=== PATIENT | male | born 1965 | race Hispanic/Latino ===

== ENCOUNTER 2016-06-02 21:23 | Emergency (ER) | payer OTHER ==
[~2016-06-02] VITALS: Ht 167.6 cm; Wt 72.7 kg
[~2016-06-02 21:23] MED LIST: ASPI325T32 PO; ATOR20TA PO; CITA40TA13 PO; CLOP75TA28 PO; LISI-571 PO; LORA-303 PO; METO25TA6 PO; ONDA-54 PO; ONDA4TAB9 PO; TRAZ-115 PO
[2016-06-02 21:27] VITALS: BP 130/78; PULSE 92; RESP 16; O2SAT 97
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
[2016-06-02 21:59] LABS: Mean Corpuscular Hemoglobin 29.9 pg (27.0-35.0); Mean Corpuscular Volume 87.4 fL (81-100)
[2016-06-02 22:00] LABS: BASOPHILS % (AUTO) 0.2 % (0-3); EOSINOPHILS % (AUTO) 0.6 % (0-5); MONOCYTES % (AUTO) 7.5 % (4-12); Platelet Count 318 bil/L (150-400)
[2016-06-03 04:05] VITALS: BP 127/78; PULSE 88; RESP 16; O2SAT 96
[2016-06-03 07:52] VITALS: BP 155/91; PULSE 101; RESP 15; O2SAT 97
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
[2016-06-03 10:25] VITALS: BP 147/84; PULSE 99; RESP 19; O2SAT 96
[2016-06-03] MEDS ORDERED: CEPH-512 PO (10:37)
== END 2016-06-03 10:49 | disposition home or self-care (01) ==
LOC: SED 21:23
DX: S02.40DA Maxillary fracture, left side, initial encounter for closed fracture (principal); W18.39XA Other fall on same level, initial encounter; Y93.89 Activity, other specified; Y92.89 Other specified places as the place of occurrence of the external cause; Y99.8 Other external cause status; R45.851 Suicidal ideations; F10.120 Alcohol abuse with intoxication, uncomplicated; I11.9 Hypertensive heart disease without heart failure; E11.59 Type 2 diabetes mellitus with other circulatory complications; I25.10 Atherosclerotic heart disease of native coronary artery without angina pectoris; I25.2 Old myocardial infarction; E78.5 Hyperlipidemia, unspecified; Z95.5 Presence of coronary angioplasty implant and graft; Z79.82 Long term (current) use of aspirin; Z59.0 Homelessness
CPT/HCPCS: 70450; 70486; 80053; 81002; 82075; 84443; 85025; 90791; 99284; G0480

== ENCOUNTER 2016-06-11 23:12 | Inpatient (IN) | payer OTHER ==
[~2016-06-11] VITALS: Ht 167.6 cm; Wt 77.5 kg
[~2016-06-11 23:12] MED LIST changes: +CEPH-512 PO
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
[2016-06-11 23:20] VITALS: BP 143/95; PULSE 101; RESP 16; O2SAT 98
[2016-06-11] MEDS ORDERED: Haloperidol 5 mg/mL Inj IM PRN (23:35)
[2016-06-12] VITALS (11 sets, daily range): BP systolic 123–151; BP diastolic 78–102; PULSE 83–106; RESP 16–24; O2SAT 96–100
--- NOTE | 2016-06-12 10:13 | DRSVH ---
PROCEDURE: CT BRAIN WITHOUT CONTRAST ([id number]) INDICATIONS: off balance TECHNIQUE: Noncontrast 4.5 mm thick angled axial sections acquired from the foramen magnum to the vertex, with c oronal reformats. COMPARISON: [facility], CT, CT BRAIN WO CON, 06/02/2016, 22:06. FINDINGS: Image quality: Excellent. CSF spaces: Basal cisterns are patent. No extra-axial fluid collections. Ventricles are normal in size and shape. Brain: No intracranial hemorrhage, mass, or mass effect. There are small areas of encephalomalacia redemonstrated in the inferior right frontal lobe and right temporal lobe consistent with sequela of prior trauma or infarct. There are bilateral subcortical and periventricular areas of white matter h ypoattenuation consistent with moderate chronic small vessel ischemic changes. Skull and face: Calvarium and visualized facial bones demonstrate no acute fractures. There are fra ctures of the medial and lateral easley of the left maxillary sinus and lateral wall of the left orbit redemonstrated. Sinuses: Visualized sinuses redemonstrate complete opacification of the left maxillary sinus and mod erate mucosal thickening within the ethmoid and right maxillary sinuses. There is mild thickening wi thin the sphenoid sinuses. The mastoid air cells are clear. IMPRESSION: 1. No acute intracranial abnormality. 2. Small areas of encephalomalacia in the inferior right frontal and right temporal lobes consistent with sequela of prior trauma or infarcts redemonstrated. 3. Moderate chronic white matter small vessel ischemic changes. 4. Subacute fractures of the left orbit and maxillary sinus easley redemonstrated. 5. Sinus mucosal disease as well as complete opacification of the left maxillary sinus again noted. Dictated by: Italo Islas M.D. on 06/12/2016 at 10:03 Approved by: Italo Islas M.D. on 06/12/2016 at 10:12
--- NOTE | 2016-06-12 10:18 | DRSVH ---
PROCEDURE: CT CERVICAL SPINE WITHOUT CONTRAST ([id number]) INDICATIONS: fall TECHNIQUE: Noncontrast 3 mm thick sections acquired from the skull base to the T4 level. Sagittal and coronal r eformats were then constructed. For radiation dose reduction, the following was used: automated exp osure control, adjustment of mA and/or kV according to patient size. COMPARISON: [facility], CT, C-SPINE W/O CONTRAST, 02/21/2014, 7:25. FINDINGS: Image quality: Excellent. Bones: No fractures or dislocations. Visualized superior ribs are intact. Mild multilevel degenerat leigh disc changes and facet arthropathy are noted. Soft tissues: Prevertebral soft tissues are normal in thickness. No paravertebral hematomas. No ap ical pneumothoraces. Atherosclerotic calcifications noted in the carotid arteries. IMPRESSION: No fracture. No acute osseous lesion. If symptoms and/or clinical suspicion for patholog y persists, evaluation with MRI may be helpful for further assessment. Dictated by: Pau Sheffield MD, PhD on 06/12/2016 at 10:06 Approved by: Pau Sheffield MD, PhD on 06/12/2016 at 10:16
[2016-06-12] MEDS ORDERED: 0.9% Sodium Chloride 1,000 ML IV ONE (12:43)
[2016-06-12] MEDS ORDERED: Ondansetron 2 mg/mL 2 mL Inj IVPUSH PRN ×3 (12:45→14:50)
[2016-06-12 12:46] LABS: BASOPHILS % (AUTO) 0.4 % (0-3); EOSINOPHILS % (AUTO) 0.6 % (0-5); MONOCYTES % (AUTO) 7.2 % (4-12); Mean Corpuscular Hemoglobin 29.4 pg (27.0-35.0); Mean Corpuscular Volume 88.7 fL (81-100); NEUTROPHILS % (AUTO) 59.8 % (40-74); Platelet Count 225 bil/L (150-400)
[2016-06-12] MEDS ORDERED: LISI-571 PO (13:54)
[2016-06-12] MEDS ORDERED: PRAV40TA PO (13:54)
[2016-06-12] MEDS ORDERED: ASPI-973 PO (13:54)
[2016-06-12] MEDS ORDERED: CITA20TA11 PO (13:57)
[2016-06-12] MEDS ORDERED: CARV3.122 PO (13:59)
[2016-06-12] MEDS ORDERED: MIRT15TA6 PO (14:03)
[2016-06-12] MEDS ORDERED: Alum-Mag Hydrox-Simeth 30 mL Suspension PO PRN (14:05)
[2016-06-12] MEDS ORDERED: Thiamine Inj 100 MG, Folic Acid Inj 1 MG, Magnesium Sulfate 50% Inj 2 GM, Multivitamins... IV ONE ×10 (14:20→14:50)
[2016-06-12] MEDS ORDERED: Senna-Docusate 8.6-50 mg Tablet PO PRN (14:50)
[2016-06-12] MEDS ORDERED: Thiamine Inj 100 MG in 0.9% Sodium Chloride 100 ML IV SCH (14:50)
[2016-06-12 15:27] LABS: APPEARANCE,URINE HAZY (CLEAR,HAZY); COLOR,URINE STRAW (YELLOW); OCCULT BLOOD,URINE NEGATIVE (NEGATIVE); UROBILINOGEN,URINE NORMAL (NORMAL)
[2016-06-12] MEDS: 0.9% Sodium Chloride 1,000 ML IV SCH (15:44)
[2016-06-12] MEDS: Multivit-Miner-Folic Acid-Iron Tablet PO SCH (17:05)
--- NOTE | 2016-06-12 17:40 | PCM.HPMED ---
Subjective Date of Service Jun 12, 2016 Primary Provider: Admitting Physician: Oracio Donovan MD Primary Care Physician: [facility] Attending Physician: Oracio Donovan MD Admit Status: From the Emergency Department, Full Admit, [facility] Telemetry Chief Complaint: Acute alcohol withdrawal with seizure. History of Present Illness: "A 51 year old homeless male with a medical history including alcohol dependence , CAD, Non-STEMI, diabetes, hypertension, anxiety, suicidal ideation, and frequent ED visits with a previous diagnosis of malingering presents to the ED via EMS after being found on the ground at [employer] just prior to arrival, intoxicated on alcohol. EMS found the patient belligerent with a heart rate of 110 and a blood pressure of 140 systolic. The patient reports that he drank alcohol today because he lost all of his medications 2.5 weeks ago and that he "collapsed" this evening because he "didn't know where he was." The patient denies pain, suicidal ideation, homicidal ideation, or other symptoms currently. He regularly visits [facility]. The patient was recently in the ED on 06/02/16 for alcohol intoxication, suicidal ideation, a ground level fall, and a maxillary sinus fracture." Emergency physician history. The patient is rolled slightly non-participatory during our interview. He states that he drinks about 3 tall beers a day and his last was yesterday. He notes left shoulder pain. He did have a fall in the emergency department. He apparently had presented better intoxicated and was given sedatives and observed overnight. He then went into probable withdrawal this morning. Imaging was performed in the emergency department. No acute injury was noted. The patient notes he has been homeless for about the last year. He denies any illicit drug use. He does note a history of recurrent alcohol fall seizures. He denies chewing on this time. No urinary incontinence. He denies a headache or visual changes. No numbness or weakness of arms or legs. He also denies any chest pain or abdominal pain. He is hungry. He really cannot recall any other history over the last couple of days. Review of Systems: He notes normal bowel movements no blood per rectum normal urination. I will also reviewed and otherwise negative except as noted in history of present illness. Allergies Coded Allergies: No Known Allergies (Verified Allergy, Unknown, 02/24/15) Home Medications He has not been taking any medications for the last 2-1/2 weeks. PMH 1. Active alcoholism 2. History of alcohol all 3. History of alcohol fall seizures 4. History of CAD 5. History of NSTEMI. Family History He notes one uncle with alcoholism. Social History Hx Alcohol Use: Yes (DAILY "TAKES THE PAIN OF LIFE AWAY.") Hx Substance Use: No Hx Tobacco Use: No Smoking Status: Never Smoker Living Arrangement: Homeless Exam Vital Signs Vital Sign - Last Date Time Temp Pulse Resp B/P Pulse Ox O2 Delivery O2 Flow Rate FiO2 06/12/16 15:17 99 06/12/16 14:54 37.4 20 147/86 99 Nasal Cannula 1.00 Exam Oriented 3. No distress. Fluent speech. Flat affect. Slightly slow speech. Normal skull. Normal nose and ears. Anicteric sclera, symmetric pupils Oropharynx is unremarkable, no facial droop. Neck is supple, normal thyroid. No adenopathy. Lungs are clear, normal effort rate. Heart is regular without murmur gallop or rub. Abdomen soft, nondistended or tender. Extremities are free of pedal edema. Good radial and pedal pulses. Skin is free of rash, lesions. No petechiae or ecchymosis. Joints are grossly normal. Cranial nerves are grossly normal. Motor strength is normal in all extremities. Normal muscular tone. Lab and Diagnostics Result Diagram: 06/12/16 1225 06/12/16 1225 X-Rays, CTs and MRIs CT brain: 1. No acute intracranial abnormality. 2. Small areas of encephalomalacia in the inferior right frontal and right temporal lobes consistent with sequela of prior trauma or infarcts redemonstrated. 3. Moderate chronic white matter small vessel ischemic changes. 4. Subacute fractures of the left orbit and maxillary sinus easley redemonstrated. 5. Sinus mucosal disease as well as complete opacification of the left maxillary sinus again noted. CT cervical spine negative for acute fracture or dislocation. 12-lead ECG Normal sinus rhythm, without abnormalities. Assessment & Plan 1. Acute alcohol withdrawal, POA to rizo. The patient was placed on the alcohol fall protocol. He will also be fluid repleted and given thiamine and folate per protocol. 2. Alcohol fall seizure, POA. The patient will be placed on seizure precautions. 3. CAD, POA. This appears to be compensated. We will resume aspirin and beta- blockade as well as statin. 4. Alcohol induced hepatitis, POA. We will avoid Tylenol and follow clinically. Patients for resuscitation. Inpatient status, tonight's anticipated. Pain Evaluation: Adequate Pain Control Resuscitation Status: CPR: Attempt Resuscitation Time spent 40 minutes Oracio Donovan MD Jun 12, 2016 17:40
--- NOTE | 2016-06-12 18:12 | NUR ---
CIWA/Admit No reports of chest pain/pressure/discomfort. Tele SR/TACH 80s-l00s. BP within normal limits, distal pulses strong. No reports of SOB/dizziness. SPO2 100% on RA. Per report in ED, patient can desat to low 90s while sleeping. Continuous SPO2 on per CIWA protocol, CIWA 12-14. No reports of n/v/d/c or abdominal pain. Voiding without complication. 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 Patient drowsy, speech slurred/mumbled. Oriented to self only, knew he was in hospital but not city/year. JONY, reports bilateral numbness plantar surface of feet.
[2016-06-12] MEDS: Famotidine Inj 50 ML IV SCH (19:56)
[2016-06-12] MEDS: Heparin 5,000 Unit/mL Inj SUBQ SCH (19:56)
[2016-06-13] VITALS (7 sets, daily range): BP systolic 139–154; BP diastolic 96–106; PULSE 70–110; RESP 16–19; O2SAT 93–98
[2016-06-13] MEDS: 0.9% Sodium Chloride 1,000 ML IV SCH ×2 (04:13→08:35)
[2016-06-13 04:30] LABS: BASOPHILS % (AUTO) 0.7 % (0-3); EOSINOPHILS % (AUTO) 1.3 % (0-5); MONOCYTES % (AUTO) 11.1 % (4-12); Mean Corpuscular Hemoglobin 29.5 pg (27.0-35.0); Mean Corpuscular Volume 88.4 fL (81-100); NEUTROPHILS % (AUTO) 59.6 % (40-74); Platelet Count 196 bil/L (150-400)
--- NOTE | 2016-06-13 06:20 | NUR ---
CIWA pts CIWA score between 6-16 gave 30mg of IV Valium total this shift, pts main complaint has been his head and shoulder pain, gave tylenol and roxycodone x2 this shift, pt up with 1pa to BSC to void, tolerating po well. IVF running, no seizure noted
[2016-06-13] MEDS ORDERED: Potassium Chloride Oral 20 mEq SR Tab(K 3 - 3.7 & Creat < 2) PO ONE (06:45)
[2016-06-13] MEDS: Multivit-Miner-Folic Acid-Iron Tablet PO SCH (08:34)
[2016-06-13] MEDS: Heparin 5,000 Unit/mL Inj SUBQ SCH ×2 (08:34→20:16)
[2016-06-13] MEDS: Famotidine Inj 50 ML IV SCH ×2 (08:34→20:15)
--- NOTE | 2016-06-13 10:46 | PCM.PNMED ---
Subjective Date of Service Jun 13, 2016 Subjective Patient is somnolent. Somewhat anxious. No hallucinations. No seizures. No headache. No nausea vomiting or abdominal pain. No overnight events. Exam Vital Signs Vital Sign - Last Date Time Temp Pulse Resp B/P Pulse Ox O2 Delivery O2 Flow Rate FiO2 06/13/16 08:24 36.6 99 18 154/98 97 Room Air 06/12/16 14:54 1.00 Intake and Output 06/12/16 06/12/16 06/13/16 Cumulative From/Thru 15:00 23:00 07:00 06/12/16 15:25 - 06/13/16 06:32 Intake Total 1703 ml 2102 ml 3805 ml Output Total 550 ml 2750 ml 3300 ml Balance 1153 ml -648 ml 505 ml Intake Oral 800 ml 640 ml 1440 ml IV Total 903 ml 1462 ml 2365 ml Output Urine Total 550 ml 2750 ml 3300 ml # Bowel Movements 2 2 Exam Alert and oriented 3, no distress. Fluent speech. Slurred speech. Somnolent. Not tremulous. Anicteric sclera. Lungs are clear with normal rate and effort Heart is regular without murmur gallop or rub Abdomen soft nontender, flat Extremities are free of edema. Skin is free of rash or lesions. IVs and Medications Medications Reviewed: Medications were reviewed in detail Lab and Diagnostics Result Diagram: 06/13/1641306/13/16413 X-Rays, CTs and MRIs CT brain: 1. No acute intracranial abnormality. 2. Small areas of encephalomalacia in the inferior right frontal and right temporal lobes consistent with sequela of prior trauma or infarcts redemonstrated. 3. Moderate chronic white matter small vessel ischemic changes. 4. Subacute fractures of the left orbit and maxillary sinus easley redemonstrated. 5. Sinus mucosal disease as well as complete opacification of the left maxillary sinus again noted. CT cervical spine negative for acute fracture or dislocation. 12-lead ECG Normal sinus rhythm, without abnormalities. Assessment & Plan 1. Acute alcohol withdrawal, POA to rizo. The patient was placed on the alcohol fall protocol. He will also be fluid repleted and given thiamine and folate per protocol. This is improved. He is currently scoring about 14 on the alcohol protocol. No change in current plan. 2. Alcohol fall seizure, POA. The patient will be placed on seizure precautions. No recurrent seizure activity. 3. CAD, POA. This appears to be compensated. We will resume aspirin and beta- blockade as well as statin. This is stable. 4. Alcohol induced hepatitis, POA. We will avoid Tylenol and follow clinically. Patients for resuscitation. Inpatient status, tonight's anticipated. Resuscitation Status: CPR: Attempt Resuscitation Oracio Donovan MD Jun 13, 2016 10:46
--- NOTE | 2016-06-13 13:14 | NUR ---
Social Work: Screen D: Per EMR review, pt is a 51 year old male admitted for Severe ETOH Withdrawal. Pt is RAFAEL GOLDEN. PCP is through [facility]. [facility] is not listed. Advanced directives not completed- information provided by MANAGER DATA. Readmit score is moderate, 4/8. Pt's CIWA score is currently 7. MANAGER DATA discussed case with bedside RN. RN states that pt is conversational and is requesting MANAGER DATA. MANAGER DATA met with pt at bedside to discuss discharge planning. Pt reports that he is homeless and currently living on the streets. Pt is interested in housing resources and states that he does not wish to go the [facility] as he has previously been there and does not like a particular person who lives there. MANAGER DATA provided community resources along with contact info for the homeless shelters in [facility]. Pt states he does not wish to go to these facilities because they are out of the [facility]. MANAGER DATA discussed pt's history of substance use. Pt confirms a long history of drinking but does not elaborate on how much. Pt expresses interest in assistance with housing and treatment and signed LEYLA for [facility]. Pt then elaborated that he was previously open with [facility] for chemical dependency and that his counselor is Ty. Pt would still like to talk to Es with [facility]. t/c to [facility] at . They state that they cannot release any information to the MANAGER DATA because they do not have an LEYLA signed by the pt. A signed LEYLA by the pt can be faxed to , if the pt wishes. A: Pt who is homeless at baseline. P: Referral provided to CDP with [facility] who can assist with coordinating with pt's [facility] counselor, if he is established. KIM Umanzor
--- NOTE | 2016-06-13 17:49 | NUR ---
CIWA/HR/Pain No reports of chest pain/pressure/discomfort. Tele sinus tachy 99-low 100s, No reports of SOB, reports dizziness with standing. SPO2 on RA 97%, continuous SPO2 on per CIWA protocol. Mild abdominal pain with light palpation, reports mild intermittent nausea -- no heaving/emesis. Bowel tones normal, BM formed brown yesterday, no diarrhea or constipation. Patient speech slurred/mumbled. Oriented to self only, knows he is currently in a hospital but not the city/year. JONY, reports bilateral numbness plantar surface of feet. Patient becoming increasingly restless, CIWA 14-16. Reports shoulder/neck pain -- per patient "from when I fell", administered 5mg roxicodone x2, reports mild relief.
--- NOTE | 2016-06-13 21:38 | NUR ---
AMA: Pt noted to be increasing restless, PRN Valium given per CIWA protocol in addition to Roxicodone for pain. Pt up pacing around room states he "just need to leave for an hour and then he will come back" . electric meter installer helper to room, Pt a/ox3. putting on cloths and wanting to leave. Dr. Jean paged and made aware by electric meter installer helper. IV d/c intact. Explained to pt if he leaves he can not just return back to his room and he will have to come back through ER. Reviewed with pt potentials for leaving against medical advice including Withdrawal seizures, fall, injury, and . Pt verbalized understanding and signed AMA form.
--- NOTE | 2016-06-14 15:03 | PCM.DC.MED ---
Discharge Summary Date of Service Jun 13, 2016 Dates of Hospitalization Date of Hospital Admission Jun 12, 2016 at 14:06 Date of Discharge: Jun 13, 2016 Providers: Admitting Physician: Oracio Donovan MD [facility]: Oracio Donovan MD Diagnosis at Time of Discharge Diagnosis at Time of Discharge 1. Against medical is discharged 2. Alcohol withdrawal syndrome 3. Alcohol withdrawal seizure 4. Alcoholism 5. Alcohol induced hepatitis Procedures XRay, CTs & MRIs CT brain: 1. No acute intracranial abnormality. 2. Small areas of encephalomalacia in the inferior right frontal and right temporal lobes consistent with sequela of prior trauma or infarcts redemonstrated. 3. Moderate chronic white matter small vessel ischemic changes. 4. Subacute fractures of the left orbit and maxillary sinus easley redemonstrated. 5. Sinus mucosal disease as well as complete opacification of the left maxillary sinus again noted. CT cervical spine negative for acute fracture or dislocation. ECG 12 Lead Normal sinus rhythm, without abnormalities. Brief History "A 51 year old homeless male with a medical history including alcohol dependence , CAD, Non-STEMI, diabetes, hypertension, anxiety, suicidal ideation, and frequent ED visits with a previous diagnosis of malingering presents to the ED via EMS after being found on the ground at [employer] just prior to arrival, intoxicated on alcohol. EMS found the patient belligerent with a heart rate of 110 and a blood pressure of 140 systolic. The patient reports that he drank alcohol today because he lost all of his medications 2.5 weeks ago and that he "collapsed" this evening because he "didn't know where he was." The patient denies pain, suicidal ideation, homicidal ideation, or other symptoms currently. He regularly visits [facility]. The patient was recently in the ED on 06/02/16 for alcohol intoxication, suicidal ideation, a ground level fall, and a maxillary sinus fracture." Emergency physician history. The patient is rolled slightly non-participatory during our interview. He states that he drinks about 3 tall beers a day and his last was yesterday. He notes left shoulder pain. He did have a fall in the emergency department. He apparently had presented better intoxicated and was given sedatives and observed overnight. He then went into probable withdrawal this morning. Imaging was performed in the emergency department. No acute injury was noted. The patient notes he has been homeless for about the last year. He denies any illicit drug use. He does note a history of recurrent alcohol fall seizures. He denies chewing on this time. No urinary incontinence. He denies a headache or visual changes. No numbness or weakness of arms or legs. He also denies any chest pain or abdominal pain. He is hungry. He really cannot recall any other history over the last couple of days. Hospital Course 1. Acute alcohol withdrawal, POA to rizo. The patient was placed on the alcohol fall protocol. He will also be fluid repleted and given thiamine and folate per protocol. This is improved. He is currently scoring about 14 on the alcohol protocol. No change in current plan. 2. Alcohol fall seizure, POA. The patient will be placed on seizure precautions. No recurrent seizure activity. 3. CAD, POA. This appears to be compensated. We will resume aspirin and beta- blockade as well as statin. This is stable. 4. Alcohol induced hepatitis, POA. We will avoid Tylenol and follow clinically. Patients for resuscitation. Inpatient status, tonight's anticipated. This patient was admitted for alcohol withdrawal syndrome. This followed and I will call call seizure. He is placed on all of her progressive improvement. He then left against medical on Friday evening of the . Exam Vital Signs (Last) Date Time Temp Pulse Resp B/P Pulse Ox O2 Delivery O2 Flow Rate FiO2 06/13/16 20:13 36.6 90 19 150/106 98 Room Air 06/12/16 14:54 1.00 Exam Patient was seen and examined on the day of discharge, see progress note. Test 06/12/16 00:00 06/12/16 12:25 06/12/16 15:44 06/13/16 04:14 Urine Color Straw (YELLOW) Urine Appearance Hazy (CLEAR,HAZY) Urine pH 6.0 (5.0-8.0) Urine Specific [place] 1.005 (1.003-1.035) Urine Protein Negativemg/dL (NEG,TRACE) Urine Glucose (UA) Negativemg/dL (NEGATIVE) Urine Ketones Negativemg/dL (NEGATIVE) Urine Occult Blood Negative (NEGATIVE) Urine Nitrite Negative (NEGATIVE) Urine Bilirubin Negative (NEGATIVE) Urine Urobilinogen Normalmg/dL (NORMAL) Urine Leukocyte Esterase Negative (NEGATIVE) Urine RBC 0-2/hpf (0-2) Urine WBC 0-5/hpf (0-5) Urine Epithelial Cells Occasional/hpf (NONE-MOD) Urine Crystals None seen (NONE SEEN) Urine Bacteria None/hpf (NONE-FEW) Urine Hyaline Casts None/lpf (NONE) Urine Granular Casts None seen (NONE SEEN) Urine Waxy Casts None seen (NONE SEEN) Urine Red Blood Cell Casts None seen (NONE SEEN) Urine White Blood Cell Casts None seen (NONE SEEN) Urine Mucus None seen (None Seen) Urine Trichomonas None seen (NONE SEEN) Urine Yeast None (NONE SEEN) Urinalysis Comment None Urine Culture Reflexed Not indicated Hold Urine Received (Received) Hold [place] Top Tube Received (Received) Urine Opiates Screen Negative Urine Methadone Screen Negative Urine Barbiturates Screen Negative Urine Amphetamines Screen Negative Urine Benzodiazepines Screen Negative Urine Cocaine Metabolite Screen Negative Urine Cannabinoids Screen Negative White Blood Count 4.5th/mm3 (3.8-10.1) Red Blood Count 4.40mil/mm3 (4.40-5.80) Hemoglobin 13.0g/dL (13.8-17.2) Hematocrit 38.9% (41.0-50.0) Mean Corpuscular Volume 88.4fL (81-100) Mean Corpuscular Hemoglobin 29.5pg (27.0-35.0) Mean Corpuscular Hemoglobin Concent 33.4% (32.0-37.0) Red Cell Distribution Width 14.2% (12.3-15.4) Platelet Count 196bil/L (150-400) Neutrophils (%) (Auto) 59.6% (40-74) Lymphocytes (%) (Auto) 27.3% (14-46) Monocytes (%) (Auto) 11.1% (4-12) Eosinophils (%) (Auto) 1.3% (0-5) Basophils (%) (Auto) 0.7% (0-3) Sodium Level 136mEq/L (134-144) Chloride Level 99mEq/L (97-108) Carbon Dioxide Level 23mmol/L (18-29) Blood Urea Nitrogen 9mg/dL (6-24) Creatinine 0.65mg/dL (0.76-1.27) Estimat Glomerular Filtration Rate 137mL/min (>59) Glucose Level 82mg/dL (60-99) Calcium Level 8.3mg/dL (8.5-10.1) Magnesium Level 2.0mg/dL (1.6-2.6) Total Bilirubin 1.9mg/dL (0.0-1.2) Aspartate Amino Transf (AST/SGOT) 72U/L (0-50) Alanine Aminotransferase (ALT/SGPT) 40U/L (0-44) Alkaline Phosphatase 65U/L (25-150) Total Protein 6.3g/dL (6.4-8.4) Albumin 3.7g/dL (3.4-5.0) Test 06/13/16 12:07 Potassium Level 4.0mEq/L (3.5-5.2) Discharge Medications Discharge Medications Aspirin (Aspirin) 81 Mg Tablet 81 MG PO DAILY (Reported) Carvedilol (Carvedilol) 3.125 Mg Tablet 3.125 MG PO BID (Reported) Citalopram (Citalopram) 20 Mg Tablet 20 MG PO DAILY (Reported) Clopidogrel (Clopidogrel) 75 Mg Tablet 75 MG PO DAILY Prescribed by: JOSE CEDEÑO MD Lisinopril (Lisinopril) 5 Mg Tablet 5 MG PO BID (Reported) Pravastatin (Pravastatin) 40 Mg Tablet 40 MG PO DAILY (Reported) As needed Mirtazapine (Mirtazapine) 15 Mg Tablet 15 MG PO HS PRN PRN Insomnia (Reported) Followup Plan Disposition: Unknown Time spent 35 minutes Oracio Donovan MD Jun 14, 2016 15:03
== END 2016-06-13 21:00 | disposition left against medical advice (07) | DRG 770 ==
LOC: SED 23:12 → PCC 06-12 14:06
PROVIDERS: ADMIT Hospitalist; ATTEND Hospitalist
DX: F10.239 Alcohol dependence with withdrawal, unspecified (principal); K70.10 Alcoholic hepatitis without ascites; G40.89 Other seizures; I25.10 Atherosclerotic heart disease of native coronary artery without angina pectoris; I10 Essential (primary) hypertension; E11.9 Type 2 diabetes mellitus without complications; W01.0XXA Fall on same level from slipping, tripping and stumbling without subsequent striking against object, initial encounter; Y92.238 Other place in hospital as the place of occurrence of the external cause

== ENCOUNTER 2016-06-13 22:01 | Emergency (ER) | payer OTHER ==
[~2016-06-13] VITALS: Ht 167.6 cm; Wt 80.9 kg
[~2016-06-13 22:01] MED LIST changes: +ASPI-973 PO; -ASPI325T32 PO; -ATOR20TA PO; +CARV3.122 PO; -CEPH-512 PO; +CITA20TA11 PO; -CITA40TA13 PO; -LORA-303 PO; -METO25TA6 PO; +MIRT15TA6 PO; -ONDA-54 PO; -ONDA4TAB9 PO; +PRAV40TA PO; -TRAZ-115 PO
[2016-06-13 22:15] VITALS: BP 175/111; PULSE 121; RESP 20; O2SAT 99
== END 2016-06-13 22:45 | disposition home or self-care (01) ==
LOC: SED 22:01
DX: R42 Dizziness and giddiness (principal); Z53.21 Procedure and treatment not carried out due to patient leaving prior to being seen by health care provider

== ENCOUNTER 2016-07-16 17:41 | Emergency (ER) | payer OTHER ==
[2016-07-16 17:58] VITALS: BP 101/56; PULSE 84; RESP 20; O2SAT 98
[2016-07-16 18:00] VITALS: BP 119/89; PULSE 85; RESP 18; O2SAT 97
--- NOTE | 2016-07-16 18:10 | ED.REPORT ---
HPI-Chest Pain 40 and Over Date of Service July 16, 2016 ED Provider: Gerhard Umaña PA-C Arturo is a 51-year-old male with a history of alcohol dependence, NSTEMI, hypertension, hyperlipidemiabrought to emergency department by EMS with concern for chest pain. Patient presented to alcohol rehabilitation facility apparently intoxicated and was refused admission. He then collapsed, complaining of chest pain. In the emergency department he provides no useful history, his speech is unintelligible. Nursing Notes Stated Complaint: CHEST PAIN Chief Complaint: Substance Abuse Nursing Notes Reviewed: Yes Allergies: Coded Allergies: No Known Allergies (Verified Allergy, Unknown, 02/24/15) Scheduled Aspirin (Aspirin) 81 Mg Tablet 81 MG PO DAILY Carvedilol (Carvedilol) 3.125 Mg Tablet 3.125 MG PO BID Citalopram (Citalopram) 20 Mg Tablet 20 MG PO DAILY Clopidogrel (Clopidogrel) 75 Mg Tablet 75 MG PO DAILY Lisinopril (Lisinopril) 5 Mg Tablet 5 MG PO BID Pravastatin (Pravastatin) 40 Mg Tablet 40 MG PO DAILY Scheduled PRN Mirtazapine (Mirtazapine) 15 Mg Tablet 15 MG PO HS PRN PRN Insomnia General Time Seen by MD: 18:04 Chief Complaint Chest pain Sudden in Onset?: Yes Past Medical History Past Medical History Notes: [employer]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 Patient has been diagnosed with malingering. Past Medical History NSTEMI - july 2013 Depression Alcohol dependence Hypertension Anxiety Hyperlipidemia Mitral regurgitation Cervical and lower back pain secondary to trauma Subdural hematoma Reports: Coronary artery disease, Diabetes mellitus Past Surgical History Coronary stenting to mid left anterior artery and mid Left circumflex artery. Family History Patient denies any family history of heart disease or cancers. Smoking History Never Smoker Social History Patient is not and does not have any children. He denies any history of tobacco use, but admits to smoking marijuana. He also has a history of alcohol abuse. He usually drinks beer. He denies any history of drug abuse. Alcohol Use: >5 per day Drug Use: Denies drug use Other Social History: Local resident, Homeless Ambulatory Status Independent Review of Systems Unable to Obtain ROS Patient condition Physical Exam General: Intoxicated Appearing, well developed, well nourished, no acute distress. Smells of alcohol. Head: Atraumatic, normocephalic. Eyes: No scleral icterus or injection. No discharge. Vision grossly intact. ENT: Voice clear, hearing grossly intact. Respiratory: Regular rate and rhythm. Breath sounds present, clear to auscultation and equal bilaterally. No respiratory distress. No increased work of breathing, speaks in complete sentences. Cardiovascular: Regular rate and rhythm, without murmur, gallop or rub. No pedal edema. Skin: Warm and dry. Neurological: Grossly nonfocal. Psychological: Speech slurred, garbled. Behavior mildly agitated Initial Vital Signs Vital Signs (First) Date Time Temp Pulse Resp B/P Pulse Ox O2 Delivery O2 Flow Rate FiO2 07/16/16 17:58 36.2 84 20 101/56 98 Room Air Initial VS: Vital signs normal Interpretation & Diagnostics ECG Interpretation ECG Interpretation: Nonspecific ST-T wave changes, no acute ischemia Interpreted by: ED physician (Dr. Martin) Re-Eval/Medical Decision Med Decision/Clinical Course Arturo is a 51-year-old male presenting via EMS after he turned away from crisis respite, and subsequently complaining of chest pain. Patient provides no useful history. Physical examination reveals normal heart tones, regular rate and rhythm, clear lungs. EKG reveals nonspecific waveform changes, no ischemic changes. Patient refuses blood draw, and becomes uncooperative. He wishes to be discharged. This point the patient speaks fairly clearly, though his words are slurred and is clearly intoxicated. He is able to stand and walk on his own as well as dress himself. He states that he is homeless now, but must go check in on his mother. Patient had a discussion with Dr. Martin, and admits that earlier in the day he had "problems with my heart" but denies problems now. States that he will return to the emergency department if he has any further chest pain. It is determined that he is clinically sober enough to make this determination and he is discharged to home. Discharge & Departure Departure Notes Patient department abruptly, and did not receive written discharge instructions. He did state that he would return to emergency department if his symptoms returned. Primary Impression: Alcohol intoxication Complication of substance-induced condition: uncomplicated Qualified Code: F10.120 - Alcohol abuse with intoxication, uncomplicated Additional Impression: Chest pain Chest pain type: unspecified Qualified Code: R07.9 - Chest pain, unspecified Disposition: Home Discharge Condition All VS Reviewed: Yes Condition: Stable Referrals: [facility] ([facility]P) Attending Statement I was personally present for this evaluation. Shortly after arrival the patient became quite belligerent and was demanding to leave. I excused all the rest of the staff besides Mr. Umaña and we talked to the patient in some detail. While clearly he had alcohol on his breath, he was able to speak cogently and get himself dressed easily with no overt ataxia. He is able to articulate that while he did in fact have chest pain earlier in the day, he had none at the current time. He is very insistent that he requires another quests no further evaluation from us and desires to leave the department. He seems clinically sober and able to make his own decisions without being restrained, which is what it would take to keep him here. He acknowledges that the risk of undiagnosed heart attack and desires to leave in any case. Gerhard Umaña PA-C July 16, 2016 18:10 Temo Martin MD July 16, 2016 23:04
[2016-07-16 18:36] VITALS: BP 129/94; PULSE 84; RESP 16; O2SAT 99
== END 2016-07-16 18:46 | disposition home or self-care (01) ==
LOC: EDBD 17:41 → SED 17:41 → EDUNIT# 17:41 → SED 18:46
DX: F10.120 Alcohol abuse with intoxication, uncomplicated (principal); R07.9 Chest pain, unspecified; I11.9 Hypertensive heart disease without heart failure; I25.10 Atherosclerotic heart disease of native coronary artery without angina pectoris; E11.59 Type 2 diabetes mellitus with other circulatory complications; E78.5 Hyperlipidemia, unspecified; F32.9 Major depressive disorder, single episode, unspecified; Z59.0 Homelessness; Z79.82 Long term (current) use of aspirin

== ENCOUNTER 2016-08-12 12:23 | Emergency (ER) | payer OTHER ==
[~2016-08-12] VITALS: Ht 167.6 cm; Wt 81.2 kg
[2016-08-12 12:26] VITALS: BP 155/103; PULSE 94; RESP 18; O2SAT 97
--- NOTE | 2016-08-12 13:10 | ED.REPORT ---
HPI-Extremity Problem Lower Date of Service Aug 12, 2016 ED Provider: Destin Briseno MD Pt is a 51 y/o male presenting to the ED c/o RLE swelling from the foot to the knee onset 1 week ago. He c/o associated mild erythema about the area of swelling. He has no other complaints or concerns at this time. He has no history of DVT but does have a history of LA. He takes aspirin daily at an unknown dose. He is unsure of any recent trauma or injury to the leg. He still drinks alcohol daily and experiences tremors when he doesn't. He has a history of homelessness. Nursing Notes Stated Complaint: LEG PAIN Chief Complaint: Extremity Trauma Nursing Notes Reviewed: Yes (Coolest Cooler not reconciled) Allergies: Coded Allergies: No Known Allergies (Verified Allergy, Unknown, 02/24/15) Scheduled Aspirin (Aspirin) 81 Mg Tablet 81 MG PO DAILY Carvedilol (Carvedilol) 3.125 Mg Tablet 3.125 MG PO BID Citalopram (Citalopram) 20 Mg Tablet 20 MG PO DAILY Clopidogrel (Clopidogrel) 75 Mg Tablet 75 MG PO DAILY Lisinopril (Lisinopril) 5 Mg Tablet 5 MG PO BID Pravastatin (Pravastatin) 40 Mg Tablet 40 MG PO DAILY Scheduled PRN Mirtazapine (Mirtazapine) 15 Mg Tablet 15 MG PO HS PRN PRN Insomnia General Time Seen by MD: 13:03 Chief Complaint Other (rle swelling) Hx Obtained From: Patient Arrived By: Walk-in Onset Occurred: 1 week ago Symptom Duration: Since onset Severity: Current: No pain currently Severity: Maximum: No pain Similar Sx Previous: No Past Medical History Past 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 Patient has been diagnosed with malingering previously Past Medical History Multiple prior visits to the ED relating to EtOH abuse CAD and NSTEMI - july 2013 DM Depression Alcohol abuse and alcohol dependence Hypertension Anxiety Hyperlipidemia Mitral regurgitation Cervical and lower back pain secondary to trauma Subdural hematoma Self-reported PE found during an admission for LA Past Surgical History Coronary stenting to mid left anterior artery and mid Left circumflex artery. Family History Patient denies any family history of heart disease or cancers. Smoking History Never Smoker Social History Patient is not and does not have any children. He denies any history of tobacco use, but admits to smoking marijuana. He also has a history of alcohol abuse. He usually drinks beer. He denies any history of drug abuse. Alcohol Use: >5 per day Drug Use: Denies drug use Other Social History: Local resident, Homeless Ambulatory Status Independent Review of Systems Constitutional: Denies: Chills, Fever Musculoskeletal: Reports: Extremity swelling Complete sys rev & neg: except as marked. Respiratory: Denies: Non-productive cough, Shortness of breath Cardiovascular: Denies: Chest pain, Dyspnea on exertion GI: Denies: Abdominal pain, Nausea, Vomiting Physical Exam Initial Vital Signs Vital Signs (First) Date Time Temp Pulse Resp B/P Pulse Ox O2 Delivery O2 Flow Rate FiO2 08/12/16 12:26 36.2 94 18 155/103 97 Initial VS: Reviewed, Vital signs normal (mild HTN) Head / Eyes: Atraumatic, Normocephalic, PERRL ENT: Mucous membranes moist, Conjunctiva normal, No scleral icterus Neck: Supple, Full range of motion Respiratory: Breath sounds normal, Clear to auscultation, No respiratory distress Cardiovascular: Regular rate & rhythm, Heart sounds normal, Intact distal pulses Abdomen / GI: Soft, No distention Skin: Warm, Dry, No cyanosis Neurologic: Alert, Oriented, Nonfocal Psychiatric: Mood/affect normal, Behavior normal, Normal thought content Lower Extremity / Pelvis / MS: Full range of motion, No deformity, Neurologic intact, Vascular intact, No compartment syndrome Swollen right leg Tiny superficial abrasion over paulson Ankle / Foot: Full range of motion, No deformity, Neurologic intact, Vascular intact, No compartment syndrome General/Constitutional: Awake, Alert, No acute distress, Well appearing, Cooperative, Not toxic appearing Does not appear clinically intoxicated Does not appear to be in withdrawal Interpretation & Diagnostics US Focused Lower Ext Venous Exam Performed by: Allied health pract Exam Type: Diagnostic Exam Interpreted by: Allied health pract Indication: Leg swelling right Interpretation: No evid deep vein thromb Re-Eval/Medical Decision Med Decision/Clinical Course This is a 51-year-old male presents with one-week history of increasing right leg swelling and concern for possible DVT with a d-dimer abnormally positive at urgent care. Does not recall any history of trauma, but does have a history of all of these high risk. His this, gets potentially a poor candidate for anticoagulation, although when I approach this topic he became very upset. He is here because he wants the swelling and a slight leg reduced. He has no previous history of DVT. He claims to be on aspirin and compliant with this, although today's states he is uncertain. Exam he does indeed have marked swelling of the majority of the right leg, highly concerning for DVT. There is a tiny abrasion without clinical signs of infection on the paulson, but no signs of cellulitis or secondary infection. The leg is neurovascularly intact he is ambulatory without difficulty. His vital signs are normal and he has no tachypnea or dyspnea. He admits to having "2 beers" earlier today, and reports he still drinks daily and gets withdrawal symptoms if he does not drink-but he demonstrates no current signs of clinical intoxication and has clear speech, normal ataxia and is able via normal history. Ultrasound was obtained, but was interpreted as negative for DVT. Please note however, the patient was noted to be sexually inappropriate towards the information technology account manager while the ultrasound was being performed. He was counseled immediately upon learning about this, and indicated that in the feet demonstrate such behavior again in the future he will be removed from the department. This point the patient has a negative ultrasound, but he does have a reasonable skin DVT, and in this setting a repeat ultrasound in 1 week would be indicated. He is instructed to follow up with the [facility]. He is instructed to take his aspirin daily, and I provided a prescription for compression stockings in the meantime. The patient is discharged ambulatory in good condition, clinically well-appearing, return and routine precautions are reviewed Source of Hx: Old records Re-Evaluation/Progress : Time of Eval: 14:25 Re-Evaluation/Progress Note: Pt rechecked. The patient was sexually inappropriate during US. Informed pt of plan for treatment. Pt understands and agrees with plan for treatment. F/U instructions and RTER warnings given. All questions addressed. Differential Diagnosis: Negative: Abscess, Achilles tendon rupture, Ankle dislocation, Arterial occlus/ischemia, Cellulitis, Guillain-[place] syndrome, Hip dislocation ant, Hip dislocation post, Knee effusion, Laceration, Neurovascular injury, Venous thromboembolism Counseled Regarding: Diagnosis, Need for follow-up, When/why to return to ED Discharge & Departure Impression: Primary Impression: Right leg swelling Additional Impression: Inappropriate social behavior Disposition: Home Discharge Condition All VS Reviewed: Yes Condition: Stable Additional Instructions: 1. Although the swelling in your leg was concerning for a blood clot, none was identified on ultrasound. A dangerous cause of the swelling was not identified. We recommend you continue your current aspirin-it should be a full strength 325 mg dose daily, and you need to call [facility] as you should have a repeat ultrasound done in ~1 week. 2. Please note your behavior with the information technology account manager was entirely inappropriate. Sexual comments and inappropriate behavior will not be tolerated , and if you behave in this fashion again, you will be removed from the department. 3. We recommend you purchase and wear a compression stocking on the right leg, to help reduce the edema. He can purchase even [id number] stockings, or better yet a prescription stocking to help. 4. Call for an appointment with [facility] Garibay Referrals: [facility] (PCP) Yifan Attestation Portions of this note were transcribed by Colton Kelley. I, Dr. Briseno personally performed the history, physical exam and medical decision-making; I reviewed and confirmed the accuracy of the information in the transcribed note. Signed by Yifan Saucedo, 08/12/16 - 1400 copies to: [facility] Destin Briseno MD Aug 12, 2016 13:10 COLTON KELLEY Aug 12, 2016 13:16
--- NOTE | 2016-08-12 14:41 | DRSVH ---
PROCEDURE: US VEINOUS LEG DUPLEX UNILATERAL, RIGHT INDICATIONS: swelling +dimer TECHNIQUE: Real-time imaging, as well as color and pulse Doppler interrogation, were performed of the lower extr emity deep veins from the inguinal ligament to the popliteal fossa. COMPARISON: None. FINDINGS: The deep veins are normally compressible, and free of intraluminal thrombus. Color and pu lse Doppler demonstrate normal phasic intraluminal flow. There is normal augmentation response to di stal compression maneuver. IMPRESSION: No deep venous thrombosis identified within the right lower extremity. Dictated by: Royal RONDON Interpreted: Corby Elena MD on 08/12/2016 at 14:40 Transcribed by: SALLIE on 08/12/2016 at 14:40 Approved by: Corby Elena M.D. on 08/12/2016 at 15:08
[2016-08-12 14:46] VITALS: BP 148/103; PULSE 100; RESP 18; O2SAT 98
== END 2016-08-12 14:30 | disposition home or self-care (01) ==
LOC: SED 12:33
DX: M79.89 Other specified soft tissue disorders (principal); F91.9 Conduct disorder, unspecified; I10 Essential (primary) hypertension; I25.10 Atherosclerotic heart disease of native coronary artery without angina pectoris; E78.5 Hyperlipidemia, unspecified; E11.9 Type 2 diabetes mellitus without complications; I25.2 Old myocardial infarction; Z79.82 Long term (current) use of aspirin; Z79.899 Other long term (current) drug therapy
CPT/HCPCS: 93971; 99284; G0463

== ENCOUNTER 2016-09-11 10:45 | Inpatient (IN) | payer OTHER ==
[~2016-09-11] VITALS: Ht 167.6 cm; Wt 75.6 kg
[2016-09-11] VITALS (7 sets, daily range): BP systolic 150–171; BP diastolic 90–110; PULSE 88–106; RESP 18–26; O2SAT 96–99
--- NOTE | 2016-09-11 11:22 | ED.REPORT ---
HPI-Overdose/Alcohol Toxicity Date of Service Sep 11, 2016 ED Provider: Destin Briseno MD The patient is a 51 year old male with history of multiple ED visits for alcohol abuse, coronary artery disease, diabetes mellitus, hypertension, hyperlipidemia, depression, and anxiety, who presents to the emergency department requesting alcohol detox. His last drink was yesterday around 1999. This morning he has experienced tremors, nausea, vomiting, diaphoresis, headache , and confusion. He also mentions chest pressure that began when he was riding his bike here. He denies auditory hallucinations or visual hallucinations. Nursing Notes Stated Complaint: DETOX/DEHYDRATED Chief Complaint: Substance Abuse Nursing Notes Reviewed: Yes ([employer], [employer] reconciled) Allergies: Coded Allergies: No Known Allergies (Verified Allergy, Unknown, 02/24/15) Scheduled Aspirin (Aspirin) 81 Mg Tablet 81 MG PO DAILY Carvedilol (Carvedilol) 3.125 Mg Tablet 3.125 MG PO BID Citalopram (Citalopram) 20 Mg Tablet 20 MG PO DAILY Clopidogrel (Clopidogrel) 75 Mg Tablet 75 MG PO DAILY Pravastatin (Pravastatin) 40 Mg Tablet 40 MG PO DAILY General Time Seen by Provider: 11:18 Chief Complaint Other (alcohol detox) Hx Obtained From: Patient Arrived By: Walk-in Onset Occurred: 1 - 4 hours ago Symptom Duration: Since onset Progression Since Onset: Constant, Gradually worsening Severity: Current: Severe Severity: Maximum: Severe Similar Sx Previous: Yes Past Medical History Past Medical History Notes: [employer]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 Patient has been diagnosed with malingering previously Past Medical History Multiple prior visits to the ED relating to EtOH abuse CAD and NSTEMI - july 2013 DM Depression Alcohol abuse and alcohol dependence Hypertension Anxiety Hyperlipidemia Mitral regurgitation Cervical and lower back pain secondary to trauma Subdural hematoma Self-reported PE found during an admission for VT Past Surgical History Coronary stenting to mid left anterior artery and mid Left circumflex artery. Family History Patient denies any family history of heart disease or cancers. Smoking History Never Smoker Social History Patient is not and does not have any children. He denies any history of tobacco use, but admits to smoking marijuana. He also has a history of alcohol abuse. He usually drinks beer. He denies any history of drug abuse. Alcohol Use: >5 per day Drug Use: Denies drug use Other Social History: Local resident, Homeless Ambulatory Status Independent Review of Systems GI: Reports: Nausea, Vomiting Skin: Reports Diaphoresis Neurologic: Reports: Confusion, Headache, Shaking Psychiatric: Denies: Hallucinations, auditory, Hallucinations, visual Complete sys rev & neg: except as marked. Physical Exam Initial Vital Signs Vital Signs (First) Date Time Temp Pulse Resp B/P Pulse Ox O2 Delivery O2 Flow Rate FiO2 09/11/16 10:50 36.1 106 26 154/105 99 Room Air 09/11/16 14:56 1 Initial VS: Reviewed, Vital signs abnormal Head / Eyes: Atraumatic, Normocephalic, PERRL ENT: Mucous membranes moist, Conjunctiva normal, No scleral icterus Neck: Supple, Non-tender, Full range of motion Extremities: Vascular intact, Neuro intact Skin: Warm, Dry, No cyanosis General/Constitutional: Awake, Alert The patient appears to be in severe alcohol withdrawal. He is anxious, tremulous, and has a hard time focusing. CIWA scale: 27. Respiratory / Chest: Atraumatic, Breath sounds NL, Breath sounds = bilat, No respiratory distress, No rales, No rhonchi, No wheezing Cardiovascular: Regular rhythm, Heart sounds NL, No gallop, No murmurs, No rubs Heart Rate / Rhythm: Positive: Tachycardia Abdomen: Atraumatic, Soft, Non-tender, No guarding, No rebound, BS normoactive , No distention, No hernia, No palpable mass, No pulsatile mass Organomegaly / Mass / Hernia: Negative: Hepatomegaly No ascites Neurologic: Oriented X3, Speech NL Tremulous Psychiatric: No hallucinations Skin: Warm Mild pruritic dermatitis with some lesions on the left flank Interpretation & Diagnostics Lab Results Interpretation Result Diagram: 09/11/16 1120 09/11/16 1120 Test 09/11/16 11:20 09/11/16 11:25 White Blood Count 5.5th/mm3 (3.8-10.1) Red Blood Count 4.68mil/mm3 (4.40-5.80) Hemoglobin 13.9g/dL (13.8-17.2) Hematocrit 40.9% (41.0-50.0) Mean Corpuscular Volume 87.4fL (81-100) Mean Corpuscular Hemoglobin 29.7pg (27.0-35.0) Mean Corpuscular Hemoglobin Concent 34.0% (32.0-37.0) Red Cell Distribution Width 14.9% (12.3-15.4) Platelet Count 150bil/L (150-400) Neutrophils (%) (Auto) 79.4% (40-74) Lymphocytes (%) (Auto) 10.3% (14-46) Monocytes (%) (Auto) 9.6% (4-12) Eosinophils (%) (Auto) 0% (0-5) Basophils (%) (Auto) 0.5% (0-3) Prothrombin Time 9.7sec (8.1-12.5) Prothromb Time International Ratio 0.91ratio Sodium Level 138mEq/L (134-144) Potassium Level 3.9mEq/L (3.5-5.2) Chloride Level 98mEq/L (97-108) Carbon Dioxide Level 19mmol/L (18-29) Blood Urea Nitrogen 11mg/dL (6-24) Creatinine 0.60mg/dL (0.76-1.27) Estimat Glomerular Filtration Rate 150mL/min (>59) Glucose Level 92mg/dL (60-99) Calcium Level 9.5mg/dL (8.5-10.1) Magnesium Level 1.6mg/dL (1.6-2.6) Total Bilirubin 1.7mg/dL (0.0-1.2) Aspartate Amino Transf (AST/SGOT) 194U/L (0-50) Alanine Aminotransferase (ALT/SGPT) 95U/L (0-44) Alkaline Phosphatase 82U/L (25-150) Troponin T 0.010ug/L (0.0-0.011) Total Protein 8.2g/dL (6.4-8.4) Albumin 4.5g/dL (3.4-5.0) Alcohols 22mg/dL (0-10) Hold Fishman Top Tube Received (Received) ECG Interpretation ECG Interpretation: Sinus tachycardia at 103 bpm No ischemic changes Borderline benign early repolarization No interval changes when compared to EKG from 07/2016 Time: 11:25 Interpreted by: ED physician X-Ray Chest Interpretation Chest Xray Interpretation: IMPRESSION: No acute process. Dictated by: Benton Duque M.D. on 09/11/2016 at 11:41 Interpretation / Wet Read by: Interpret - Radiologist Re-Eval/Medical Decision Med Decision/Clinical Course This is a 51-year-old male long history of alcohol abuse, intermittent admissions, who presents complaining withdrawal. He cannot tell me how much his been drinking recently, but his last drink was yesterday, his tremors, restlessness, confusion. Notes claims he bite her, but on arrival he is tachycardic, severely tremulous, mildly confused-and scores a CIWA scale of 27. He appears in very severe withdrawal initially. Currently he claimed some chest discomfort to the nursing staff-but does not endorse this to me. He does have a prior cardiac history, and notes he has been off all of his medications for the past 2 weeks. He received titrated diazepam with improvement, required multiple doses (15mg). His tachycardia resolved. But going just a short period as withdrawal symptoms recur, his CIWA score climbs again, he requires additional doses of diazepam. There are no beds at detox today the patient clearly needs to be in a monitored beds in this requiring enough benzodiazepines that admission is warranted for continued care. Patient received a banana bag as well. Case was discussed with admitting hospitalist Source of Hx: Old records Re-Evaluation/Progress #1: Time of Eval: 12:10 Re-Evaluation/Progress Note: Rechecked the patient. He is feeling better compared to our initial interview. Re-Evaluation/Progress #2: Time of Eval: 14:19 Re-Evaluation/Progress Note: Rechecked the patient. Discussed plan for admission. All questions were addressed. Consultation #1: Referral / Consult Name: Akanksha Banuelos DO Consulted With: Hospitalist Requested Call at: 14:18 Call Returned at: 15:00 Silicator: Will see patient, Agrees with eval, Agrees with plan, Accepts admit Consultation #2: Referral / Consult Name: Ronit Plascencia DO Consulted With: Hospitalist Call Returned at: 15:41 Note: Dr. Plascencia is now admitting the patient. Differential Diagnosis: Positive: Alcohol abuse, Negative: Intoxication, alcohol, Overdose, accidental, Overdose, acetominophen, Overdose, aspirin, Overdose, intentional Counseled Regarding: Diagnosis, Lab results, Need for admission Discharge & Departure Impression: Primary Impression: Alcohol withdrawal Complication of substance-induced condition: uncomplicated Qualified Code: F10.230 - Alcohol dependence with withdrawal, uncomplicated )( Condition at Discharge: No danger to self, No danger to others, No suicidal ideation, No homicidal ideation Disposition: ADMITTED TO HOSPITAL Discharge Condition All VS Reviewed: Yes Condition: Stable Referrals: Replaced by [facility] (PCP) Yifan Attestation Portions of this note were transcribed by Brooklyn Ramos. I, Dr. Briseno personally performed the history, physical exam and medical decision-making; I reviewed and confirmed the accuracy of the information in the transcribed note. Signed by: Yifan Hobbs, 09/11/2016 at 1600. copies to: Replaced by [facility] Destin Briseno MD Sep 11, 2016 11:22 Brooklyn Ramos Sep 11, 2016 11:28
[2016-09-11] MEDS ORDERED: Multivitamin w/Vit K Inj 10 ML, Thiamine Inj 100 MG, Folic Acid Inj 1 MG, Magnesium Sul... IV ONE ×5 (11:28)
[2016-09-11 11:40] LABS: BASOPHILS % (AUTO) 0.5 % (0-3); EOSINOPHILS % (AUTO) 0 % (0-5); MONOCYTES % (AUTO) 9.6 % (4-12); Mean Corpuscular Hemoglobin 29.7 pg (27.0-35.0); Mean Corpuscular Volume 87.4 fL (81-100); NEUTROPHILS % (AUTO) 79.4 % (40-74); Platelet Count 150 bil/L (150-400)
--- NOTE | 2016-09-11 11:44 | DRSVH ---
PROCEDURE: X-RAY CHEST ONE VIEW, PORTABLE ([id number]) INDICATIONS: chest pain TECHNIQUE: One view of the chest was acquired. COMPARISON: [facility], CR, XR CHEST 1VW (PORTABLE), 03/01/2016, 20:40. [facility], CR, XR CHEST 1VW (PORTABLE), 02/24/2015, 15:35. [facility], CR, CHEST 1VW (PORT ABLE), 02/21/2014, 7:11. FINDINGS: Surgical changes and devices: None. Lungs and pleura: No pleural effusions or pneumothorax. Lungs are clear. Mediastinum: Mediastinal contours appear normal. Heart size is normal. Bones and chest wall: No change in chronic left posterolateral 5th and 6th rib fractures. No suspici ous bony lesions. Overlying soft tissues appear unremarkable. IMPRESSION: No acute process. Dictated by: Benton Duque M.D. on 09/11/2016 at 11:41 Approved by: Benton Duque M.D. on 09/11/2016 at 11:42
[2016-09-11 11:58] LABS: INR 0.91 ratio
[2016-09-11 12:04] LABS: TROPONIN T 0.01 ug/L (0.0-0.011)
[2016-09-11 12:15] LABS: Magnesium 1.6 mg/dL (1.6-2.6)
[2016-09-11] MEDS ORDERED: Ondansetron 2 mg/mL 2 mL Inj IVPUSH PRN (15:45)
[2016-09-11] MEDS ORDERED: Polyethylene Glycol (PEG) 17 Gm Powder PO PRN (15:45)
[2016-09-11] MEDS ORDERED: Alum-Mag Hydrox-Simeth 30 mL Suspension PO PRN (15:45)
--- NOTE | 2016-09-11 15:51 | PCM.HPMED ---
Subjective Date of Service Sep 11, 2016 Primary Provider: Admitting Physician: [facility] Attending Physician: Chief Complaint: Alcohol withdrawal History of Present Illness: Arturo Acosta is a 51 year old man with past medical history significant for multiple previous ER visits and admission for alcohol withdrawal and withdrawal seizures, coronary artery disease with past NSTEMI, diabetes mellitus, hypertension, hyperlipidemia, depression and anxiety presented to [facility] emergency department due to alcohol withdrawal. Patient reports that his last drink was yesterday around 1999. This morning the patient began to experience tremors, vomiting, nausea, sweating, headache and slowed cognition. Patient reported chest pain to the nurse but currently denies any chest pain. He stated that the chest pain was quite different than cardiac chest pain he had when he had has heart attack. Patient has been off of his cardiac meds for about 2 weeks. In the ED his CIWA score of 27. She has received 5 mg of diazepam with improvement of his symptoms. He denies auditory hallucinations or visual hallucinations. He states that his right lower extremity is edematous in his calf has been enlarged and tender for many weeks now. He states that now he feels significantly better than when he first came in and is quite hungry. In the emergency department his vital signs were notable for tachycardia with a heart rate of 106, respiratory rate 26 and elevated blood pressure of 154/105. He was given diazepam and and a banana bag. Review of Systems: A comprehensive review of systems could not be performed due to the patient's altered mentation. Allergies Coded Allergies: No Known Allergies (Verified Allergy, Unknown, 02/24/15) Home Medications Scheduled Aspirin (Aspirin) 81 Mg Tablet 81 MG PO DAILY Carvedilol (Carvedilol) 3.125 Mg Tablet 3.125 MG PO BID Citalopram (Citalopram) 20 Mg Tablet 20 MG PO DAILY Clopidogrel (Clopidogrel) 75 Mg Tablet 75 MG PO DAILY Pravastatin (Pravastatin) 40 Mg Tablet 40 MG PO DAILY PMH Alcoholism Alcohol withdrawal Alcohol withdrawal seizures Coronary artery disease NSTEMI DM Depression Hypertension Anxiety Hyperlipidemia Mitral regurgitation Cervical and lower back pain secondary to trauma Subdural hematoma Surgical History Coronary stenting to mid left anterior artery and mid Left circumflex artery. Family History Patient denies any family history of heart disease or cancers. Social History Hx Alcohol Use: Yes (DAILY "TAKES THE PAIN OF LIFE AWAY.") Hx Substance Use: No Hx Tobacco Use: No Smoking Status: Never Smoker Exam Vital Signs Vital Sign - Last Date Time Temp Pulse Resp B/P Pulse Ox O2 Delivery O2 Flow Rate FiO2 09/11/16 14:56 37.0 96 20 166/101 96 Nasal Cannula 1 Exam General: No acute distress, well-developed, well-nourished, appropriately interactive, tremulous HEENT: Normocephalic, atraumatic. External ears without defect. Pupils equal, round, and reactive to light and accommodation. Anicteric sclerae, moist conjunctivae, and no lid lag. Oropharynx free of erythema and cobble stoning with moist mucosa. Neck: Supple with full range of motion. No jugular venous distension. No lymphadenopathy or thyromegaly. Cardiovascular: Regular rhythm with tachycardia with no murmurs, rubs, or gallops appreciated Pulmonary: Clear to auscultation bilaterally with no crackles, wheezes, or rhonchi. Normal respiratory effort with no use of accessory muscles. Abdomen: Bowel tones present. Soft, nontender, nondistended. No hepatosplenomegaly or masses appreciated. Extremities: No clubbing. Right calf quite firm and mildly tender to palpation. Skin: Normal temperature, turgor, and texture; has noticed a mild rash on his abdomen for the last several months. Neurological: Cranial nerves grossly intact. Normal muscle strength, tone, and bulk. Sensory function within normal limits. No known gait impairment. Tremulous. No asterixis. Psychiatric: Appears anxious. Alert and oriented to person, place, and time. Lab and Diagnostics Result Diagram: 09/11/16 1120 09/11/16 1120 X-Rays, CTs and MRIs X-RAY CHEST ONE VIEW, PORTABLE IMPRESSION: No acute process Dictated by: Benton Duque M.D. on 09/11/2016 at 11:41 Assessment & Plan Arturo Acosta is a 51 year old man with past medical history significant for multiple previous ER visits and admission for alcohol withdrawal and withdrawal seizures, coronary artery disease with past NSTEMI, diabetes mellitus, hypertension, hyperlipidemia, depression and anxiety presented to [facility] emergency department due to alcohol withdrawal Alcohol withdrawal, present on admission, active - Given banana bag the ED. - Continue daily thiamine supplementation - Initiate patient on CIWA protocol. Seizure precautions. - apron worker consultation Alcoholic hepatitis, present on admission, active -Maddrey's discriminant function of 9.1. No dictation for steroids at this time -Continue to monitor LFTs daily. Coronary artery disease, present on admission, stable -We will restart patient's home medications. -Patient did complain of a brief episode of chest pain so will trend troponins. First troponin was negative Right calf swelling, present on admission, active -Will rule out chronic DVT. LE doppler ordered. Chronic issues, present on admission: Diabetes mellitus -Diet-controlled -Most recent A1c was 5.8 in 2013. Will check A1c. Hypertension -Restart home medications as above Hyperlipidemia -Restart home medications as above Depression and anxiety -Consider outpatient counseling CODE STATUS: FULL CODE Patient is admitted under inpatient status with expected length of stay greater than 2 midnights due to severity of presenting symptoms, risk of adverse event, and complexity of treatment plan. VTE Prophylaxis: Sub-Q Heparin (Unfractionated) Resuscitation Status: CPR: Attempt Resuscitation Attending Statement Patient is seen and examined at 6:30 PM, tinea cruris additional diagnoses for which clotrimazole was given. Agree with above plan. Betzaida Saldivar DO Sep 11, 2016 15:51 Ronit Plascencia DO Sep 12, 2016 01:52
[2016-09-11] MEDS: 0.9% Sodium Chloride 1,000 ML IV SCH (17:17)
[2016-09-11] MEDS: Heparin 5,000 Unit/mL Inj SUBQ SCH (17:18)
--- NOTE | 2016-09-11 18:10 | NUR ---
ADMIT Admitted a 51/M into room 3031 at 1700 following report from Trini Syed, ED RN. Introduced to staff, bed/call light controls. Pt A&O, easily distracted and appears forgetful (asking questions over and over). Denies any pain at this time, states he has a PEREZ that "comes and goes" and throughout admission process would tell this RN "that PEREZ is here... now it's gone. Oh, it's back now! Now it's gone." Denies any N/V. Pt on 1L via AL for support, does not use 02 at baseline. Pt tremulous, noted on observation. Pt mildly diaphoretic, CIWA 8. Per pt report, he has not taken cardiac meds x2 weeks. He is currently homeless. Reports last drink last night at 1999. Pt placed on CL diet. TELE placed: SR in the 90's per shelter monitor. Seizure pads placed at bedside, pt educated to call staff to get OOB as he is shaky while walking. He reports understanding. Bed placed in lowest, locked position and call light in reach.
--- NOTE | 2016-09-11 20:37 | DRSVH ---
PROCEDURE: US VENOUS LEG DUPLEX BILATERAL INDICATIONS: r/o dvt TECHNIQUE: Real-time imaging, as well as color and pulse Doppler interrogation, were performed of the deep veins of both legs from the inguinal ligament to the popliteal fossa. COMPARISON: None. FINDINGS: The deep veins are normally compressible, and free of intraluminal thrombus. Color and pu lse Doppler demonstrate normal phasic intravascular flow. There is normal augmentation response to d istal compression maneuver. There is a complex fluid collection in the right calf measuring 5.5 x 0.8 x 2.4 cm IMPRESSION: No evidence of deep venous thrombosis bilaterally. Right calf complex fluid collection presumably hematoma although technically nonspecific. Recommend c linical correlation and followup. Dictated by: Gilmer Hernandez M.D. on 09/11/2016 at 20:34 Approved by: Gilmer Hernandez M.D. on 09/11/2016 at 20:35
[2016-09-12] VITALS (8 sets, daily range): BP systolic 143–167; BP diastolic 86–98; PULSE 64–106; RESP 18; O2SAT 95–98
[2016-09-12] MEDS ORDERED: THIA100T64 PO (00:49)
[2016-09-12] MEDS ORDERED: MULT-1073 PO (00:49)
[2016-09-12] MEDS: Heparin 5,000 Unit/mL Inj SUBQ SCH ×3 (01:03→17:12)
[2016-09-12] MEDS: 0.9% Sodium Chloride 1,000 ML IV SCH ×3 (03:23→22:18)
--- NOTE | 2016-09-12 12:00 | NUR ---
CIWA/Nausea: CIWA scores 6 early this am, then at approx 1145 patient experienced sudden onset of nausea and vomited approx 50mls clear liquid. Recheck of CIWA 12. Scored for nausea, PEREZ, tremor, tactile disturbance, anxiety. Administered Valium 5mg and Zofran 8mg for nausea. Will continue to follow. Addendum: 09/12/16 at 1219 by JOCELYN TANG RN CIWA reassessment, 4. Nausea relieved. Patient resting quietly.
--- NOTE | 2016-09-12 15:57 | NUR ---
Social Work: Screening / Multidisciplinary Rounds Data: Pt is a 51 y/o male admitted for ETOH W/D. Pt's PCP is Isabel, pt's insurance is [facility]. EMR reviewed. Readmit score is 4, high. Pt discussed in rounds, states CD order for WATER TECHNICIAN will be placed. Pt is homeless. WATER TECHNICIAN acknowledges MD order for CD assessment, pt screens in for need for initial assessment. WATER TECHNICIAN will complete at a later time. WATER TECHNICIAN will continue to follow. Assessment: Pt with alcohol abuse. Plan: Pt will likely d/c back to community vs Crisis Respite possibility. WATER TECHNICIAN will complete CD and initial assessments at a later time. WATER TECHNICIAN will continue to follow. KIM Clemente
[2016-09-12] MEDS: chlordiazePOXIDE 25 mg Capsule PO SCH (21:12)
[2016-09-13] VITALS (8 sets, daily range): BP systolic 120–153; BP diastolic 80–88; PULSE 62–104; RESP 18–20; O2SAT 96–97
--- NOTE | 2016-09-13 00:08 | PCM.PNMED ---
Subjective Date of Service Sep 12, 2016 Subjective Patient is seen and examined. He has no abdominal pain. Has some calf pain on that right side and ultrasound did not show any DVT. He thinks he may have gotten hurt when he was drunk. He tolerated full liquid diet today. He is still triggering CIWA, it appears he took 10 mg of Valium so far today Exam Vital Signs Vital Sign - Last Date Time Temp Pulse Resp B/P Pulse Ox O2 Delivery O2 Flow Rate FiO2 09/12/16 20:35 37.1 84 18 144/94 96 Room Air 09/12/16 12:47 1.00 Intake and Output 09/11/16 09/11/16 09/12/16 Cumulative From/Thru 15:00 23:00 07:00 09/11/16 10:50 - 09/11/16 17:10 Intake Total 1000 ml 1000 ml Output Total 300 ml 300 ml Balance 700 ml 700 ml IV Total 1000 ml 1000 ml Output Urine Total 300 ml 300 ml Exam General: No acute distress, well-developed, well-nourished, appropriately interactive, non-tremulous HEENT: Normocephalic, atraumatic. External ears without defect. Neck: Supple with full range of motion. No jugular venous distension. Cardiovascular: Regular rhythm without tachycardia with no murmurs, rubs, or gallops appreciated Pulmonary: Clear to auscultation bilaterally with no crackles, wheezes, or rhonchi. Normal respiratory effort with no use of accessory muscles. Abdomen: Bowel tones present. Soft, nontender, nondistended. No hepatosplenomegaly or masses appreciated. Extremities: No clubbing. Right calf quite firm and mildly tender to palpation. Skin: Normal temperature, turgor, and texture; has noticed a mild rash on his abdomen for the last several months. peeling, ring shaped erythematous itchy lesions Neurological: No focal deficits Psychiatric: Alert and oriented to person, place, and time. IVs and Medications Medications Reviewed: Medications were reviewed in detail Lab and Diagnostics Result Diagram: 09/11/16 1120 09/12/16 1640 X-Rays, CTs and MRIs X-RAY CHEST ONE VIEW, PORTABLE IMPRESSION: No acute process Dictated by: Benton Duque M.D. on 09/11/2016 at 11:41 Assessment & Plan Arturo Acosta is a 51 year old man with past medical history significant for multiple previous ER visits and admission for alcohol withdrawal and withdrawal seizures, coronary artery disease with past NSTEMI, diabetes mellitus, hypertension, hyperlipidemia, depression and anxiety presented to [facility] emergency department due to alcohol withdrawal Alcohol withdrawal, present on admission, active - Given banana bag the ED. - Continue daily thiamine supplementation - Initiate patient on CIWA protocol. Seizure precautions. - machine lay out worker consultation -- Converted to Librium tonight, he can be sent home on a taper for Librium Alcoholic hepatitis, present on admission, active -Beney's discriminant function of 9.1. --Hepatitis panel is ordered --Ultrasound of abdomen as his LFT keep climbing up Coronary artery disease, present on admission, stable -We will restart patient's home medications. -Patient did complain of a brief episode of chest pain so will trend troponins. Troponins and ruled out Right calf swelling, present on admission, active - DVT is ruled out for DVT -- K pads - Order CT W contrast or MRI if there is a concern Chronic issues, present on admission: Diabetes mellitus -Diet-controlled -Most recent A1c was 5.8 in 2013. Will check A1c. Hypertension -Restart home medications as above Hyperlipidemia -Restart home medications as above Depression and anxiety -Consider outpatient counseling CODE STATUS: FULL CODE Patient is admitted under inpatient status with expected length of stay greater than 2 midnights due to severity of presenting symptoms, risk of adverse event, and complexity of treatment plan. Pain Evaluation: Adequate Pain Control VTE Prophylaxis: Sub-Q Heparin (Unfractionated) Resuscitation Status: CPR: Attempt Resuscitation Time spent 25 min Ronit Plascencia DO Sep 12, 2016 20:57
[2016-09-13] MEDS: Heparin 5,000 Unit/mL Inj SUBQ SCH ×4 (00:12→23:59)
[2016-09-13 04:11] LABS: Hepatitis A Antibody IgM Negative (Negative); Hepatitis B Core Antibody IgM Negative (Negative)
--- NOTE | 2016-09-13 04:28 | NUR ---
CIWA At 0015, pt had CIWA score of 2 for anxiety mostly. Pt denied any tremor or other stimulation. Pt updated on change in frequency of librium to BID. Pt expressed frustration with this as he said it helps him sleep. During hourly rounding, pt appears to be resting peacefully in bed, does not use call light often. Appears to be sleeping. Continuing to assess.
[2016-09-13 07:02] LABS: Mean Corpuscular Volume 88.7 fL (81-100)
[2016-09-13] MEDS: chlordiazePOXIDE 25 mg Capsule PO SCH ×2 (09:22→22:22)
--- NOTE | 2016-09-13 09:36 | DRSVH ---
PROCEDURE: US ABDOMEN ([id number]) INDICATIONS: elevated LFT, right upper quadrant pain TECHNIQUE: Real-time scanning was performed of the abdominal and retroperitoneal organs, with image documentatio n. COMPARISON: None. FINDINGS: Liver: Liver is normal in size and increased in echogenicity consistent with fatty infiltration. Gallbladder: No gallstones, gallbladder wall thickening, or pericholecystic fluid. Biliary ducts: Intrahepatic bile ducts are non-dilated. Extrahepatic bile duct caliber measures 3 m m. Normal is 6-7 mm or less in diameter, or 10 mm or less post-cholecystectomy. Pancreas: Visualized portions of the pancreas are sonographically normal. Spleen: Spleen is normal in size and homogeneous in echotexture. Kidneys: Right kidney measures 12 cm long; left kidney measures 10.9 cm long. No hydronephrosis. T here is a small exophytic cyst extending from the inferior pole of the right kidney measuring up to 1 .7 cm. There is a slightly convex area in the interpolar region of the right kidney suggestive of a dromedary hump. Aorta: Visualized aorta is normal in caliber at less than 3 cm. Iliacs: Proximal common iliac arteries are normal in caliber at less than 2.5 cm. IVC: Intrahepatic inferior vena cava is patent. Miscellaneous: No free abdominal fluid. IMPRESSION: 1. Increased hepatic echogenicity compatible with steatosis. 2. No evidence of cholelithiasis or cholecystitis. 3. Convex area within the right kidney suggestive of a dromedary hump without a definite mass. Dictated by: Italo Islas M.D. on 09/13/2016 at 9:27 Approved by: Italo Islas M.D. on 09/13/2016 at 9:34
[2016-09-13 17:14] LABS: INR 0.9 ratio
--- NOTE | 2016-09-13 23:59 | PCM.PNMED ---
Subjective Date of Service Sep 13, 2016 Subjective Patient's LFTs continued to trend up AST, ALT shows typical pattern of alcoholic hepatitis, his hepatitis panel is negative. Patient states that he has no pain, wanting to move around more like to be off telemetry monitoring. He states that he wants to quit alcohol such that his liver does not get worse. His tenia cruris ring lesions are still not improving but he only started medication yesterday. No other concerns Exam Vital Signs Vital Sign - Last Date Time Temp Pulse Resp B/P Pulse Ox O2 Delivery O2 Flow Rate FiO2 09/13/16 19:36 37.0 104 20 120/85 97 Room Air 09/12/16 12:47 1.00 Intake and Output 09/12/16 09/12/16 09/13/16 Cumulative From/Thru 15:00 23:00 07:00 09/11/16 10:50 - 09/13/16 05:12 Intake Total 2149 ml 1515 ml 1171 ml 5835 ml Output Total 1875 ml 1200 ml 3375 ml Balance 274 ml 315 ml 1171 ml 2460 ml Intake Oral 750 ml 554 ml 1304 ml IV Total 1399 ml 961 ml 1171 ml 4531 ml Output Urine Total 1875 ml 1200 ml 3375 ml Exam General: No acute distress, well-developed, well-nourished, appropriately interactive, non-tremulous HEENT: Normocephalic, atraumatic. External ears without defect. Neck: Supple with full range of motion. No jugular venous distension. Cardiovascular: Regular rhythm without tachycardia with no murmurs, rubs, or gallops appreciated Pulmonary: Clear to auscultation bilaterally with no crackles, wheezes, or rhonchi. Normal respiratory effort with no use of accessory muscles. Abdomen: Bowel tones present. Soft, nontender, nondistended. No hepatosplenomegaly or masses appreciated. Extremities: No clubbing. Right calf quite firm and mildly tender to palpation. Skin: Normal temperature, turgor, and texture; has noticed a mild rash on his abdomen for the last several months. peeling, ring shaped erythematous itchy lesions Neurological: No focal deficits Psychiatric: Alert and oriented to person, place, and time. IVs and Medications Medications Reviewed: Medications were reviewed in detail Lab and Diagnostics Result Diagram: 09/13/1648 09/13/16647 X-Rays, CTs and MRIs X-RAY CHEST ONE VIEW, PORTABLE IMPRESSION: No acute process Dictated by: Benton Duque M.D. on 09/11/2016 at 11:41 [facility] Diagnostic [place] [id number] Patient Name: DEBBIE ACOSTA MR#: [id number] Location: [facility] [place] Ordering Phys: Ronit Plascencia DO Date of Service: 09/13/16 1532 PROCEDURE: US ABDOMEN ([id number]) INDICATIONS: elevated LFT, right upper quadrant pain TECHNIQUE: Real-time scanning was performed of the abdominal and retroperitoneal organs, with image documentation. COMPARISON: None. FINDINGS: IMPRESSION: 1. Increased hepatic echogenicity compatible with steatosis. 2. No evidence of cholelithiasis or cholecystitis. 3. Convex area within the right kidney suggestive of a dromedary hump without a definite mass. Dictated by: Italo Islas M.D. on 09/13/2016 at 9:27 Approved by: Italo Islas M.D. on 09/13/2016 at 9:34 Assessment & Plan Debbie Acosta is a 51 year old man with past medical history significant for multiple previous ER visits and admission for alcohol withdrawal and withdrawal seizures, coronary artery disease with past NSTEMI, diabetes mellitus, hypertension, hyperlipidemia, depression and anxiety presented to [facility] emergency department due to alcohol withdrawal Alcohol withdrawal, present on admission, improved - Given banana bag the ED. - Continue daily thiamine supplementation - Initiate patient on CIWA protocol. Seizure precautions. - community arts worker consultation -- Converted to Librium tonight, he can be sent home on a taper for Librium Alcoholic hepatitis, present on admission, active -Maddrey's discriminant function of 9.1. --Hepatitis panel is ordered --Ultrasound of abdomen as his LFT keep climbing up --Consulted GI Sridevi uribe, who says that his low platelets R concern for portal vein thrombosis , but he can be safely followed as outpatient. -- Continue sodium restricted diet Coronary artery disease, present on admission, stable -We will restart patient's home medications. -Patient did complain of a brief episode of chest pain so will trend troponins. Troponins and ruled out -- No longer has chest pain Right calf swelling, present on admission, improving - DVT is ruled out for DVT -- K pads - Order CT W contrast or MRI if there is a concern Chronic issues, present on admission: Diabetes mellitus -Diet-controlled -Most recent A1c was 5.8 in 2013. Eventually during admission is 5.4 Hypertension -Restart home medications as above Hyperlipidemia -Restart home medications as above Depression and anxiety -Consider outpatient counseling CODE STATUS: FULL CODE Patient is admitted under inpatient status with expected length of stay greater than 2 midnights due to severity of presenting symptoms, risk of adverse event, and complexity of treatment plan. Pain Evaluation: Adequate Pain Control VTE Prophylaxis: Sub-Q Heparin (Unfractionated) Resuscitation Status: CPR: Attempt Resuscitation Time spent 25 minutes Ronit Plascencia DO Sep 13, 2016 21:28
[2016-09-14 05:38] VITALS: BP 118/76; PULSE 86; RESP 18; O2SAT 97
[2016-09-14] MEDS ORDERED: Clotrimazole TOPICAL (08:40)
[2016-09-14] MEDS: chlordiazePOXIDE 25 mg Capsule PO SCH (09:24)
[2016-09-14] MEDS: Heparin 5,000 Unit/mL Inj SUBQ SCH (09:25)
[2016-09-14 10:53] VITALS: BP 107/80; PULSE 98; RESP 20; O2SAT 96
[2016-09-14] MEDS ORDERED: CHLO25CA10 PO (11:09)
--- NOTE | 2016-09-14 11:15 | PCM.DIMED ---
Discharge Instructions Date of Service Sep 14, 2016 Dates of Hospitalization Sep 11, 2016 at 16:34 Discharge Diagnosis Discharge Diagnosis Alcohol withdrawl, Fattly Liver, Alcoholic Liver Disease, CAD, HTN, DM II Medication Instructions Additional med instructions Take one dose of librium tonight, one more tomorrow night. Maintain a low sodium, heart healthy diet. F/U with Dr. Delgado via your PCP at [facility] Diet Discharge Diet: Low fat, Low Sodium Activity Discharge Activity: No restrictions Call your provider Call your provider for: Fever or Chills, Shortness of breath, Bleeding, Chest pain, Vomitting, Excessive diarrhea, Weakness (unilateral), Other Patient Instructions Follow-up plan F/U with Isabel on 09/16/16. F/U with Dr. Delgado in 2 weeks, your PCP can arrange for the referral F/U CMP in one week to be sent to PCP. Ronit Plascencia DO Sep 14, 2016 11:15
--- NOTE | 2016-09-14 11:31 | NUR ---
Social work note - CD assessment and discharge. Arturo Acosta is a 51 yr old who was admitted for ETOH withdrawal. EMR reviewed: Pt has PW insurance, his PCP is at [facility]. Readmit score is 4. HISTOLOGY ASSISTANT met with pt - introduced D/C planning and explained SW role. Pt is alert and oriented. HISTOLOGY ASSISTANT offered to have CD assessment by [facility] - Pt states that he does not need one - he wants to go to [facility] on Friday for an intake. Hx of Substance use: Pt has been drinking alcohol for many years - states that he was sober for 9 months many years ago. Denies any other drug use. Hx of treatment: Pt states that he has been in [facility] a few months ago - states that he discharged but began drinking again. He was in sober housing but could not remain there. Not currently enrolled in services - states he will enroll on Friday. Pt is not interested in AA - states he does not like groups. Supports: Pt has limited supports. He states that his mother is elderly and his family lives out of the area. Motivation for change: Pt verbalizes that if he keeps drinking, he will - he understands that he has liver disease and he is at risk of seizures. He states that he wants help. He has shared positive motivation in the past to this worker and he admits that he fails to follow through. HISTOLOGY ASSISTANT provided support - encouraged him to choose healthy activities this weekend. Plan: Pt plans to go home with his mother this weekend - will ride his bike to her home. He will follow up on Friday at [facility] for intake. No other needs identified. AVNI Marie
--- NOTE | 2016-09-14 12:27 | NUR ---
Discharge Patient discharge to home at 1155. Explained to patient new medications (Chlordiazepoxide and Clotrimazole), when next medications are due and discharge instructions. Patient verbalized understanding. Dc'd IV intact. Vitals stable. Patient left floor on his own with no signs of distress. This RN failed to give patient his home meds from the pharmacy. [facility] is currently trying to contact patient to correct oversight. Addendum: 09/14/16 at 1341 by WILLA PEREZ RN Patient picked up his home meds from [facility] at 1330.
--- NOTE | 2016-09-14 21:15 | PCM.DC.MED ---
Discharge Summary Date of Service Sep 14, 2016 Dates of Hospitalization Date of Hospital Admission Sep 11, 2016 at 16:34 Date of Discharge: Sep 14, 2016 Providers: Admitting Physician: Ronit Manley DO [facility] Attending Physician: Ronit Manley DO Diagnosis at Time of Discharge Diagnosis at Time of Discharge Alcohol withdrawl, Fattly Liver, Alcoholic Liver Disease, CAD, HTN, DM II Consultations None Procedures XRay, CTs & MRIs X-RAY CHEST ONE VIEW, PORTABLE IMPRESSION: No acute process Dictated by: Benton Duque M.D. on 09/11/2016 at 11:41 [facility] Diagnostic Imaging Department [place], [place] [id number] Patient Name: DEBBIE ACOSTA MR#: [id number] [place] [facility] [place] Ordering Phys: Ronit Manley DO Date of Service: 09/13/16 1532 PROCEDURE: US ABDOMEN ([id number]) INDICATIONS: elevated LFT, right upper quadrant pain TECHNIQUE: Real-time scanning was performed of the abdominal and retroperitoneal organs, with image documentation. COMPARISON: None. FINDINGS: IMPRESSION: 1. Increased hepatic echogenicity compatible with steatosis. 2. No evidence of cholelithiasis or cholecystitis. 3. Convex area within the right kidney suggestive of a dromedary hump without a definite mass. Dictated by: Italo Islas M.D. on 09/13/2016 at 9:27 Approved by: Italo Islas M.D. on 09/13/2016 at 9:34 Brief History Debbie Acosta is a 51 year old man with past medical history significant for multiple previous ER visits and admission for alcohol withdrawal and withdrawal seizures, coronary artery disease with past NSTEMI, diabetes mellitus, hypertension, hyperlipidemia, depression and anxiety presented to [facility] emergency department due to alcohol withdrawal. Patient reports that his last drink was yesterday around 1999. This morning the patient began to experience tremors, vomiting, nausea, sweating, headache and slowed cognition. Patient reported chest pain to the nurse but currently denies any chest pain. He stated that the chest pain was quite different than cardiac chest pain he had when he had has heart attack. Patient has been off of his cardiac meds for about 2 weeks. In the ED his CIWA score of 27. She has received 5 mg of diazepam with improvement of his symptoms. He denies auditory hallucinations or visual hallucinations. He states that his right lower extremity is edematous in his calf has been enlarged and tender for many weeks now. He states that now he feels significantly better than when he first came in and is quite hungry. In the emergency department his vital signs were notable for tachycardia with a heart rate of 106, respiratory rate 26 and elevated blood pressure of 154/105. He was given diazepam and and a banana bag. Hospital Course Debbie Acosta is a 51 year old man with past medical history significant for multiple previous ER visits and admission for alcohol withdrawal and withdrawal seizures, coronary artery disease with past NSTEMI, diabetes mellitus, hypertension, hyperlipidemia, depression and anxiety presented to [facility] emergency department due to alcohol withdrawal Alcohol withdrawal, present on admission, improved - Given banana bag the ED. - Continue daily thiamine supplementation - Initiate patient on CIWA protocol. Seizure precautions. - workers' compensation claims examiner consultation -- Converted to Librium, he can be sent home on a taper for Librium -- The patient is given diuresis of Librium monthly one tomorrow night then stop he can follow-up [facility] after that. He has been on Librium twice a day has not triggered more than greater than 1 score overnight. -- denies tremors, hallucinations, tachycardia, diaphoresis on the day of discharge. Alcoholic hepatitis, present on admission, active -Maddrey's discriminant function of 9.1. --Hepatitis panel is ordered --Ultrasound of abdomen as his LFT keep climbing up --Consulted GI Sridevi uribe, who says that his low platelets R concern for portal vein thrombosis , but he can be safely followed as outpatient. -- Continue sodium restricted diet -- Patient is asked to follow with GI clinic via his PCP in [facility] For alcoholic hepatitis -- He has a slight elevation in lipase since his admission however patient is anxious to be discharged and says that he will follow up outpatient. He has no nausea, no abd pain and tolerating diet. Coronary artery disease, present on admission, stable -We will restart patient's home medications. -Patient did complain of a brief episode of chest pain so will trend troponins. Troponins are ruled out -- No longer has chest pain Right calf swelling, present on admission, improving - DVT is ruled out for DVT -- K pads - Order CT W contrast or MRI if there is a concern Tinea Cruris, poa active -- clotrimazole script is given Chronic issues, present on admission: Diabetes mellitus chronic active -Diet-controlled -Most recent A1c was 5.8 in 2013. Eventually during admission is 5.4 Hypertension chronic active -Restart home medications as above Hyperlipidemia chronic active -Restart home medications as above Depression and anxiety chronic active -Consider outpatient counseling CODE STATUS: FULL CODE Patient is admitted under inpatient status with expected length of stay greater than 2 midnights due to severity of presenting symptoms, risk of adverse event, and complexity of treatment plan. Exam Vital Signs (Last) Date Time Temp Pulse Resp B/P Pulse Ox O2 Delivery O2 Flow Rate FiO2 09/14/16 10:53 36.4 98 20 107/80 96 Room Air 09/12/16 12:47 1.00 Exam General: No acute distress, well-developed, well-nourished, appropriately interactive, non-tremulous HEENT: Normocephalic, atraumatic. External ears without defect. Neck: Supple with full range of motion. No jugular venous distension. Cardiovascular: Regular rhythm without tachycardia with no murmurs, rubs, or gallops appreciated Pulmonary: Clear to auscultation bilaterally with no crackles, wheezes, or rhonchi. Normal respiratory effort with no use of accessory muscles. Abdomen: Bowel tones present. Soft, nontender, nondistended. No hepatosplenomegaly or masses appreciated. Extremities: No clubbing. Right calf improved and non tender to palpation. Skin: Normal temperature, turgor, and texture; has noticed a mild rash on his abdomen for the last several months. peeling, ring shaped erythematous itchy lesions Neurological: No focal deficits Psychiatric: Alert and oriented to person, place, and time. Test 09/11/16 11:20 09/11/16 11:25 09/12/16 07:12 09/13/16 06:48 Neutrophils (%) (Auto) 79.4% (40-74) Lymphocytes (%) (Auto) 10.3% (14-46) Monocytes (%) (Auto) 9.6% (4-12) Eosinophils (%) (Auto) 0% (0-5) Basophils (%) (Auto) 0.5% (0-3) Hemoglobin A1c 5.4% (4.8-5.6) Magnesium Level 1.6mg/dL (1.6-2.6) Alcohols 22mg/dL (0-10) Hold Fishman Top Tube Received (Received) Troponin T 0.010ug/L (0.0-0.011) Hepatitis A IgM Antibody Negative (Negative) Hepatitis B Surface Antigen Negative (Negative) Hepatitis B Core IgM Antibody Negative (Negative) Hepatitis C Antibody 0.1s/co ratio (0.0-0.9) Hepatitis C Comment Comment (.) White Blood Count 3.6th/mm3 (3.8-10.1) Red Blood Count 4.43mil/mm3 (4.40-5.80) Hemoglobin 13.3g/dL (13.8-17.2) Hematocrit 39.3% (41.0-50.0) Mean Corpuscular Volume 88.7fL (81-100) Mean Corpuscular Hemoglobin 30.0pg (27.0-35.0) Mean Corpuscular Hemoglobin Concent 33.8% (32.0-37.0) Red Cell Distribution Width 14.5% (12.3-15.4) Platelet Count 139bil/L (150-400) Test 09/13/16 16:39 09/14/16 04:20 Prothrombin Time 9.6sec (8.1-12.5) Prothromb Time International Ratio 0.90ratio Activated Partial Thromboplast Time 25.7sec (22.8-33.0) Sodium Level 141mEq/L (134-144) Potassium Level 3.6mEq/L (3.5-5.2) Chloride Level 103mEq/L (97-108) Carbon Dioxide Level 21mmol/L (18-29) Blood Urea Nitrogen 17mg/dL (6-24) Creatinine 0.71mg/dL (0.76-1.27) Estimat Glomerular Filtration Rate 124mL/min (>59) Glucose Level 105mg/dL (60-99) Calcium Level 9.4mg/dL (8.5-10.1) Total Bilirubin 1.0mg/dL (0.0-1.2) Aspartate Amino Transf (AST/SGOT) 201U/L (0-50) Alanine Aminotransferase (ALT/SGPT) 112U/L (0-44) Alkaline Phosphatase 95U/L (25-150) Total Protein 6.9g/dL (6.4-8.4) Albumin 4.2g/dL (3.4-5.0) Lipase 80U/L (13-60) Discharge Medications Discharge Medications ([Clotrimazole]) 1 APPLIC/0.25 GM CREAM 1 APPLIC TOPICAL BID Prescribed by: RONIT MANLEY DO Aspirin (Aspirin) 81 Mg Tablet 81 MG PO DAILY (Reported) Carvedilol (Carvedilol) 3.125 Mg Tablet 3.125 MG PO BID (Reported) Chlordiazepoxide (Chlordiazepoxide) 25 Mg Capsule 25 MG PO HS Prescribed by: RONIT MANLEY DO Citalopram (Citalopram) 20 Mg Tablet 20 MG PO DAILY (Reported) Clopidogrel (Clopidogrel) 75 Mg Tablet 75 MG PO DAILY Prescribed by: JOSE CEDEÑO MD Multivits-Min/FA/Lycopene/Lut (Centrum Silver Tablet) 1 Each Tablet 1 EACH PO QAM (Reported) Pravastatin (Pravastatin) 40 Mg Tablet 40 MG PO DAILY (Reported) Thiamine Mononitrate (Vitamin B-1) 100 Mg Tablet 100 MG PO QAM (Reported) Additional med instructions Take one dose of librium tonight, one more tomorrow night. Maintain a low sodium, heart healthy diet. F/U with Dr. Delgado via your PCP at [facility] Followup Plan Follow-up plan F/U with Isabel on 09/16/16. F/U with Dr. Delgado in 2 weeks, your PCP can arrange for the referral F/U CMP in one week to be sent to PCP. Discharge Diet: Low fat, Low Sodium Discharge Activity: No restrictions Time spent 35 minutes Ronit Manley DO Sep 14, 2016 11:15
== END 2016-09-14 11:55 | disposition home or self-care (01) | DRG 897 ==
LOC: SED 10:45 → MPC 16:34
PROVIDERS: ADMIT Family Medicine; ATTEND Family Medicine
DX: F10.239 Alcohol dependence with withdrawal, unspecified (principal); K70.10 Alcoholic hepatitis without ascites; I10 Essential (primary) hypertension; E11.9 Type 2 diabetes mellitus without complications; B35.6 Tinea cruris; I25.10 Atherosclerotic heart disease of native coronary artery without angina pectoris; E78.5 Hyperlipidemia, unspecified; F41.8 Other specified anxiety disorders; I34.0 Nonrheumatic mitral (valve) insufficiency; Y90.1 Blood alcohol level of 20-39 mg/100 ml; I25.2 Old myocardial infarction; Z95.5 Presence of coronary angioplasty implant and graft; Z79.82 Long term (current) use of aspirin

== ENCOUNTER 2016-10-04 08:48 | Inpatient (IN) | payer OTHER ==
[~2016-10-04] VITALS: Ht 167.6 cm; Wt 79.5 kg
[2016-10-04] VITALS (8 sets, daily range): BP systolic 122–157; BP diastolic 80–104; PULSE 87–175; RESP 13–25; O2SAT 93–100
[~2016-10-04 08:48] MED LIST changes: +CHLO25CA10 PO; +Clotrimazole TOPICAL; -LISI-571 PO; -MIRT15TA6 PO; +MULT-1073 PO; +THIA100T64 PO
--- NOTE | 2016-10-04 09:13 | ED.REPORT ---
HPI-Chest Pain 40 and Over Date of Service Oct 04, 2016 ED Provider: Destin Briseno MD History of Present Illness: OCC Pt is a 51 year old male with a history of seizures, PR, cardiac stents (x2), DM , HTN, alcohol abuse and dependence, and multiple prior ED visits related to EtOH abuse who presents to the ED complaining of SOB onset this morning at 06: 00 while he was sleeping. He c/o associated shaking, diaphoresis, vomiting, and subjective fever. He denies chest pain. Pt reports that he has experienced similar symptoms previously. Per pt, his last drink was at 21:00 yesterday. Pt presents to the ED on 09/11/16 requesting detox from alcohol. He was subsequently admitted to [facility] for alcohol withdrawal, but he left AMA. Nursing Notes Stated Complaint: DETOX Chief Complaint: Substance Abuse Nursing Notes Reviewed: Yes (Service Routetech, meds not reconciled - patient indicates non-compliant w/meds) Allergies: Coded Allergies: No Known Allergies (Verified Allergy, Unknown, 02/24/15) Scheduled ([Clotrimazole]) 1 APPLIC/0.25 GM CREAM 1 APPLIC TOPICAL BID Aspirin (Aspirin) 81 Mg Tablet 81 MG PO DAILY Carvedilol (Carvedilol) 3.125 Mg Tablet 3.125 MG PO BID Chlordiazepoxide (Chlordiazepoxide) 25 Mg Capsule 25 MG PO HS Citalopram (Citalopram) 20 Mg Tablet 20 MG PO DAILY Clopidogrel (Clopidogrel) 75 Mg Tablet 75 MG PO DAILY Multivits-Min/FA/Lycopene/Lut (Centrum Silver Tablet) 1 Each Tablet 1 EACH PO QAM Pravastatin (Pravastatin) 40 Mg Tablet 40 MG PO DAILY Thiamine Mononitrate (Vitamin B-1) 100 Mg Tablet 100 MG PO QAM General Time Seen by MD: 08:59 Chief Complaint Shortness of breath Hx Obtained From: Patient Arrived By: Walk-in Sudden in Onset?: Yes (unclear) Onset Occurred: 1 - 4 hours ago (06:00) Symptom Duration: Since onset Severity: Current: No pain currently Severity: Maximum: No pain Recent Healthcare: Recent doctor visit Similar Sx Previous: Yes Past Medical History 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 Patient has been diagnosed with malingering previously Past Medical History Multiple prior visits to the ED relating to EtOH abuse NSTEMI - july 2013 Alcohol abuse and alcohol dependence Anxiety Mitral regurgitation Cervical and lower back pain secondary to trauma Subdural hematoma "Self-reported PE found during an admission for PR" Alcohol related seizures Reports: Coronary artery disease, Diabetes mellitus, Hyperlipidemia, Hypertension Reports: Depression Past Surgical History Coronary stenting to mid left anterior artery and mid Left circumflex artery. Family History Patient denies any family history of heart disease or cancers. Smoking History Never Smoker Social History Patient is not and does not have any children. He denies any history of tobacco use, but admits to smoking marijuana. He also has a history of alcohol abuse. He usually drinks beer. He denies any history of drug abuse. Alcohol Use: >5 per day (last ETOH yesterday) Drug Use: Denies drug use Other Social History: Local resident, Homeless Ambulatory Status Independent Review of Systems Constitutional: Denies: Fever (subjective) Respiratory: Reports: Shortness of breath Cardiovascular: Denies: Chest pain GI: Reports: Vomiting Skin: Reports Diaphoresis Neurologic: Reports: Shaking Complete sys rev & neg: except as marked. Physical Exam Initial Vital Signs Vital Signs (First) Date Time Temp Pulse Resp B/P Pulse Ox O2 Delivery O2 Flow Rate FiO2 10/04/16 08:51 36.2 175 18 122/80 99 10/04/16 09:34 Nasal Cannula 2 Initial VS: Reviewed, Vital signs abnormal (Initial HR 175 in triage by palpation, but on monitor ST @110) Neck: Supple, Full range of motion Extremities: Vascular intact, Neuro intact Skin: Warm, Dry, No cyanosis Psychiatric: Mood/affect normal, Behavior normal General/Constitutional: Awake, Alert Behavior: Positive: Anxious Appears from across the room in severe withdrawal. Able to answer questions appropriately. No smell of alcohol. No signs of trauma. Respiratory / Chest: Atraumatic, Breath sounds NL, Breath sounds = bilat, No rales No visibly dypneic Cardiovascular: Regular rhythm, Heart sounds NL Heart Rate / Rhythm: Positive: Tachycardia (at triage when he first presented, his palpable pulse was thought to be 175. When a monitor was place, it was found to be 110-115.) No JVD. No lower extremity edema. Abdomen: Atraumatic, Soft, Non-tender Skin: Warm Mildly diaphoretic. Neurologic: CN II - XII intact Extremely tremulous. Shaking uncontrollably as a result from what appears to be severe withdrawal. Head / Eyes: Atraumatic, Normocephalic Pupils are normal. Interpretation & Diagnostics Lab Results Interpretation Result Diagram: 10/04/16 0900 10/04/16 0900 Test 10/04/16 09:00 10/04/16 11:29 White Blood Count 5.2th/mm3 (3.8-10.1) Red Blood Count 4.58mil/mm3 (4.40-5.80) Hemoglobin 13.8g/dL (13.8-17.2) Hematocrit 40.0% (41.0-50.0) Mean Corpuscular Volume 87.3fL (81-100) Mean Corpuscular Hemoglobin 30.1pg (27.0-35.0) Mean Corpuscular Hemoglobin Concent 34.5% (32.0-37.0) Red Cell Distribution Width 15.2% (12.3-15.4) Platelet Count 118bil/L (150-400) Neutrophils (%) (Auto) 59.0% (40-74) Lymphocytes (%) (Auto) 30.3% (14-46) Monocytes (%) (Auto) 9.1% (4-12) Eosinophils (%) (Auto) 0.6% (0-5) Basophils (%) (Auto) 0.6% (0-3) Prothrombin Time 9.7sec (8.1-12.5) Prothromb Time International Ratio 0.91ratio Sodium Level 140mEq/L (134-144) Potassium Level 3.6mEq/L (3.5-5.2) Chloride Level 97mEq/L (97-108) Carbon Dioxide Level 18mmol/L (18-29) Blood Urea Nitrogen 10mg/dL (6-24) Creatinine 0.65mg/dL (0.76-1.27) Estimat Glomerular Filtration Rate 137mL/min (>59) Glucose Level 93mg/dL (60-99) Calcium Level 9.0mg/dL (8.5-10.1) Magnesium Level 1.7mg/dL (1.6-2.6) Total Bilirubin 1.9mg/dL (0.0-1.2) Aspartate Amino Transf (AST/SGOT) 175U/L (0-50) Alanine Aminotransferase (ALT/SGPT) 80U/L (0-44) Alkaline Phosphatase 73U/L (25-150) Troponin T 0.010ug/L (0.0-0.011) Total Protein 8.1g/dL (6.4-8.4) Albumin 4.6g/dL (3.4-5.0) Hold Fishman Top Tube Received (Received) Alcohols 102mg/dL (0-10) Hold Urine Received (Received) Lab Results Interpretation: CBC normal CMP mild hepatic dysfunction INR normal EtOH elevated at 102 Troponin normal ECG Interpretation ECG Interpretation: Sinus tachycardia with a rate of 101, No ischemia No interval change compared to 09/11/16 This report was obtained after 10mg of valium Time: 09:31 Interpreted by: ED physician X-Ray Chest Interpretation Chest Xray Interpretation: IMPRESSION: Old left-sided rib fractures again noted, no source of chest pain seen. Dictated by: Aung Gupta M.D. on 10/04/2016 at 10:24 View: Portable, 1 view Interpretation / Wet Read by: Interpret - Radiologist Re-Eval/Medical Decision Med Decision/Clinical Course This is a 51-year-old long-term alcoholic presents complaining of shortness of breath, tremors, withdrawal. Claims his last alcohol was last night at 9. He has had severe withdrawal before. On arrival he is extremely tachycardic, extremely tremulous and brought right back. His initial CIWA scale is 25 and he is so tremulous and is difficult to get a quality initial probate paralegal tracing. His heart rate at triage was thought to be 175, but one placed on a monitor with a quality signal is closer to 110. He is normotensive. He complains since her dyspnea, and does have a complex cardiac history including coronary artery disease and admits these been completely noncompliant with all of his cardiac medications to include aspirin, Plavix, carvedilol, and others. His lungs are clear, he is not hypoxic, has no lower extremity edema or clinical signs of heart failure venous thromboembolism. EKG reveals a sinus rhythm without ischemic changes, chest x-ray is negative for acute disease. Patient received rapid titration of diazepam with marked improvement. Given the severity of his withdrawal, admission is indicated. I have re- started him on his aspiring. Source of Hx: Old records Time of Eval: 09:26 Re-Evaluation/Progress Note: Pt rechecked. Informed pt on plan for admission. Pt understands and agrees with plan for admission. All questions addressed. Time of Eval: 10:00 Re-Evaluation/Progress Note: Pt rechecked. Pt has marked improved and is now actually sleeping. All questions addressed. Consultation : Referral / Consult Name: Sabas Bailey MD Consulted With: Hospitalist Call Returned at: 10:00 Administrative Appeals Tribunal Member: Will see patient, Agrees with eval, Agrees with plan, Accepts admit Differential Diagnosis: Positive: Chest pain, acute, Dysrhythmia, Negative: Acute coronary syndrome, Gun shot wound chest, Pneumomediastinum, Pneumonia, Pneumothorax, Pulmonary edema, Pulmonary embolism, Rib fracture, Stab wound chest Counseled Regarding: Diagnosis, Lab results, Need for admission Discharge & Departure Primary Impression: Alcohol withdrawal Complication of substance-induced condition: with unspecified complication Qualified Code: F10.239 - Alcohol dependence with withdrawal, unspecified Additional Impressions: Alcohol intoxication Complication of substance-induced condition: with unspecified complication Qualified Code: F10.129 - Alcohol abuse with intoxication, unspecified Dyspnea Dyspnea type: unspecified Qualified Code: R06.00 - Dyspnea, unspecified Noncompliance with medication regimen Disposition: ADMITTED TO HOSPITAL Discharge Condition All VS Reviewed: Yes Condition: Stable Referrals: [facility] (PCP) Crit Care Except Billable Proc Time Spent: 30-74 minutes Services Performed: Patient management by me, Time spent at bedside, Reviewing test results, Reviewing imaging, Discussing patient care, Documentation in record Scribe Attestation Portions of this note were transcribed by Daphne Cartagena. I, Dr. Briseno personally performed the history, physical exam and medical decision-making; I reviewed and confirmed the accuracy of the information in the transcribed note. Signed by: Yifan Bowens, 10/04/16. copies to: [facility] Destin Briseno MD Oct 04, 2016 09:13 Daphne Suazo Oct 04, 2016 09:33
[2016-10-04 09:21] LABS: BASOPHILS % (AUTO) 0.6 % (0-3); EOSINOPHILS % (AUTO) 0.6 % (0-5); MONOCYTES % (AUTO) 9.1 % (4-12); Mean Corpuscular Hemoglobin 30.1 pg (27.0-35.0); Mean Corpuscular Volume 87.3 fL (81-100); Platelet Count 118 bil/L (150-400)
[2016-10-04 09:35] LABS: INR 0.91 ratio
[2016-10-04 09:42] LABS: TROPONIN T 0.01 ug/L (0.0-0.011)
[2016-10-04 09:54] LABS: Magnesium 1.7 mg/dL (1.6-2.6)
--- NOTE | 2016-10-04 10:26 | DRSVH ---
PROCEDURE: X-RAY CHEST ONE VIEW, PORTABLE ([id number]) INDICATIONS: CHEST PAIN TECHNIQUE: One view of the chest was acquired. COMPARISON: [facility], CR, XR CHEST 1VW (PORTABLE), 09/11/2016, 11:20. [facility], CR, XR CHEST 1VW (PORTABLE), 03/01/2016, 20:40. FINDINGS: Surgical changes and devices: None. Lungs and pleura: No pleural effusions or pneumothorax. Lungs are clear. Mediastinum: Mediastinal contours appear normal. Heart size is normal. Bones and chest wall: No suspicious bony lesions. Overlying soft tissues appear unremarkable. IMPRESSION: Old left-sided rib fractures again noted, no source of chest pain seen. Dictated by: Aung Gupta M.D. on 10/04/2016 at 10:24 Approved by: Aung Gupta M.D. on 10/04/2016 at 10:24
[2016-10-04] MEDS ORDERED: Thiamine Inj 100 MG, Folic Acid Inj 1 MG, Magnesium Sulfate 50% Inj 2 GM, Multivitamins... IV ONE ×5 (11:15)
[2016-10-04] MEDS ORDERED: Ondansetron 2 mg/mL 2 mL Inj IVPUSH PRN (11:20)
[2016-10-04] MEDS ORDERED: Alum-Mag Hydrox-Simeth 30 mL Suspension PO PRN (11:20)
[2016-10-04] MEDS ORDERED: Non-Formulary Medication (Multivits-Min/FA/Lycopene/Lut (Centrum Silver Tablet) 1 EACH) PO SCH (11:20)
[2016-10-04] MEDS ORDERED: Polyethylene Glycol (PEG) 17 Gm Powder PO PRN (11:20)
--- NOTE | 2016-10-04 13:30 | NUR ---
ED to PCC Pt arrived to PCC from ED at approximately 1328. Report taken from Nicole Zhao ED RN. Pt AO to place, self and family. Pt denies SOB, chest pain or general pain. Care continues.
[2016-10-04 13:35] LABS: APPEARANCE,URINE CLEAR (CLEAR,HAZY); COLOR,URINE YELLOW (YELLOW); OCCULT BLOOD,URINE SMALL (NEGATIVE); PH,URINE 5.5 (5.0-8.0); UROBILINOGEN,URINE NORMAL (NORMAL)
--- NOTE | 2016-10-04 14:10 | NUR ---
ADMIT Patient states "I have not taken any medications for over a month, I am homeless, and tired of it". Patient claims to have attempted suicide by hanging 3-4 months ago. Patient Hx of GI bleed had dark stool shortly after arrival.
--- NOTE | 2016-10-04 15:55 | PCM.HPMED ---
Subjective Date of Service Oct 04, 2016 Primary Provider: Admitting Physician: Sabas Bailey MD Primary Care Physician: [facility] Attending Physician: Sabas Bailey MD Chief Complaint: Acute alcohol withdrawal History of Present Illness: Arturo Acosta is a 51 year old man with a PMH of severe alcoholism with withdrawal seizures, SC with cardiac stents x2, DM2 diet controlled, and HTN who presents to the ED complaining of SOB, agitation, shaking, nausea, vomiting and generalized symptoms of alcohol withdrawal. He reports that he has been drinking heavily for the past several weeks and that his last drink was 21:00 the day prior to presentation. He was recently admitted to this facility on 09/11 for EtOH withdrawal but left AMA. He states that "I've gotten too old for this", and generally feels that his health is rapidly declining and that he no longer wants to be alcohol dependent. He denies chest pain, or diaphoresis. He states that he does have moderate abdominal pain most focused in the epigastric region. He initially denied suicidal ideation, but later admitted to nursing that he had attempted to hang himself recently and was having ongoing thoughts of suicide and the futility of his continued life. In the ED the patient was found to have a CIWA score in the 14-18 range responsive to Valium. Review of Systems: Comprehensive ROS negative except as listed above in the HPI. Allergies Coded Allergies: No Known Allergies (Verified Allergy, Unknown, 02/24/15) Home Medications ([Clotrimazole]) 1 APPLIC/0.25 GM CREAM 1 APPLIC TOPICAL BID Aspirin (Aspirin) 81 Mg Tablet 81 MG PO DAILY Carvedilol (Carvedilol) 3.125 Mg Tablet 3.125 MG PO BID Chlordiazepoxide (Chlordiazepoxide) 25 Mg Capsule 25 MG PO HS Citalopram (Citalopram) 20 Mg Tablet 20 MG PO DAILY Clopidogrel (Clopidogrel) 75 Mg Tablet 75 MG PO DAILY Multivits-Min/FA/Lycopene/Lut (Centrum Silver Tablet) 1 Each Tablet 1 EACH PO QAM Pravastatin (Pravastatin) 40 Mg Tablet 40 MG PO DAILY Thiamine Mononitrate (Vitamin B-1) 100 Mg Tablet 100 MG PO QAM PMH Multiple prior visits to the ED relating to EtOH abuse NSTEMI - july 2013 Alcohol abuse and alcohol dependence Anxiety Mitral regurgitation Cervical and lower back pain secondary to trauma Subdural hematoma "Self-reported PE found during an admission for SC" Alcohol related seizures Reports: Coronary artery disease, Diabetes mellitus, Hyperlipidemia, Hypertension Reports: Depression . Surgical History Coronary stenting to mid left anterior artery and mid Left circumflex artery. . Family History Patient denies any family history of heart disease or cancers. . Social History Hx Alcohol Use: Yes Alcoholic Drinks Per Day: 3-4 bottles of wine Hx Substance Use: No Hx Tobacco Use: No Smoking Status: Never Smoker Exam Vital Signs Vital Sign - Last Date Time Temp Pulse Resp B/P Pulse Ox O2 Delivery O2 Flow Rate FiO2 10/04/16 13:56 90 10/04/16 13:28 36.8 16 157/97 100 Nasal Cannula 2.00 Exam Gen: A/O x3, chronically ill appearing middle aged male in mild acute distress secondary to withdrawal symptoms Neck: Supple, non tender, no thyromegaly, no JVD HEENT: PERRL, no scleral icterus, no conjunctival pallor, mucous membranes dry, EOMI CV: RRR, no murmurs rubs or gallops Resp: Lungs CTA BL, no wheezing rales or rhonchi Abd: mildly distended, moderately tender in epigastric region, no rebound masses or guarding, liver palpable 2cm below costal margin Extr: No clubbing cyanosis or edema Neuro: CN 2-12 grossly intact, no focal neurologic deficit Psych: Patient expressing desire for inpatient rehabilitation, somnolent Lab and Diagnostics Labs Item Value Date Time Red Blood Count 4.58 mil/mm3 10/04/16899 Mean Corpuscular Volume 87.3 fL 10/04/16899 Mean Corpuscular Hemoglobin 30.1 pg 10/04/16899 Mean Corpuscular Hemoglobin Concent 34.5 % 10/04/16899 Red Cell Distribution Width 15.2 % 10/04/16899 Neutrophils (%) (Auto) 59.0 % 10/04/16899 Lymphocytes (%) (Auto) 30.3 % 10/04/16899 Monocytes (%) (Auto) 9.1 % 10/04/16899 Eosinophils (%) (Auto) 0.6 % 10/04/16899 Basophils (%) (Auto) 0.6 % 10/04/16899 Estimat Glomerular Filtration Rate 137 mL/min 10/04/16899 Calcium Level 9.0 mg/dL 10/04/16899 Magnesium Level 1.7 mg/dL 10/04/16899 Total Bilirubin 1.9 mg/dL H 10/04/16899 Aspartate Amino Transf (AST/SGOT) 175 U/L H 10/04/16899 Alanine Aminotransferase (ALT/SGPT) 80 U/L H 10/04/16899 Alkaline Phosphatase 73 U/L 10/04/16899 Troponin T 0.010 ug/L 10/04/16899 Total Protein 8.1 g/dL 10/04/16899 Albumin 4.6 g/dL 10/04/16899 Prothrombin Time 9.7 sec 10/04/16899 Prothromb Time International Ratio 0.91 ratio 10/04/16899 Alcohols 102 mg/dL H 10/04/16899 Result Diagram: 10/04/1689910/04/16899 X-Rays, CTs and MRIs X-RAY CHEST ONE VIEW, PORTABLE IMPRESSION: Old left-sided rib fractures again noted, no source of chest pain seen. Dictated by: Aung Gupat M.D. on 10/04/2016 at 10:24 Approved by: Aung Gupta M.D. on 10/04/2016 at 10:24 . 12-lead ECG Sinus tachycardia with a rate of 101, No ischemia No interval change compared to 09/11/16 This report was obtained after 10mg of valium . Assessment & Plan Arturo Acosta is a 51 year old man with a History of Alcoholism with prior withdrawal seizures, HTN, SC with stenting in 2013 who presents for alcohol detoxification. Acute alcohol withdrawal, POA. Active -CIWA protocol with Valium as needed -GAEL was 316 10/03 prior to departure AMA from the ED -Chemical dependence bundle packer referral -Patient expressing a desire to inpatient rehabilitation upon presentation -Banana bag given in the ED, will consider daily repletion based upon PO intake -Continue Thiamine supplementation History of SC, POA, chronic. Active -Continue home Aspirin and Plavix -Continue home Statin -Continue home Carvedilol Depression, POA, chronic. Active -Continue home Citalopram Suicidal ideation, POA, acute on chronic. Active -Will consider psychiatry consult once patient is through acute withdrawal process. Patient Status: Inpatient, anticipated length of stay >2 midnights due to severity of condition, risk of adverse events, and complexity of treatment plan. Pain Evaluation: Adequate Pain Control GI Prophylaxis: H2 michael Resuscitation Status: CPR: Attempt Resuscitation Attending Statement The patient was seen and examined together with Dr. Morel on 10/04/2016 and I agree with the history, exam and plan as outlined in the note above. . Domo Morel DO Oct 04, 2016 15:55 Sabas Bailey MD Oct 05, 2016 15:51
--- NOTE | 2016-10-04 18:42 | NUR ---
CIWA CIWA scores this shift: 13-8-11, pt given 5mg Valium with score of 13 and 5mg Valium with score of 11. Pt states he is nauseous at 1835 Zofran 4mg given. Care continues.
[2016-10-05] VITALS (7 sets, daily range): BP systolic 129–148; BP diastolic 87–101; PULSE 71–99; RESP 16–20; O2SAT 94–97
[2016-10-05 04:25] LABS: BASOPHILS % (AUTO) 0.7 % (0-3); EOSINOPHILS % (AUTO) 2.1 % (0-5); MONOCYTES % (AUTO) 10.7 % (4-12); Mean Corpuscular Hemoglobin 29.9 pg (27.0-35.0); Mean Corpuscular Volume 87.6 fL (81-100); NEUTROPHILS % (AUTO) 65.8 % (40-74); Platelet Count 111 bil/L (150-400)
[2016-10-05 04:44] LABS: Magnesium 2.2 mg/dL (1.6-2.6); Phosphorus 3.4 mg/dL (2.5-4.9)
--- NOTE | 2016-10-05 05:32 | NUR ---
CIWA Pt CIWA scores this shift have been 8, 4, and 2, at approx. Q4H intervals, respectively. No Valium indicated this shift for CIWA protocol, though patient requested Valium as a sleep aid, stating "It's really hard for me to get to sleep without alcohol." paged, one time order for 5mg IVP of Valium ordered and given. Pt able to rest throughout shift on reassessments. VSS, tele SR 80s, no seizure activity noted this shift.
[2016-10-05] MEDS: Multivit-Miner-Folic Acid-Iron Tablet PO SCH (10:16)
[2016-10-05] MEDS: chlordiazePOXIDE 25 mg Capsule PO SCH ×3 (12:19→23:49)
--- NOTE | 2016-10-05 14:16 | PCM.PNMED ---
Subjective Date of Service Oct 05, 2016 Subjective Arturo Acosta is a 51 year old man with a History of Alcoholism with prior withdrawal seizures, HTN, TN with stenting in 2013 who presents for alcohol detoxification. Hospital day 1. Nursing reports no acute events overnight. 5mg Valium given overnight. Patient seen and examined. Has no complaints at this time. Denies CP, SOB, ABD pain, N/V/D, or headache. Exam Vital Signs Vital Sign - Last Date Time Temp Pulse Resp B/P Pulse Ox O2 Delivery O2 Flow Rate FiO2 10/05/16 11:59 36.8 93 20 142/101 94 Room Air 10/05/16 09:57 1.00 Intake and Output 10/04/16 10/04/16 10/05/16 Cumulative From/Thru 15:00 23:00 07:00 10/04/16 08:51 - 10/05/16 06:28 Intake Total 2249 ml 300 ml 2549 ml Output Total 250 ml 1600 ml 1850 ml Balance -250 ml 649 ml 300 ml 699 ml Intake Oral 1300 ml 300 ml 1600 ml IV Total 949 ml 949 ml Output Urine Total 250 ml 1600 ml 1850 ml # Voids 3 3 Exam Constitutional: awake, alert and oriented x3. No acute distress. Head: normocephalic and atraumatic Eyes: EOMI, [place] conjunctiva Heart: regular rate and rhythm. No peripheral edema. Lungs: clear to auscultation, no wheeze, rales, or rhonchi. ABD: soft, nontender, bowel sounds present throughout Musculoskeletal: moves all four extremities appropriately. Good muscle tone Neuro: CN II-XII intact, no focal deficits. Skin: warm, dry, no rash Psych: Appropriate mood. Flat affect. IVs and Medications Medications Reviewed: Medications were reviewed in detail Lab and Diagnostics Item Value Date Time Red Blood Count 4.51 mil/mm3 10/05/16404 Mean Corpuscular Volume 87.6 fL 10/05/16404 Mean Corpuscular Hemoglobin 29.9 pg 10/05/16404 Mean Corpuscular Hemoglobin Concent 34.2 % 10/05/16404 Red Cell Distribution Width 14.7 % 10/05/16404 Neutrophils (%) (Auto) 65.8 % 10/05/16 040 Lymphocytes (%) (Auto) 20.5 % 10/05/16 040 Monocytes (%) (Auto) 10.7 % 10/05/16 0405 Basophils (%) (Auto) 0.7 % 10/05/16 040 Eosinophils (%) (Auto) 2.1 % 10/05/16 040 Estimat Glomerular Filtration Rate 140 mL/min 10/05/165 Calcium Level 8.6 mg/dL 10/05/16 040 Phosphorus Level 3.4 mg/dL 10/05/16 040 Magnesium Level 2.2 mg/dL 10/05/16 040 Total Bilirubin 2.6 mg/dL H 10/05/16 0405 Aspartate Amino Transf (AST/SGOT) 165 U/L H 10/05/16 0405 Alanine Aminotransferase (ALT/SGPT) 78 U/L H 10/05/16 0405 Alkaline Phosphatase 72 U/L 10/05/16 0405 Albumin 4.1 g/dL 10/05/16 040 Lipase 83 U/L H 10/05/16 0405 Alcohols 102 mg/dL H 10/04/16 0900 Prothrombin Time 9.7 sec 10/04/16 09 Prothromb Time International Ratio 0.91 ratio 10/04/16 0900 Result Diagram: 10/05/16 0405 10/05/16 040 X-Rays, CTs and MRIs X-RAY CHEST ONE VIEW, PORTABLE IMPRESSION: Old left-sided rib fractures again noted, no source of chest pain seen. Dictated by: Aung Gupta M.D. on 10/04/2016 at 10:24 Approved by: Aung Gupta M.D. on 10/04/2016 at 10:24 . 12-lead ECG Sinus tachycardia with a rate of 101, No ischemia No interval change compared to 09/11/16 This report was obtained after 10mg of valium . Assessment & Plan Arturo Acosta is a 51 year old man with a History of Alcoholism with prior withdrawal seizures, HTN, TN with stenting in 2013 who presents for alcohol detoxification. Acute alcohol withdrawal, POA. Active -CIWA protocol with Valium as needed -GAEL was 316 10/03 prior to departure AMA from the ED -Chemical dependence post anesthesia care unit nurse referral -Patient expressing a desire to inpatient rehabilitation upon presentation -Banana bag given in the ED, will consider daily repletion based upon PO intake -Continue Thiamine supplementation - Transition to Librium 50mg PO TID, use Valium PRN if needed. History of TN, POA, chronic. Active -Continue home Aspirin and Plavix -Continue home Statin -Continue home Carvedilol Depression, POA, chronic. Active -Continue home Citalopram Suicidal ideation, POA, acute on chronic. Active -Will consider psychiatry consult once patient is through acute withdrawal process. -manager environmental consult for outpatient assistance and resources for Alcohol dependence recovery programs. Patient Status: Patient improving, but still undergoing alcohol withdrawal. Anticipated date of discharge will likely be in the next 3-4 days. GI Prophylaxis: H2 michael Resuscitation Status: CPR: Attempt Resuscitation Attending Statement The patient was seen and examined together with Dr. Sanchez on 10/05/2016 and I agree with the history, exam and plan as outlined in the note above. . Paulino Sanchez DO Oct 05, 2016 14:16 Sabas Bailey MD Oct 05, 2016 15:53
--- NOTE | 2016-10-05 15:07 | NUR ---
CIWA pt alert and forgetful at start of shift. CIWA at 15 mid-morning. PRN valium given with pt reported effectiveness in decreasing symptoms. pt assisted to BR with FWW/sba. CIWA upon follow up 5. pt started on scheduled librium. will continue to monitor.
[2016-10-06 03:29] LABS: Mean Corpuscular Hemoglobin 30.1 pg (27.0-35.0); Mean Corpuscular Volume 88.7 fL (81-100)
--- NOTE | 2016-10-06 05:25 | NUR ---
Mobility / Potassium / CIWA Pt up and ambulating with FWW in halls with SBA from staff, tolerating well, no shakiness or weakness noted. Able to ambulate safely in room, though SBA d/t risk for seizures during detoxification, and [place] alarm in place due to occasional patient forgetfulness. VSS, no telemetry. This AM, potassium 3.3; paged, order for one-time 40mEq PO given and administered with 0600 Librium. CIWA scores 1-5 this shift. Pt repeatedly verbalized interest in meeting with counselor to arrange outpatient social assistance.
[2016-10-06] MEDS ORDERED: Potassium Chloride Oral 20 mEq SR Tab(K 3 - 3.7 & Creat < 2) PO ONE (05:50)
[2016-10-06] MEDS: chlordiazePOXIDE 25 mg Capsule PO SCH ×4 (06:03→19:54)
[2016-10-06 08:45] VITALS: BP 133/92; PULSE 104; RESP 20; O2SAT 98
[2016-10-06] MEDS: Multivit-Miner-Folic Acid-Iron Tablet PO SCH (08:56)
--- NOTE | 2016-10-06 15:04 | NUR ---
Social Work: Initial Assessment Data: Pt is a 51 y/o male admitted for alcohol withdrawals. [facility], pt's insurance is [employer]. EMR reviewed, readmit score is 4, high. Pt discussed in multidisciplinary rounds. MD states pt likely to remain in hospital for at least 2 more days. CUSTOMER ADVOCATE met with pt at bedside, role explained. Pt states he is homeless and uses no DME, rides his bike and does not drive, has no hx of HH or SNF, no LTC or VA benefits, and is not a caregiver. Pt drinks alcohol and MD ordered CUSTOMER ADVOCATE to conduct CD assessment, see CD assessment for additional information. Likely no further d/c planning needs. CUSTOMER ADVOCATE will continue to follow if needs arise. Assessment: Pt who is independent at baseline, alcohol abuse. Plan: Pt will d/c back to community when medically stable. CD resources accepted, CD assessment complete, see note for further detail. Likely no further d/c planning needs. CUSTOMER ADVOCATE will continue to follow if needs arise. KIM Clemente Addendum: 10/06/16 at 1508 by ANGELES LEI Amended: Links added.
--- NOTE | 2016-10-06 15:09 | NUR ---
Social Work: Chemical Dependency Assessment Current Circumstances: Alcohol withdrawal visit reason. Pt states because he drinks too much. Hx of substance abuse: Pt reports he started drinking at 16 and hasn't really stopped. Hx of treatment: Pt went to [facility] outpt CD treatment, pt states he did not like this and does not want to go back to [facility]. Hx of withdrawal symptoms: Pt has a hx of seizures during withdrawal. Fam Hx: Pt unaware of this. Hx of sobriety: Pt states his only hx of sobriety was while he was in rehab at a SNF for 1 year 8 months. Pt's perception of use: Pt states he doesn't want to drink anymore in one way, but in another way feels like what is the point. He states that he likes drinking and that no one is going to give him a job anyway, so he might as well drink. Suicide risk: Pt reports no SI at this time. Pt has a general depressed state at this time, but states he does not want to kill himself. Recommendations for referral: TAX PROCESSOR gave pt resources for outpt MH and for outp CD counseling. Pt accepted both of these. Pt declined meeting with [facility] in the hospital as he wants nothing to do with [facility] due to not liking his experience with them in 2010. TAX PROCESSOR left phone number on pt's board, encouraged him to call TAX PROCESSOR if he changes his mind regarding [facility]. Pt declined housing resources. KIM Clemente
[2016-10-06 16:11] VITALS: BP 112/84; PULSE 101; RESP 20; O2SAT 97
--- NOTE | 2016-10-06 16:57 | PCM.PNMED ---
Subjective Date of Service Oct 06, 2016 Subjective Arturo Acosta is a 51 year old man with a History of Alcoholism with prior withdrawal seizures, HTN, TX with stenting in 2013 who presents for alcohol detoxification. Today the patient complains of audio visual hallucinations when alone in his room, he states that he sees shadows and hears voices, he cannot make out what they are saying, but does state that they seem threatening. He is aware that they are not real, but is nonetheless understandably distressed by their presence. Patient has been responsive to and patient with CIWA protocol. Overnight no significant events. Comprehensive ROS negative except as listed above. Exam Vital Signs Vital Sign - Last Date Time Temp Pulse Resp B/P Pulse Ox O2 Delivery O2 Flow Rate FiO2 10/06/16 16:11 36.8 101 20 112/84 97 Room Air 10/05/16 09:57 1.00 Intake and Output 10/05/16 10/05/16 10/06/16 Cumulative From/Thru 15:00 23:00 07:00 10/04/16 08:51 - 10/06/16 06:57 Intake Total 1100 ml 300 ml 3949 ml Output Total 450 ml 2300 ml Balance 1100 ml -150 ml 1649 ml Intake Oral 1100 ml 300 ml 3000 ml IV Total 949 ml Output Urine Total 450 ml 2300 ml # Voids 5 3 11 # Bowel Movements 2 2 Exam Gen: A/O x3 pleasant agitated man in mild acute distress secondary to withdrawal symptoms. Neck: Supple, non tender, Full ROM HEENT: PERRL, EOMI, no scleral icterus, no conjunctival pallor CV: RRR, no murmurs rubs or gallops Resp: Lungs CTA BL, no wheezing rales or rhonchi Abd: Soft, mildly tender in epigastric region, no rebound masses or guarding Extr: No clubbing cyanosis or edema Neuro: CN 2-12 grossly intact, no focal neurologic deficit Psych: Patient appears agitated and fearful, very soft voice, continues to express desire for comprehensive lifestyle change IVs and Medications Medications Reviewed: Medications were reviewed in detail Lab and Diagnostics Item Value Date Time Red Blood Count 4.62 mil/mm3 10/06/16314 Mean Corpuscular Volume 88.7 fL 10/06/16314 Mean Corpuscular Hemoglobin 30.1 pg 10/06/16314 Mean Corpuscular Hemoglobin Concent 33.9 % 10/06/16314 Red Cell Distribution Width 14.6 % 10/06/16314 Estimat Glomerular Filtration Rate 122 mL/min 10/06/16314 Calcium Level 9.2 mg/dL 10/06/16314 Total Bilirubin 2.0 mg/dL H 10/06/16314 Aspartate Amino Transf (AST/SGOT) 215 U/L H 10/06/16314 Alkaline Phosphatase 79 U/L 10/06/16314 Alanine Aminotransferase (ALT/SGPT) 96 U/L H 10/06/16314 Total Protein 7.2 g/dL 10/06/16314 Albumin 4.0 g/dL 10/06/16314 Result Diagram: 10/06/1631410/06/16314 X-Rays, CTs and MRIs X-RAY CHEST ONE VIEW, PORTABLE IMPRESSION: Old left-sided rib fractures again noted, no source of chest pain seen. Dictated by: Aung Gupta M.D. on 10/04/2016 at 10:24 Approved by: Aung Gupta M.D. on 10/04/2016 at 10:24 . 12-lead ECG Sinus tachycardia with a rate of 101, No ischemia No interval change compared to 09/11/16 This report was obtained after 10mg of valium . Assessment & Plan Arturo Acosta is a 51 year old man with a History of Alcoholism with prior withdrawal seizures, HTN, TX with stenting in 2013 who presents for alcohol detoxification. Acute alcohol withdrawal, POA. 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 History of TX, POA, chronic. Active -Continue home Aspirin and Plavix -Continue home Statin -Continue home Carvedilol Depression, POA, chronic. Active -Continue home Citalopram Suicidal ideation, POA, acute on chronic. Active -Will consider psychiatry consult once patient is through acute withdrawal process. -manager cafe consult for outpatient assistance and resources for Alcohol dependence recovery programs. Patient Status: Patient improving, but still undergoing alcohol withdrawal. Anticipated date of discharge will likely be in the next 2-3 days. Pain Evaluation: Adequate Pain Control GI Prophylaxis: H2 michael Resuscitation Status: CPR: Attempt Resuscitation Attending Statement The patient was seen and examined together with Dr. Morel on 10/06/2016 and I agree with the history, exam and plan as outlined in the note above. . Domo Morel DO Oct 06, 2016 16:57 Sabas Bailey MD Oct 07, 2016 07:39
[2016-10-06 19:43] VITALS: BP 126/86; PULSE 92; RESP 20; O2SAT 97
[2016-10-06 23:07] VITALS: BP 139/88; PULSE 80; RESP 18; O2SAT 95
--- NOTE | 2016-10-07 03:05 | NUR ---
CIWA Pt had CIWA score of 5 at start of shift, 5mg Valium given with good results. CIWA of 0 for remainder of shift. VSS, no pain, indep. in room, no other issues noted.
[2016-10-07 03:41] LABS: BASOPHILS % (AUTO) 0.4 % (0-3); EOSINOPHILS % (AUTO) 1.7 % (0-5); MONOCYTES % (AUTO) 12.8 % (4-12); Mean Corpuscular Hemoglobin 29.7 pg (27.0-35.0); Mean Corpuscular Volume 89 fL (81-100); NEUTROPHILS % (AUTO) 56.5 % (40-74); Platelet Count 120 bil/L (150-400)
[2016-10-07 04:06] LABS: Phosphorus 5.1 mg/dL (2.5-4.9)
[2016-10-07] MEDS: chlordiazePOXIDE 25 mg Capsule PO SCH (06:01)
[2016-10-07 09:26] VITALS: BP 123/91; PULSE 100; RESP 20; O2SAT 98
[2016-10-07] MEDS: Multivit-Miner-Folic Acid-Iron Tablet PO SCH (09:33)
--- NOTE | 2016-10-07 10:53 | PCM.DIMED ---
Paulino Sanchez DO 10/07/16 1053: Discharge Instructions Date of Service Oct 07, 2016 Dates of Hospitalization Oct 04, 2016 at 12:04 Discharge Diagnosis Discharge Diagnosis Acute alcohol withdrawal History of IA Depression Suicidal ideation without intention Diet Discharge Diet: Heart Healthy Activity Discharge Activity: No restrictions Call your provider Call your provider for: Fever or Chills, Shortness of breath, Bleeding, Chest pain, Vomitting, Excessive diarrhea, Weakness (unilateral) Patient Instructions Patient Instructions Please follow up with [facility] for management of your alcohol dependence. Please see your primary care provider in one week to follow up from this hospital visit. Follow-up Provider[facility] Follow-up with PCP in: 1 week Provider: [facility] Follow-up in: 2 weeks Akanksha Banuelos DO 10/07/16 1326: Discharge Instructions Attending's Statement The patient was seen and examined together with Dr. Sanchez on 10/07/16 and I agree with the history, exam and plan as outlined in the note above. Paulino Sanchez DO Oct 07, 2016 10:53 Akanksha Banuelos DO Oct 07, 2016 13:26
[2016-10-07] MEDS ORDERED: PRAV40TA PO (10:58)
[2016-10-07] MEDS ORDERED: CITA20TA11 PO (10:58)
[2016-10-07] MEDS ORDERED: CLOP75TA28 PO (10:58)
[2016-10-07] MEDS ORDERED: CHLO25CA10 PO (10:59)
[2016-10-07] MEDS ORDERED: CARV3.122 PO (10:59)
--- NOTE | 2016-10-07 11:04 | NUR ---
Mental Health Assessment 10/07/2016 Current Situation: Pt on day 3 for ETOH Withdrawal. Pt has a history of Suicidal ideation with a reported attempt (hanging) 3 months ago. Pt is currently homeless in [place] and has declined CDP assessment for treatment. Pt is cleared medically and a case management referral has been placed to assess pts mental health status. Current MH Status: This FINAL DRESSING CUTTER met with the patient at bedside. Pt is a/o times 4. The pt is cooperative with assessment, with clear speech of normal rate, volume and frequency. Pt with good eye contact, appropriate dress and hygiene for Hospitalization. Pt describes feeling very hopeful but also realistic about his current situation of being homeless. Pt denies current suicidal and homicidal ideation. Pt does confirm that he had attempted to hang himself and was at [facility] 3 months ago and states that he was feeling over all of it referencing being homeless. The pt denies auditory or visual hallucinations. Pts thought processes are clear, linear and goal oriented. MH History: Pt has a history of suicidal ideation with a previous attempt (see above). Pt reports no family history. Pt states that he feels "depressed" often but does not have a regular outpatient provider. Pt was provided with a list of outpatient MH Providers. The patient states that he intends to follow up with [facility] for an outpatient MH appointment and to coordinate housing resources. Pt declined to have FINAL DRESSING CUTTER arrange for an appointment for him and voices that he is "very capable of doing things on my own when I am sober." CD History: Pt reports drinking daily except for periods of time when he was in [facility] treatment and SNF for rehab. (See CD assessment from 10/06/16). Natural Supports: Pt identifies his mother as a support but states that he cannot go to stay with her anymore. Disposition: After meeting with the patient, the pt is not a candidate for inpatient psychiatric hospitalization. The pt denies any current suicidal, homicidal ideation and is not gravely disabled due to mental illness. Pt declined a CDP assessment from [facility] and intends to follow up with [facility] today to get connected with outpatient counseling. The patient is also following up with [facility] regarding his food stamps. The patient understands that he will be homeless until the foreseeable future when housing resources can be utilized. He is eager to leave so that he can get to [facility] to start support outpatient services. KIM has informed MD of this information. KIM Umanzor
--- NOTE | 2016-10-07 12:07 | NUR ---
Discharge pt ordered for discharge to self/community. pt aware and agreeable. prescriptions given to patient with followup appointments scheduled and communicated to patient. discharge instructions and medications reviewed with patient. home meds from pharmacy given to patient. pt with steady gait escorted to main elevators with all belongings at about 1155.
--- NOTE | 2016-10-07 19:14 | PCM.DC.MED ---
Discharge Summary Date of Service Oct 07, 2016 Dates of Hospitalization Date of Hospital Admission Oct 04, 2016 at 12:04 Date of Discharge: Oct 07, 2016 Providers: Admitting Physician: Sabas Bailey MD Primary Care Physician: [facility] Attending Physician: Akanksha Banuelos DO Diagnosis at Time of Discharge Diagnosis at Time of Discharge Acute alcohol withdrawal History of MT Depression Suicidal ideation without intention Procedures XRay, CTs & MRIs X-RAY CHEST ONE VIEW, PORTABLE IMPRESSION: Old left-sided rib fractures again noted, no source of chest pain seen. Dictated by: Aung Gupta M.D. on 10/04/2016 at 10:24 Approved by: Aung Gupta M.D. on 10/04/2016 at 10:24 . ECG 12 Lead Sinus tachycardia with a rate of 101, No ischemia No interval change compared to 09/11/16 This report was obtained after 10mg of valium . Brief History Arturo Acosta is a 51 year old man with a PMH of severe alcoholism with withdrawal seizures, MT with cardiac stents x2, DM2 diet controlled, and HTN who presents to the ED complaining of SOB, agitation, shaking, nausea, vomiting and generalized symptoms of alcohol withdrawal. He reports that he has been drinking heavily for the past several weeks and that his last drink was 21:00 the day prior to presentation. He was recently admitted to this facility on 09/11 for EtOH withdrawal but left AMA. He states that "I've gotten too old for this", and generally feels that his health is rapidly declining and that he no longer wants to be alcohol dependent. He denies chest pain, or diaphoresis. He states that he does have moderate abdominal pain most focused in the epigastric region. He initially denied suicidal ideation, but later admitted to nursing that he had attempted to hang himself recently and was having ongoing thoughts of suicide and the futility of his continued life. Hospital Course Arturo Acosta is a 51 year old man with a History of Alcoholism with prior withdrawal seizures, HTN, MT with stenting in 2013 who presents for alcohol detoxification. Patient received PO Libruim 50mg TID with vast improvement of withdrawal symptoms. Patient did not experience any withdrawal seizures. He had reported to have seen shadows, and hear voices during his stay, but denied currently having any hallucinations the following day. 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 Patient denies any Suicidal Ideations or Homicidal Ideations at the time of discharge. Acute alcohol withdrawal -Monitored CIWA protocol with Valium as needed - referred for Chemical dependence online merchant -Banana bag given in the ED -Continued Thiamine supplementation -Transitioned to Librium 50mg PO TID, use Valium PRN if needed. History of MT -Continued home Aspirin and Plavix -Continued home Statin -Continued home Carvedilol Depression -Continued home Citalopram Suicidal ideation -Assessed patient, denies any SI or HI Exam Vital Signs (Last) Date Time Temp Pulse Resp B/P Pulse Ox O2 Delivery O2 Flow Rate FiO2 10/07/16 09:26 36.6 100 20 123/91 98 Room Air 10/05/16 09:57 1.00 Exam Gen: Alert and oriented x3. No acute distress. Head: normocephalic and atraumatic Eyes: No scleral icterus, EOMI, Pupils equal round and reactive to light Heart: regular rate and rhythm. No peripheral edema Lungs: Clear to auscultation, no wheeze, rales, or rhonchi Abd: Soft, mildly tender in epigastric region, no rebound masses or guarding Musculoskeletal: Moves all four extremities appropriately Neuro: CN 2-12 grossly intact, no focal neurologic deficit Psych: Appropriate mood and affect. Denies SI and denies HI. Test 10/04/16 09:00 10/04/16 11:29 10/05/16 04:05 10/07/16 03:25 Prothrombin Time 9.7sec (8.1-12.5) Prothromb Time International Ratio 0.91ratio Troponin T 0.010ug/L (0.0-0.011) Hold [place] Top Tube Received (Received) Alcohols 102mg/dL (0-10) Urine Color Yellow (YELLOW) Urine Appearance Clear (CLEAR,HAZY) Urine pH 5.5 (5.0-8.0) Urine Specific [place] 1.025 (1.003-1.035) Urine Protein Tracemg/dL (NEG,TRACE) Urine Glucose (UA) Negativemg/dL (NEGATIVE) Urine Ketones 40mg/dL (NEGATIVE) Urine Occult Blood Small (NEGATIVE) Urine Nitrite Negative (NEGATIVE) Urine Bilirubin Negative (NEGATIVE) Urine Urobilinogen Normalmg/dL (NORMAL) Urine Leukocyte Esterase Negative (NEGATIVE) Urine RBC 0-2/hpf (0-2) Urine WBC 0-5/hpf (0-5) Urine Epithelial Cells Occasional/hpf (NONE-MOD) Urine Crystals None seen (NONE SEEN) Urine Bacteria None/hpf (NONE-FEW) Urine Hyaline Casts None/lpf (NONE) Urine Granular Casts Occasional (NONE SEEN) Urine Waxy Casts None seen (NONE SEEN) Urine Red Blood Cell Casts None seen (NONE SEEN) Urine White Blood Cell Casts None seen (NONE SEEN) Urine Mucus Present (None Seen) Urine Trichomonas None seen (NONE SEEN) Urine Yeast None (NONE SEEN) Urinalysis Comment None Urine Culture Reflexed Not indicated Hold Urine Received (Received) Lipase 83U/L (13-60) White Blood Count 5.3th/mm3 (3.8-10.1) Red Blood Count 4.61mil/mm3 (4.40-5.80) Hemoglobin 13.7g/dL (13.8-17.2) Hematocrit 41.1% (41.0-50.0) Mean Corpuscular Volume 89fL (81-100) Mean Corpuscular Hemoglobin 29.7pg (27.0-35.0) Mean Corpuscular Hemoglobin Concent 33.3% (32.0-37.0) Red Cell Distribution Width 14.6% (12.3-15.4) Platelet Count 120bil/L (150-400) Neutrophils (%) (Auto) 56.5% (40-74) Lymphocytes (%) (Auto) 28.2% (14-46) Monocytes (%) (Auto) 12.8% (4-12) Eosinophils (%) (Auto) 1.7% (0-5) Basophils (%) (Auto) 0.4% (0-3) Sodium Level 140mEq/L (134-144) Potassium Level 3.6mEq/L (3.5-5.2) Chloride Level 101mEq/L (97-108) Carbon Dioxide Level 20mmol/L (18-29) Blood Urea Nitrogen 19mg/dL (6-24) Creatinine 0.83mg/dL (0.76-1.27) Estimat Glomerular Filtration Rate 103mL/min (>59) Glucose Level 110mg/dL (60-99) Calcium Level 9.4mg/dL (8.5-10.1) Phosphorus Level 5.1mg/dL (2.5-4.9) Magnesium Level 2.0mg/dL (1.6-2.6) Total Bilirubin 1.7mg/dL (0.0-1.2) Aspartate Amino Transf (AST/SGOT) 159U/L (0-50) Alanine Aminotransferase (ALT/SGPT) 99U/L (0-44) Alkaline Phosphatase 74U/L (25-150) Total Protein 7.0g/dL (6.4-8.4) Albumin 4.4g/dL (3.4-5.0) Discharge Medications Discharge Medications ([Clotrimazole]) 1 APPLIC/0.25 GM CREAM 1 APPLIC TOPICAL BID Prescribed by: NATE MANLEY DO Aspirin (Aspirin) 81 Mg Tablet 81 MG PO DAILY (Reported) Carvedilol (Carvedilol) 3.125 Mg Tablet 3.125 MG PO BID Prescribed by: Mehrdad HIDALGO Chlordiazepoxide (Chlordiazepoxide) 25 Mg Capsule 25 MG PO HS Prescribed by: Mehrdad HIDALGO Citalopram (Citalopram) 20 Mg Tablet 20 MG PO DAILY Prescribed by: Mehrdad HIDALGO Clopidogrel (Clopidogrel) 75 Mg Tablet 75 MG PO DAILY Prescribed by: Mehrdad HIDALGO Multivits-Min/FA/Lycopene/Lut (Centrum Silver Tablet) 1 Each Tablet 1 EACH PO QAM (Reported) Pravastatin (Pravastatin) 40 Mg Tablet 40 MG PO DAILY Prescribed by: Mehrdad HIDALGO Thiamine Mononitrate (Vitamin B-1) 100 Mg Tablet 100 MG PO QAM (Reported) Followup Plan Disposition: Home Discharge Diet: Heart Healthy Discharge Activity: No restrictions Patient Instructions Please follow up with [facility] for management of your alcohol dependence. Please see your primary care provider in one week to follow up from this hospital visit. Follow-up Provider: [facility] Follow-up with PCP in: 1 week Provider: [facility] Follow-up in: 2 weeks Time spent Greater than 35 minutes Attending Statement The patient was seen and examined together with Dr. Sanchez on 10/08/16 and I have added additional information to the note above. copies to: [facility]; [facility] Paulino Sanchez DO Oct 07, 2016 19:14 Akanksha Banuelos DO Oct 08, 2016 18:00
== END 2016-10-07 12:00 | disposition home or self-care (01) | DRG 897 ==
LOC: SED 08:48 → OBSVTOIN 12:04 → PCC 12:04
PROVIDERS: ADMIT Internal Medicine; ATTEND Neuromusculoskeletal Medicine & OMM
DX: F10.220 Alcohol dependence with intoxication, uncomplicated (principal); F10.239 Alcohol dependence with withdrawal, unspecified; R45.851 Suicidal ideations; R44.0 Auditory hallucinations; Y90.5 Blood alcohol level of 100-119 mg/100 ml; R44.1 Visual hallucinations; I34.0 Nonrheumatic mitral (valve) insufficiency; I10 Essential (primary) hypertension; E11.9 Type 2 diabetes mellitus without complications; Z79.82 Long term (current) use of aspirin; Z91.5 Personal history of self-harm; I25.2 Old myocardial infarction; Z91.14 Patient's other noncompliance with medication regimen; Z95.5 Presence of coronary angioplasty implant and graft

== ENCOUNTER 2016-10-15 00:51 | Emergency (ER) | payer OTHER ==
[2016-10-15] VITALS (7 sets, daily range): BP systolic 136–172; BP diastolic 79–97; PULSE 46–118; RESP 15–24; O2SAT 94–99
--- NOTE | 2016-10-15 01:14 | ED.REPORT ---
HPI-General Illness Date of Service Oct 15, 2016 ED Provider: Renato Molina MD A 51 year old male with a history of CAD, hypertension, hyperlipidemia, anxiety , depression, suicidal ideation, methamphetamine abuse, alcohol abuse and withdrawal seizures presents to the ED complaining of suicidal ideation. The pt has been consuming hard liquor today, though he does not specify how much. He expresses suicidal intent in the ED, stating "if I had a gun, I'd use it." The pt has been admitted twice since 09/11/2016 for alcohol withdrawal. History is limited by pt condition. Nursing Notes Stated Complaint: DETOX,SUICIDAL Chief Complaint: Substance Abuse Nursing Notes Reviewed: Yes Allergies: Coded Allergies: No Known Allergies (Verified Allergy, Unknown, 02/24/15) Scheduled ([Clotrimazole]) 1 APPLIC/0.25 GM CREAM 1 APPLIC TOPICAL BID Aspirin (Aspirin) 81 Mg Tablet 81 MG PO DAILY Carvedilol (Carvedilol) 3.125 Mg Tablet 3.125 MG PO BID Chlordiazepoxide (Chlordiazepoxide) 25 Mg Capsule 25 MG PO HS Citalopram (Citalopram) 20 Mg Tablet 20 MG PO DAILY Clopidogrel (Clopidogrel) 75 Mg Tablet 75 MG PO DAILY Multivits-Min/FA/Lycopene/Lut (Centrum Silver Tablet) 1 Each Tablet 1 EACH PO QAM Pravastatin (Pravastatin) 40 Mg Tablet 40 MG PO DAILY Thiamine Mononitrate (Vitamin B-1) 100 Mg Tablet 100 MG PO QAM General Time Seen by MD: 01:14 Chief Complaint Other (Suicidal ideation) Hx Obtained From: Patient Arrived By: Walk-in Sudden in Onset?: No Symptom Duration: Since onset Recent Healthcare: Recent doctor visit, Recent hospitalization Similar Sx Previous: Yes Past Medical History 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 Patient has been diagnosed with malingering previously Past Medical History Multiple prior visits to the ED relating to EtOH abuse NSTEMI - july 2013 Alcohol abuse and alcohol dependence Anxiety Mitral regurgitation Cervical and lower back pain secondary to trauma Subdural hematoma "Self-reported PE found during an admission for [place]" Alcohol related seizures Reports: Coronary artery disease, Diabetes mellitus, Hyperlipidemia, Hypertension Reports: Depression Past Surgical History Coronary stenting to mid left anterior artery and mid Left circumflex artery. Family History Patient denies any family history of heart disease or cancers. Smoking History Never Smoker Social History Patient is not and does not have any children. He denies any history of tobacco use, but admits to smoking marijuana. He also has a history of alcohol abuse. He usually drinks beer. He denies any history of drug abuse. Alcohol Use: >5 per day Drug Use: THC Other Social History: Local resident, Homeless Ambulatory Status Independent Review of Systems Unable to Obtain ROS Intoxicated Physical Exam Vital Signs Vital Signs Date Time Temp Pulse Resp B/P Pulse Ox O2 Delivery O2 Flow Rate FiO2 10/15/16 06:34 89 15 140/79 94 Nasal Cannula 1 10/15/16 00:54 36.6 107 18 136/95 95 Room Air Initial VS: Reviewed General/Constitutional: Awake, Alert grossly intoxicated slow, slurred speech smells of alcohol Head / Eyes: Atraumatic, Normocephalic, PERRL, EOMI ENT: Atraumatic, Airway patent, Mucous membranes moist Neck: Atraumatic, Supple, Full range of motion Respiratory / Chest: Breath sounds NL, Breath sounds = bilat, No respiratory distress chest tender to palpation Cardiovascular: Heart rate NL, Regular rhythm, Heart sounds NL Abdomen: Atraumatic, Soft diffuse abdominal tenderness Back: Atraumatic, Full range of motion Upper Extremities Upper Extremity / MS: Atraumatic, Full range of motion Lower Extremity / Pelvis / MS: Atraumatic, Full range of motion 2+ edema bilaterally Skin: Warm, Dry chronic erythema Neurologic: Oriented X3, Speech NL, No motor deficits, No sensory deficits Psychiatric: Affect NL, Mood NL Interpretation & Diagnostics Lab Results Interpretation Result Diagram: 10/15/16 0247 10/15/16 0247 Test 10/15/16 02:47 10/15/16 05:29 White Blood Count 5.0th/mm3 (3.8-10.1) Red Blood Count 3.75mil/mm3 (4.40-5.80) Hemoglobin 11.5g/dL (13.8-17.2) Hematocrit 34.3% (41.0-50.0) Mean Corpuscular Volume 91.5fL (81-100) Mean Corpuscular Hemoglobin 30.7pg (27.0-35.0) Mean Corpuscular Hemoglobin Concent 33.5% (32.0-37.0) Red Cell Distribution Width 15.4% (12.3-15.4) Platelet Count 218bil/L (150-400) Neutrophils (%) (Auto) 63.1% (40-74) Lymphocytes (%) (Auto) 22.4% (14-46) Monocytes (%) (Auto) 12.7% (4-12) Eosinophils (%) (Auto) 1.0% (0-5) Basophils (%) (Auto) 0.6% (0-3) Prothrombin Time 9.4sec (8.1-12.5) Prothromb Time International Ratio 0.88ratio Activated Partial Thromboplast Time 26.3sec (22.8-33.0) Sodium Level 142mEq/L (134-144) Potassium Level 3.5mEq/L (3.5-5.2) Chloride Level 103mEq/L (97-108) Carbon Dioxide Level 20mmol/L (18-29) Blood Urea Nitrogen 16mg/dL (6-24) Creatinine 0.79mg/dL (0.76-1.27) Estimat Glomerular Filtration Rate 109mL/min (>59) Glucose Level 109mg/dL (60-99) Calcium Level 8.6mg/dL (8.5-10.1) Magnesium Level 1.7mg/dL (1.6-2.6) Total Bilirubin 0.5mg/dL (0.0-1.2) Aspartate Amino Transf (AST/SGOT) 62U/L (0-50) Alanine Aminotransferase (ALT/SGPT) 52U/L (0-44) Alkaline Phosphatase 59U/L (25-150) Troponin T 0.010ug/L (0.0-0.011) Pro-B-Type Natriuretic Peptide 24pg/mL (0-121) Total Protein 6.8g/dL (6.4-8.4) Albumin 4.0g/dL (3.4-5.0) Alcohols 219mg/dL (0-10) Hold Urine Received (Received) ECG Interpretation ECG Interpretation: normal sinus rhythm with a rate of 93 abnormal R-wave progression, early transition LVH, no strain no acute ischemic changes Time: 02:27 Interpreted by: ED physician X-Ray Chest Interpretation Chest Xray Interpretation: multiple old rib fractures poor inspiration Interpretation / Wet Read by: Wet read ED physician Re-Eval/Medical Decision Med Decision/Clinical Course 51-year-old presents intoxicated on alcohol and with methamphetamine on board, complaining of suicidal ideation. He is observed overnight to metabolize his intoxicants and will be reevaluated in the morning. Signed out at [address] Sahni Source of Hx: Old records Counseled Regarding: Diagnosis, Lab results Discharge & Departure Shift Change Sign-Out Patient Care Transferred: Yes Discussed Complaint(s): Yes Laboratory Evaluation: Lab evaluation discussed Imaging Studies: Imaging discussed Primary Impression: Alcohol intoxication Complication of substance-induced condition: uncomplicated Qualified Code: F10.120 - Alcohol abuse with intoxication, uncomplicated Additional Impressions: Alcoholism Suicidal ideation Methamphetamine abuse Discharge Condition All VS Reviewed: Yes Condition: Stable [facility] Care Transferred to: Dr. Sahni Care Transferred at: 06:00 Scribe Attestation Portions of this note were transcribed by Gavin Red. I, Dr. Molina personally performed the history, physical exam and medical decision-making; I reviewed and confirmed the accuracy of the information in the transcribed note. copies to: [facility] Renato Molina MD Oct 15, 2016 01:14 GAVIN RED Oct 15, 2016 01:54
[2016-10-15] MEDS ORDERED: 0.9% Sodium Chloride 1,000 ML IV ONE (01:51)
[2016-10-15] MEDS ORDERED: Pantoprazole 40 mg ER24 Tablet PO ONE (01:55)
[2016-10-15 02:57] LABS: BASOPHILS % (AUTO) 0.6 % (0-3); MONOCYTES % (AUTO) 12.7 % (4-12); Mean Corpuscular Hemoglobin 30.7 pg (27.0-35.0); Mean Corpuscular Volume 91.5 fL (81-100); NEUTROPHILS % (AUTO) 63.1 % (40-74); Platelet Count 218 bil/L (150-400)
[2016-10-15 03:18] LABS: INR 0.88 ratio
[2016-10-15 03:33] LABS: TROPONIN T 0.01 ug/L (0.0-0.011)
[2016-10-15 03:38] LABS: Magnesium 1.7 mg/dL (1.6-2.6)
[2016-10-15] MEDS ORDERED: Thiamine Inj 100 MG, Folic Acid Inj 1 MG, Magnesium Sulfate 50% Inj 2 GM, Multivitamins... IV ONE ×5 (07:20)
[2016-10-15] MEDS ORDERED: Ondansetron 2 mg/mL 2 mL Inj IVPUSH PRN (07:20)
[2016-10-15] MEDS ORDERED: Thiamine Inj 100 MG in 0.9% Sodium Chloride 50 ML IV ONE (07:20)
--- NOTE | 2016-10-15 07:39 | DRSVH ---
PROCEDURE: X-RAY CHEST ONE VIEW, PORTABLE ([id number]) INDICATIONS: chest pain TECHNIQUE: One view of the chest was acquired. COMPARISON: [facility], CR, XR CHEST 1VW (PORTABLE), 10/04/2016, 9:17. FINDINGS: Surgical changes and devices: None. Lungs and pleura: No pleural effusions or pneumothorax. Lungs are clear. Shallow inspiration Mediastinum: Mediastinal contours appear normal. Heart size is normal. Bones and chest wall: No suspicious bony lesions. Overlying soft tissues appear unremarkable. Old left rib fractures. IMPRESSION: No radiographic evidence of acute cardiopulmonary pathology. Dictated by: Geovany Mcclure M.D. on 10/15/2016 at 7:38 Approved by: Geovnay Mcclure M.D. on 10/15/2016 at 7:38
--- NOTE | 2016-10-15 10:12 | NUR ---
KIM ED Note D/A: Arturo Acosta is a 51 year old male who presented to the ED intoxicated with suicidal thoughts and a plan to kill himself using a gun if he had one. Pt states "If I had a gun I would use it." Pt was able to sleep through the night last night and is now sober. and KIM met with pt at bedside, pt is still endorsing suicidal ideation with a plan. Pt is agreeable to go to [facility] for both detox and crisis stabilization. Intake completed, clinicals faxed and [facility] requested UNCLAIMED PROPERTY OFFICER call back in one hour. updated. UNCLAIMED PROPERTY OFFICER to continue to follow. P: Pt remains suicidal with a plan and will be going into withdrawal today as pt last drink was last night. Pt agreeable to go to [facility] for detox and crisis stabilization. [facility] reviewing pt at this time. KIM to call back in one hour. KIM Quiroga Addendum: 10/15/16 at 1108 by SEAN ORTEGA SS UNCLAIMED PROPERTY OFFICER attempted to call [facility] for an update on review of clinicals and intake for pt. Per [facility] staff, the RN who reviews clinicals and oversees acceptances is currently in another intake and will not be available for another 20 minutes. KIM to call back at 1130. KIM Quiroga
[2016-10-15] MEDS ORDERED: LORazepam 2 mg Tablet PO ONE (14:50)
[2016-10-15] MEDS ORDERED: LORazepam 2 mg Tablet PO PRN (14:50)
[2016-10-15] MEDS ORDERED: _LORazepam 2 MG Tablet PO SCH (14:55)
== END 2016-10-15 19:02 ==
LOC: SED 00:51
DX: F10.120 Alcohol abuse with intoxication, uncomplicated (principal); R45.851 Suicidal ideations; F15.10 Other stimulant abuse, uncomplicated; I25.10 Atherosclerotic heart disease of native coronary artery without angina pectoris; I10 Essential (primary) hypertension; E78.5 Hyperlipidemia, unspecified; F41.9 Anxiety disorder, unspecified; F32.9 Major depressive disorder, single episode, unspecified; Z79.82 Long term (current) use of aspirin; Z59.0 Homelessness
CPT/HCPCS: 36415; 71010; 80053; 81025; 82075; 83735; 83880; 84484; 85025; 85610; 85730; 93005; 96361; 96372; 96374; 96375; 99285; G0480; J1885; J2060; J2405; J3475; J7030

== ENCOUNTER 2016-10-28 00:20 | Inpatient (IN) | payer OTHER ==
[~2016-10-28] VITALS: Ht 167.6 cm; Wt 80.7 kg
[2016-10-28] VITALS (13 sets, daily range): BP systolic 108–158; BP diastolic 77–92; PULSE 73–103; RESP 13–21; O2SAT 92–98
--- NOTE | 2016-10-28 00:27 | ED.REPORT ---
HPI-Chest Pain 40 and Over Date of Service Oct 28, 2016 ED Provider: Renato Molina M.D. Pt is a 51 year old male with a history of CAD, type II DM, HTN, [place] with cardiac stents x2, methamphetamine abuse, suicidal ideation, hyperlipidemia, and EtOH abuse with withdrawal seizures who presents to the ED complaining of chest pain onset 2 hours prior to arrival. The pt presented to the ED on 10/15/16 complaining of suicidal ideation while intoxicated and he was referred to [facility]. The pt has been admitted twice since 09/11/2016 for alcohol withdrawal. HPI difficult to obtain secondary to pt's condition. Nursing Notes Stated Complaint: CHEST PAIN Chief Complaint: Chest Pain Nursing Notes Reviewed: Yes Allergies: Coded Allergies: No Known Allergies (Verified Allergy, Unknown, 10/28/16) Scheduled ([Clotrimazole]) 1 APPLIC/0.25 GM CREAM 1 APPLIC TOPICAL BID Aspirin (Aspirin) 81 Mg Tablet 81 MG PO DAILY Carvedilol (Carvedilol) 3.125 Mg Tablet 3.125 MG PO BID Chlordiazepoxide (Chlordiazepoxide) 25 Mg Capsule 25 MG PO HS Citalopram (Citalopram) 20 Mg Tablet 20 MG PO DAILY Clopidogrel (Clopidogrel) 75 Mg Tablet 75 MG PO DAILY Multivits-Min/FA/Lycopene/Lut (Centrum Silver Tablet) 1 Each Tablet 1 EACH PO QAM Pravastatin (Pravastatin) 40 Mg Tablet 40 MG PO DAILY Thiamine Mononitrate (Vitamin B-1) 100 Mg Tablet 100 MG PO QAM General Time Seen by MD: 00:26 Chief Complaint Chest pain Hx Obtained From: Patient Arrived By: Walk-in Sudden in Onset?: No Onset Occurred: 1 - 4 hours ago (2hours) Symptom Duration: Since onset Location: : Substernal Quality: Painful Radiation: : Does not radiate Severity: Current: Moderate Severity: Maximum: Moderate Recent Healthcare: Recent doctor visit Similar Sx Previous: Yes Past Medical History Past Medical History Notes: [employer]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 Jasso PCP down in [place] Last admit 06/12/16 or ETOH intox->withdrawal->left AMA Frequent ED visits due to suicidal ideations, alcohol abuse, and homelessness. Patient has been diagnosed with malingering previously Past Medical History Multiple prior visits to the ED relating to EtOH abuse NSTEMI - july 2013 Alcohol abuse and alcohol dependence Anxiety Mitral regurgitation Cervical and lower back pain secondary to trauma Subdural hematoma "Self-reported PE found during an admission for [place]" Alcohol related seizures Reports: Coronary artery disease, Diabetes mellitus, Hyperlipidemia, Hypertension Reports: Depression Past Surgical History Coronary stenting to mid left anterior artery and mid Left circumflex artery. Family History Patient denies any family history of heart disease or cancers. Smoking History Never Smoker Social History Patient is not and does not have any children. He denies any history of tobacco use, but admits to smoking marijuana. He also has a history of alcohol abuse. He usually drinks beer. He denies any history of drug abuse. Alcohol Use: >5 per day Drug Use: THC Other Social History: Local resident, Homeless Ambulatory Status Independent Review of Systems Unable to Obtain ROS Patient condition Physical Exam Initial Vital Signs Vital Signs (First) Date Time Temp Pulse Resp B/P Pulse Ox O2 Delivery O2 Flow Rate FiO2 10/28/16 00:28 36.8 80 17 132/86 97 Room Air Initial VS: Reviewed Head / Eyes: Atraumatic, Normocephalic Neck: Supple, Full range of motion Extremities: Vascular intact, Neuro intact Skin: Warm, Dry, No cyanosis General/Constitutional: Awake, Alert Respiratory / Chest: Atraumatic, Breath sounds NL, Breath sounds = bilat Cardiovascular: Heart rate NL, Regular rhythm, Heart sounds NL Abdomen: Atraumatic, Soft Tenderness/Guarding/Rebound: Positive: Tender epigastric Neurologic: CN II - XII intact Grossly intoxicated Head / Eyes: Atraumatic, Normocephalic He has nystagmus Interpretation & Diagnostics CT PULMONARY ANGIOGRAM: IMPRESSION: Right lower lobe segmental and subsegmental pulmonary emboli. Transmitted to the ED at 03:44 by Tanner Rodarte M.D. Lab Results Interpretation Result Diagram: 10/28/16 0132 10/28/16 0132 Test 10/28/16 01:32 10/28/16 02:30 White Blood Count 4.4th/mm3 (3.8-10.1) Red Blood Count 4.42mil/mm3 (4.40-5.80) Hemoglobin 13.2g/dL (13.8-17.2) Hematocrit 39.8% (41.0-50.0) Mean Corpuscular Volume 90fL (81-100) Mean Corpuscular Hemoglobin 29.9pg (27.0-35.0) Mean Corpuscular Hemoglobin Concent 33.2% (32.0-37.0) Red Cell Distribution Width 14.7% (12.3-15.4) Platelet Count 212bil/L (150-400) Neutrophils (%) (Auto) 45.3% (40-74) Lymphocytes (%) (Auto) 39.4% (14-46) Monocytes (%) (Auto) 12.3% (4-12) Eosinophils (%) (Auto) 1.6% (0-5) Basophils (%) (Auto) 1.4% (0-3) Erythrocyte Sedimentation Rate 16mm/hr (0-30) Prothrombin Time 9.8sec (8.1-12.5) Prothromb Time International Ratio 0.92ratio Activated Partial Thromboplast Time 26.6sec (22.8-33.0) D-Dimer 5.43mg/L FEU (<0.50) Sodium Level 142mEq/L (134-144) Potassium Level 3.8mEq/L (3.5-5.2) Chloride Level 103mEq/L (97-108) Carbon Dioxide Level 20mmol/L (18-29) Blood Urea Nitrogen 11mg/dL (6-24) Creatinine 0.79mg/dL (0.76-1.27) Estimat Glomerular Filtration Rate 109mL/min (>59) Glucose Level 111mg/dL (60-99) Calcium Level 8.7mg/dL (8.5-10.1) Magnesium Level 2.1mg/dL (1.6-2.6) Total Bilirubin 0.8mg/dL (0.0-1.2) Aspartate Amino Transf (AST/SGOT) 104U/L (0-50) Alanine Aminotransferase (ALT/SGPT) 47U/L (0-44) Alkaline Phosphatase 74U/L (25-150) Troponin T 0.010ug/L (0.0-0.011) Pro-B-Type Natriuretic Peptide 33pg/mL (0-121) Total Protein 7.6g/dL (6.4-8.4) Albumin 4.4g/dL (3.4-5.0) Lipase 86U/L (13-60) Alcohols 423mg/dL (0-10) Urine Opiates Screen Negative Urine Methadone Screen Negative Urine Barbiturates Screen Negative Urine Amphetamines Screen Negative Urine Benzodiazepines Screen Negative Urine Cocaine Metabolite Screen Negative Urine Cannabinoids Screen Negative ECG Interpretation ECG Interpretation: Sinus rhythm with a rate of 75 ST elevation, probably normal Early repol pattern Time: 00:38 Interpreted by: ED physician X-Ray Chest Interpretation Chest Xray Interpretation: Very poor inspiration Old rib fractures Nothing acute View: Portable, 1 view Interpretation / Wet Read by: Wet read ED physician Re-Eval/Medical Decision Med Decision/Clinical Course 49 old level, but complaining of chest pain and shortness of breath. D-dimer was elevated at eight, and indeed he has a pulmonary embolus. Admitted now for further evaluation and management on heparin. Anticipate withdrawal as his been his history in the past. History of withdrawal seizures in the past as noted. [facility] protocol. Source of Hx: Old records Time of Eval: 04:07 Re-Evaluation/Progress Note: Pt rechecked. Informed pt of plan for admission. Pt understands and agrees with plan for admission. All questions addressed. Consultation : Referral / Consult Name: Richard Zafar MD Call Returned at: 04:03 Long Term Care Phlebotomist: Will see patient, Agrees with eval, Agrees with plan, Accepts admit Counseled Regarding: Diagnosis, Lab results, Need for admission Discharge & Departure Primary Impression: Acute pulmonary embolus Additional Impressions: Chest pain Alcohol intoxication Alcohol dependence Disposition: ADMITTED TO HOSPITAL Discharge Condition All VS Reviewed: Yes Condition: Stable Referrals: [facility] (PCP) Laibgutierrez Attestation Portions of this note were transcribed by Daphne Cartagena. I, Dr. Molina personally performed the history, physical exam and medical decision-making; I reviewed and confirmed the accuracy of the information in the transcribed note. Signed by: Yifan Bowens, 10/27/16. copies to: [facility] Renato Molina MD Oct 28, 2016 00:26 Daphne Suazo Oct 28, 2016 00:38
[2016-10-28] MEDS ORDERED: Pantoprazole 40 mg ER24 Tablet PO ONE (00:40)
[2016-10-28 01:37] LABS: BASOPHILS % (AUTO) 1.4 % (0-3); EOSINOPHILS % (AUTO) 1.6 % (0-5); MONOCYTES % (AUTO) 12.3 % (4-12); Mean Corpuscular Hemoglobin 29.9 pg (27.0-35.0); Mean Corpuscular Volume 90 fL (81-100); NEUTROPHILS % (AUTO) 45.3 % (40-74); Platelet Count 212 bil/L (150-400)
[2016-10-28 02:02] LABS: TROPONIN T 0.01 ug/L (0.0-0.011)
[2016-10-28 02:20] LABS: Magnesium 2.1 mg/dL (1.6-2.6)
[2016-10-28 02:22] LABS: INR 0.92 ratio
[2016-10-28 02:23] LABS: D-Dimer 5.43 mg/L FEU (<0.50)
[2016-10-28] MEDS ORDERED: Heparin 25K Unit/500mL 0.45 NS 25,000 UNIT in IV Premix 1 EACH IV SCH (04:05)
[2016-10-28] MEDS ORDERED: Ondansetron 2 mg/mL 2 mL Inj IVPUSH PRN (04:05)
[2016-10-28] MEDS ORDERED: Alum-Mag Hydrox-Simeth 30 mL Suspension PO PRN (04:05)
[2016-10-28] MEDS ORDERED: Polyethylene Glycol (PEG) 17 Gm Powder PO PRN (04:05)
--- NOTE | 2016-10-28 04:14 | PCM.HPMED ---
Subjective Date of Service Oct 28, 2016 Primary Provider: Admitting Physician: [facility] Attending Physician: Admit Status: From the Emergency Department, Full Admit, [facility] Telemetry Chief Complaint: Chest pain History of Present Illness: Arturo Acosta is a 51 year old male with Coronary artery disease, Diabetes type 2 , Hypertension, methamphetamine abuse, suicidal ideation, hyperlipidemia, and EtOH abuse with withdrawal seizures who presents to [facility] emergency department complaining of chest pain. Patient has been having shortness of breath on and off for several weeks but getting worst. She has diffusely pleuritic chest pain as well, denies any coughing or hemoptysis. He is mobile and denies any limited mobility. No airplane or long car trips. He denies any prior history of thrombotic disease or family history as well. He reports that he has been drinking heavily for the past several weeks and that his last drink was earlier in the night. Case discussed with Dr Molina. Ct was obtained due to a elevate D dimer and found to have Pulmonary embolism. Heparin started Review of Systems: Pertinent positives as noted in HPI. All other systems were reviewed and are negative Allergies Coded Allergies: No Known Allergies (Verified Allergy, Unknown, 10/28/16) Home Medications From recent Discharge Summary ([Clotrimazole]) 1 APPLIC/0.25 GM CREAM 1 APPLIC TOPICAL BID Prescribed by: NATE MANLEY DO Aspirin (Aspirin) 81 Mg Tablet 81 MG PO DAILY (Reported) Carvedilol (Carvedilol) 3.125 Mg Tablet 3.125 MG PO BID Prescribed by: Mehrdad HIDALGO Chlordiazepoxide (Chlordiazepoxide) 25 Mg Capsule 25 MG PO HS Prescribed by: Mehrdad HIDALGO Citalopram (Citalopram) 20 Mg Tablet 20 MG PO DAILY Prescribed by: Mehrdad HIDALGO Clopidogrel (Clopidogrel) 75 Mg Tablet 75 MG PO DAILY Prescribed by: Mehrdad HIDALGO Multivits-Min/FA/Lycopene/Lut (Centrum Silver Tablet) 1 Each Tablet 1 EACH PO QAM (Reported) Pravastatin (Pravastatin) 40 Mg Tablet 40 MG PO DAILY Prescribed by: Mehrdad HIDALGO Thiamine Mononitrate (Vitamin B-1) 100 Mg Tablet 100 MG PO QAM (Reported) PMH Multiple prior visits to the ED relating to EtOH abuse NSTEMI - july 2013 Alcohol abuse and alcohol dependence Anxiety Mitral regurgitation Cervical and lower back pain secondary to trauma Subdural hematoma "Self-reported PE found during an admission for HI" Alcohol related seizures Reports: Coronary artery disease, Diabetes mellitus, Hyperlipidemia, Hypertension Reports: Depression . Surgical History Coronary stenting to mid left anterior artery and mid Left circumflex artery. Family History Patient denies any family history of heart disease or cancers. Social History Hx Alcohol Use: Yes Hx Substance Use: No Hx Tobacco Use: No Smoking Status: Never Smoker Exam Vital Signs Vital Sign - Last Date Time Temp Pulse Resp B/P Pulse Ox O2 Delivery O2 Flow Rate FiO2 10/28/16 02:26 83 19 135/78 98 Room Air 10/28/16 00:28 36.8 Exam General: Alert, Oriented X3, Cooperative, No acute Distress Eyes: PERRLA, Scleral Anicteric Mouth: Mouth Normal, Mucous Membranes Moist/[place] Neck: Supple, no Thyromegaly, trachea central. Chest & Lungs: Clear to auscultation & percussion, No adventitious breath sounds, no crackles, no wheeze Cardiovascular: Normal S1, Normal S2, No Murmurs/Rubs/Gallops, Regular Rate/ Rhythm, Murmur, Other (No JVD, no peripheral edema) Pulses: Radial (present and equal), Dorsalis Pedi (present and equal) Abdomen: Soft, Non-tender, Non-distended, Normoactive bowel tones. Musculoskeletal: Unremarkable. Normal range of motion, no swollen or erythematous joints Extremities: No edema, no cyanosis, no clubbing. Skin: No rashes. Warm and dry, no erythematous areas Neurological: Grossly neurologically intact, has generalized weakness, Normal Speech, Sensation Intact Lymphatic: Lymph nodes Cervical and Axillary not palpable. Lab and Diagnostics Labs Laboratory Tests Test 10/28/16 01:32 10/28/16 02:30 White Blood Count 4.4th/mm3 (3.8-10.1) Red Blood Count 4.42mil/mm3 (4.40-5.80) Hemoglobin 13.2g/dL (13.8-17.2) Hematocrit 39.8% (41.0-50.0) Mean Corpuscular Volume 90fL (81-100) Mean Corpuscular Hemoglobin 29.9pg (27.0-35.0) Mean Corpuscular Hemoglobin Concent 33.2% (32.0-37.0) Red Cell Distribution Width 14.7% (12.3-15.4) Platelet Count 212bil/L (150-400) Neutrophils (%) (Auto) 45.3% (40-74) Lymphocytes (%) (Auto) 39.4% (14-46) Monocytes (%) (Auto) 12.3% (4-12) Eosinophils (%) (Auto) 1.6% (0-5) Basophils (%) (Auto) 1.4% (0-3) Prothrombin Time 9.8sec (8.1-12.5) Prothromb Time International Ratio 0.92ratio Activated Partial Thromboplast Time 26.6sec (22.8-33.0) D-Dimer 5.43mg/L FEU (<0.50) Sodium Level 142mEq/L (134-144) Potassium Level 3.8mEq/L (3.5-5.2) Chloride Level 103mEq/L (97-108) Carbon Dioxide Level 20mmol/L (18-29) Blood Urea Nitrogen 11mg/dL (6-24) Creatinine 0.79mg/dL (0.76-1.27) Estimat Glomerular Filtration Rate 109mL/min (>59) Glucose Level 111mg/dL (60-99) Calcium Level 8.7mg/dL (8.5-10.1) Magnesium Level 2.1mg/dL (1.6-2.6) Total Bilirubin 0.8mg/dL (0.0-1.2) Aspartate Amino Transf (AST/SGOT) 104U/L (0-50) Alanine Aminotransferase (ALT/SGPT) 47U/L (0-44) Alkaline Phosphatase 74U/L (25-150) Troponin T 0.010ug/L (0.0-0.011) Pro-B-Type Natriuretic Peptide 33pg/mL (0-121) Total Protein 7.6g/dL (6.4-8.4) Albumin 4.4g/dL (3.4-5.0) Lipase 86U/L (13-60) Alcohols 423mg/dL (0-10) Urine Opiates Screen Negative Urine Methadone Screen Negative Urine Barbiturates Screen Negative Urine Amphetamines Screen Negative Urine Benzodiazepines Screen Negative Urine Cocaine Metabolite Screen Negative Urine Cannabinoids Screen Negative Result Diagram: 10/28/16 0132 10/28/16 0132 Assessment & Plan Arturo Acosta is a 51 year old male with Coronary artery disease, Diabetes type 2 , Hypertension, methamphetamine abuse, suicidal ideation, hyperlipidemia, and Alcohol abuse with withdrawal seizures who presents to [facility] emergency department complaining of chest pain 1. Acute shortness of breathe secondary to Pulmonary embolism. Present on admission Etiology is unclear but no clear provoking factors. Will perform ultrasound of the legs. Consideration for malignancy - Hypercoagulable workup initiated, sent prior to anticoagulations - Heparin drip continued - complete echo to assess right heart strain 2 Acute alcohol withdrawal, Active. 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 Presumed stable - continue Aspirin and Plavix, Statin and Carvedilol 4 Depression, chronic. - continue Citalopram 5 Diabetes type, chronic - not on any medications - low correction Lispro algorithm - Acetaminophen as needed for mild pain/fever/headache - Bowel regimen as needed - Antiemetic as needed Patient admitted under inpatient status with expected length of stay > 2 midnights for severity of present symptoms, complexities of treatment plan and risk for adverse event . Resuscitation Status: CPR: Attempt Resuscitation Richard Zafar MD Oct 28, 2016 04:14 Richard Zafar MD Oct 28, 2016 04:14
[2016-10-28] MEDS ORDERED: Heparin Protocol Boluses IVPUSH PRN (04:15)
[2016-10-28] MEDS ORDERED: Heparin 5,000 Unit/mL Inj IVPUSH ONE (04:20)
[2016-10-28] MEDS ORDERED: Thiamine Inj 100 MG, Folic Acid Inj 1 MG, Magnesium Sulfate 50% Inj 2 GM, Multivitamins... IV ONE ×5 (04:30)
[2016-10-28] MEDS ORDERED: Glucose 40% Oral Gel 15 Gm Tube PO PRN (04:35)
[2016-10-28] MEDS ORDERED: Dextrose 10% 250 ML IV PRN (04:40)
--- NOTE | 2016-10-28 05:58 | NUR ---
Admit Patient admitted to 2024 at approximately 0500, able to slide self from ER gurney to floor bed. Patient has Heparin gtt infusing, currently at 18 un/kg/hr, per ER report he was given bolus dose as well. Banana bag started when patient arrived to floor. Patient oriented to room, call light, and fall precautions. [place] alarm on bed. Friend at bedside. Patient unable to provide current medication list. Per friend "he doesn't take them anyway". Plan of care discussed with the patient. CIWA minimal, patient disoriented to date but denies n/v, PEREZ, or hallucinations. Calm in bed at this time.
[2016-10-28] MEDS: Insulin LISPRO 300 Unit/3 mL Inj SUBQ SCH ×4 (08:00→22:00)
--- NOTE | 2016-10-28 08:21 | DRSVH ---
PROCEDURE: X-RAY CHEST ONE VIEW, PORTABLE ([id number]) INDICATIONS: p TECHNIQUE: One view of the chest was acquired. COMPARISON: 10/15/2016 FINDINGS: Surgical changes and devices: None. Lungs and pleura: No pleural effusions or pneumothorax. Lungs are clear. Mediastinum: Mediastinal contours appear normal. Heart size is normal. Bones and chest wall: No suspicious bony lesions. Old left-sided rib fracture deformities. Overlying soft tissues appear unremarkable. IMPRESSION: Suboptimal inspiration as before. No acute cardiopulmonary abnormality. Dictated by: Gabo Murry M.D. on 10/28/2016 at 8:18 Approved by: Gabo Murry M.D. on 10/28/2016 at 8:19
--- NOTE | 2016-10-28 09:02 | DRSVH ---
PROCEDURE: US VEINOUS LEG DUPLEX UNILATERAL, BILATERAL INDICATIONS: rule out dvt pe on ct in er TECHNIQUE: Real-time imaging, as well as color and pulse Doppler interrogation, were performed of the lower extr emity deep veins from the inguinal ligament to the popliteal fossa. COMPARISON: None. FINDINGS: The deep veins are normally compressible, and free of intraluminal thrombus. Color and pu lse Doppler demonstrate normal phasic intraluminal flow. There is normal augmentation response to di stal compression maneuver. IMPRESSION: No DVT in lower extremities bilaterally. Dictated by: Jose Traylor M.D. on 10/28/2016 at 9:00 Approved by: Jose Traylor M.D. on 10/28/2016 at 9:01
--- NOTE | 2016-10-28 09:20 | DRSVH ---
PROCEDURE: CT ANGIO CHEST PULMONARY EMBOLISM ([id number]) INDICATIONS: cp elevated dimer TECHNIQUE: After the administration of intravenous contrast, 2 mm thick sections acquired from the pulmonary api rei to the posterior costophrenic angles. 3-dimensional maximum intensity projection (MIP) coronal a nd sagittal reformats were then acquired through the thorax. For radiation dose reduction, the follo wing was used: automated exposure control, adjustment of mA and/or kV according to patient size. COMPARISON: [facility], CR, XR CHEST 1VW (PORTABLE), 10/28/2016, 0:39[facility]PE, 08/15/2013, 19:59. FINDINGS: Image quality: Excellent. Pulmonary arteries: There are intraluminal filling defects in the right lower lobe posterior and late ral basal segmental artery consistent with pulmonary emboli. Lungs and pleura: The pacer dependent atelectasis. Lungs are otherwise clear. No pleural effusions or pneumothorax. Central and peripheral airways are patent. Mediastinum: Heart size is normal, without pericardial effusion. No mediastinal or hilar adenopathy . Thoracic aorta is normal in caliber and enhancement. Esophagus is normal in caliber. There is mil d concentric thickening in the distal esophagus. No hiatal hernia. Bones and chest wall: No suspicious bony lesions. Ribs and thoracic spine appear intact throughout. Thyroid gland is normal. No axillary or supraclavicular adenopathy. Abdomen: There is hepatic steatosis. Visualized upper abdominal solid organs appear normal in the ea rly arterial phase of enhancement. IMPRESSION: 1. Pulmonary emboli in the right lower lobe posterior and lateral basal segmental arteries. 2. Mild concentric thickening in the distal esophagus. This finding may be secondary to chronic gastr oesophageal reflux. Clinical correlation suggested. 3. Hepatic steatosis. Dictated by: Jose Traylor M.D. on 10/28/2016 at 9:13 Approved by: Jose Traylor M.D. on 10/28/2016 at 9:18
--- NOTE | 2016-10-28 09:38 | NUR ---
Med Rec Defer Med Rec at this moment as pt. is still drunk according to primary nurse, Cecilia Carcamo RN. Significant other in room was unable to share any home med info because "I don't know what he is taking."
[2016-10-28 10:13] LABS: BASOPHILS % (AUTO) 0.8 % (0-3); EOSINOPHILS % (AUTO) 1.1 % (0-5); MONOCYTES % (AUTO) 9.3 % (4-12); Mean Corpuscular Hemoglobin 30.1 pg (27.0-35.0); NEUTROPHILS % (AUTO) 61.1 % (40-74); Platelet Count 202 bil/L (150-400)
[2016-10-28] MEDS: Multivit-Miner-Folic Acid-Iron Tablet PO SCH (10:21)
--- NOTE | 2016-10-28 16:07 | DRSVH ---
[facility] [address] [place] [address] Echocardiogram Report Name: DEBBIE SCHULTZ Study Date: 10/28/2016 Height: 66 in Hospital Exam Location: [facility] Weight: 178 lb Gender: Male BSA: 1.9 m2 : 1965 Age: 51 yrs BP: 130/81 mmHg Reason For Study: SOB, CP History: CAD Ordering Physician: Performed By: Sil Matamoros Interpretation Summary 1) Normal left ventricular size, thickness, wall motion, and systolic function (EF 55-60%). 2) Normal right ventricular size and function. 3) No significant valvular abnormalities. 4) Compared to the Echo done 07/19/2013, no significant change when compared visually. Procedure: A two-dimensional transthoracic echocardiogram with color flow and Doppler was performed. The study quality was technically adequate. Comparison is made with the echocardiogram of 07/19/2013. The patient was in normal sinus rhythm during the exam. Left Ventricle: Left ventricular wall thickness is normal. The left ventricle is normal in size. The ejection fraction is estimated to be 55-60%. Left ventricular systolic function is normal without focal wall motion abnormalities. Assessment of diastolic parameters indicates normal left ventricular diastolic function and normal filling pressures. Right Ventricle: The right ventricle is normal in size and function. Atria: The left atrium is moderately dilated. Right atrial size is normal. There is no Doppler evidence for an interatrial shunt. Mitral Valve: The mitral valve is normal in structure and function. There is mild mitral regurgitation. Aortic Valve: The aortic valve is normal in structure and function. There is no aortic valve stenosis. No aortic regurgitation is present. Tricuspid Valve: The tricuspid valve is normal in structure and function. There is a trace or physiologic amount of tricuspid regurgitation. Pulmonary artery pressures cannot be estimated because of the lack of a measurable TR jet velocity. Pulmonic Valve: The pulmonic valve is not well seen, but is grossly normal. There is a trace or physiologic amount of pulmonic regurgitation. Great Vessels: The aortic root is normal size. The ascending aorta is at the upper limits of normal in size. The IVC has a measurement of 16 mm. Pericardium/ Pleura There is no pericardial effusion. MMode/2D Measurements & Calculations LVIDd: 4.8 cm RA long axis LVOT diam LVIDs: 3.3 cm LA A2 area: 22.3 cm FS: 31.3 % LA A4 area: 17.8 cm RA area AoV Opening EPSS: 0.26 cm LA length (vol): 4.8 cm IVSd: 0.89 cm LA vol: 70.0 ml : 16.4 cm Ao root diam LVPWd: 1.2 cm LA vol index RA vol : 46.0 ml asc Aorta RA Diam: 3.5 cm IVC diam: 1.6 cm : 24.2 mm2 LV jara. diameter/BSA LV sys. diameter/BSA RVD1 (basal) TAPSE: 1.7 cm (cm/m^2): 2.5 (cm/m^2): 1.7 Doppler Measurements & Calculations Ao V2 max MV E max sarwat MV E/A: 1.8 PA V2 max : 130.8 cm/sec : 85.4 cm/sec Med Peak E' Sarwat : 97.3 cm/sec Ao max PG MV A max sarwat PA mean PG : 6.8 mmHg : 47.5 cm/sec E/E' med: 11.7 Ao mean PG MV P1/2t: 52.0 msec Lat Peak E' Sarwat PA Accel Time : 0.12 sec LVOT Max Sarwat E/E' lat: 9.2 : 94.4 cm/sec E/e' average TEJAL(I,D): 3.3 cm sev ratio MV dec time MV P1/2t max sarwat Ao V2 mean LV V1 max PG : 0.18 sec : 83.3 cm/sec Ao V2 VTI: 24.0 cm LV V1 VTI MVA(P1/2t): 4.2 cm2 : 19.3 cm TEJAL(V,D): 3.0 cm2 PA V2 mean TEJAL indexed to BSA : 68.3 cm/sec (cm^2/m^2): 1.8 Reading Physician:04:06 PM
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
--- NOTE | 2016-10-28 17:42 | DRSVH ---
PROCEDURE: US VENOUS ARM DUPLEX UNILATERAL, LEFT INDICATIONS: Pulmonry Emboli TECHNIQUE: Real-time imaging, as well as color and pulse Doppler interrogation, was performed of the left upper extremity deep veins from the inferior neck to the antecubital fossa. COMPARISON: None. FINDINGS: The internal jugular vein, visualized portions of the subclavian vein, axillary, and brach ial veins are free of intraluminal thrombus. Where physically possible, the veins are normally compr essible. Color and pulse Doppler demonstrate normal intraluminal flow, with expected phasicity and p ulsatility. Additional scanning of the cephalic and basilic veins of the superficial system demonstr ate normal compressibility, without thrombus. IMPRESSION: No deep vein thrombosis of the left upper extremity. Dictated by: Britt Ribera M.D. on 10/28/2016 at 17:40 Approved by: Britt Ribera M.D. on 10/28/2016 at 17:40
--- NOTE | 2016-10-28 19:28 | NUR ---
Ciwa/behavior pt started shift slightly drowsy, appeared in good joking spirit. female friend at bedside. pt at times making inappropriate comments with staff. noting pt to very affectionate with friend. ciwa at that time about 8. this afternoon, ciwa 13. pt reporting anxiety and notice patient to have flat affect. prn ativan given with effective results. pt sleeping with beads of sweat on forehead. situation endorsed to noc nurse.
[2016-10-29 04:22] VITALS: BP 135/90; PULSE 72; RESP 14; O2SAT 96
--- NOTE | 2016-10-29 04:28 | NUR ---
Nursing, NOC shift Patient is drowsy, wakens easily to verbal stimuli or light touch. Disoriented, mumbled speech. Continues w/ CIWA protocol, ranging from 4-9 thru NOC. PRN Ativan given several times thru HS/NOC. Frequent checks thru the night, patient sleeping, appears comfortable. Tele SR 80's w/ PVCs. CTM for changes.
[2016-10-29 06:51] LABS: Mean Corpuscular Hemoglobin 30.2 pg (27.0-35.0); Mean Corpuscular Volume 88.7 fL (81-100)
[2016-10-29] MEDS: Insulin LISPRO 300 Unit/3 mL Inj SUBQ SCH ×2 (08:00→12:00)
[2016-10-29 08:17] VITALS: BP 170/109; PULSE 89; RESP 16; O2SAT 94
[2016-10-29 08:56] VITALS: BP_SYST 152; BP_SYST 163; BP_DIAS 104; BP_DIAS 106
[2016-10-29] MEDS: Multivit-Miner-Folic Acid-Iron Tablet PO SCH (09:46)
[2016-10-29] MEDS ORDERED: CLOT60CR TOP (10:57)
[2016-10-29] MEDS ORDERED: CHLO25CA10 PO (11:46)
[2016-10-29] MEDS ORDERED: APIX5TAB PO (11:46)
[2016-10-29 11:59] VITALS: BP 155/92; PULSE 92; RESP 18; O2SAT 92
--- NOTE | 2016-10-29 13:14 | PCM.DIMED ---
Maico Moore DO 10/29/16 1153: Discharge Instructions Date of Service Oct 29, 2016 Dates of Hospitalization Oct 28, 2016 at 04:27 Discharge Diagnosis Discharge Diagnosis Acute shortness of breathe secondary to Pulmonary embolism. Acute alcohol withdrawal Coronary artery disease Depression Diabetes Medication Instructions Additional med instructions We would like you to take your original home meds with the following changes: Eliquis 5mg twice per day for the next 6 months Chlordiazepoxide 25-50mg every 6 hrs as needed for withdrawal symptoms. Test Results Test Results Multiple ultrasounds were performed looking for a clot in your legs or arm, none were found. A CT scan showed pulmonary emboli. A chest Xray did not show any acute disease. Diet Discharge Diet: No restrictions Activity Discharge Activity: No restrictions Call your provider Call your provider for: Fever or Chills, Shortness of breath, Bleeding, Chest pain, Vomitting, Excessive diarrhea, Weakness (unilateral) Patient Instructions Patient Instructions You have an appointment this Friday for alcoholic rehab which we would like you to keep. Until that time Please be VERY careful as to not fall, as per our discussion. Please do not consume alcohol as this will interact with the medications we are going you and make you much more likely to have a traumatic incident which will put you in the hospital. Come to the ED if you ever fall and hit your head, or ever have a bleed that you cannot control with simple compression. Follow-up plan follow up closely with your primary care doctor as you continue to detox. Follow-up Provider: [facility] Follow-up with PCP in: 1 week Sabas Bailey MD 10/29/16 1736: Discharge Instructions Attending's Statement The patient was seen and examined together with Dr. Moore on 10/29/2016 and I agree with the history, exam and plan as outlined in the note above. . Maico Moore DO Oct 29, 2016 11:53 Sabas Bailey MD Oct 29, 2016 17:36
[2016-10-29 13:27] VITALS: PULSE 109
--- NOTE | 2016-10-29 13:38 | NUR ---
Social Work: Initial Assessment/Safety Planning/Discharge D: Per EMR review, pt is a 51 year old male admitted for Acute Pulmonary Embolism, Intoxication. Pt is [employer] insurance with no Supplement, LTC or VA benefits, per pt. PCP is through [facility]. [facility] is not listed and pt declined to provide info. Readmit score is high, 5/8 with a recent admission on 10/07. Pt discussed in multidisciplinary rounds; capacity for self-care and discharge needs identified. No concerns at this time. BUSINESS SUPPORT PROFESSIONAL met with the patient at bedside. Sw role explained, contact information and d/c planning checklist provided. See initial assessment. pt is currently homeless living in different places (under bridges and trees). Pt uses a bicycle for transportation and is I with ADLs, self-care and ambulation. The patient expresses to this BUSINESS SUPPORT PROFESSIONAL that he has an appointment at [facility] on Friday with his CM, Geovany who is attempting to get him to inpatient CD treatment in [place]. The patient states that he was able to complete his O assessment after his last admission and is now just waiting for a bed. The patient became tearful during assessment and states that "sometimes I get so down about all of this" referencing his homelessness and lack of employment. BUSINESS SUPPORT PROFESSIONAL is familiar with the patient's situation and MH History and inquired about his overall mood and MH status. Pt states that he is generally hopeful for his future but other times states that "If I had access to a gun, I'd use it." BUSINESS SUPPORT PROFESSIONAL asked for clarification whether the patient was referencing suicide and/or homicide and he states that he was referencing suicide. After much reflective listening the patient states that he is not currently having these thoughts and that he does not have access to firearms or any other lethal means. The patient states that "I don't know if I would actually do it if I had one, its just how I feel when things get tough." Pt expresses forward thinking and engaged in future oriented conversations with BUSINESS SUPPORT PROFESSIONAL. Pt expresses that his mother, who is 85, is one of his biggest safety factors from attempting to kill himself. Pt states "I just couldn't do that to my mom. I mean I can't stay with her or anything but I still couldn't do that to her, you know?" When asked a final time, pt declines current suicidal, homicidal ideation and is not gravely disabled due to mental illness. Pt no experiencing a/v hallucinations. BUSINESS SUPPORT PROFESSIONAL and patient engaged in safety focused discussion. Pt is going to try his best to stay sober while he waits for his appointment with [place]. The patient states that he is going to "ride my bike" and "stay busy" as it helps him to not feel depressed about his current situation. The patient states that if he were to have increased thoughts of suicide and or took steps to obtain lethal means, he would return to the ED for MH assessment. The patient declined to have a follow up phone call from [facility] for a crisis check-in but accepted community MH and CD resources and entered the 23/09 crisis phone number into his phone. BUSINESS SUPPORT PROFESSIONAL updated resident and attending providers of this information and the patient is being discharged. A: Pt who is I at baseline awaiting inpatient CD treatment. P: Pt to discharge back to homelessness and to follow up at [facility] to coordinate Inpatient CD treatment with his Agricultural Research Technician. KIM Umanzor Addendum: 10/29/16 at 1404 by LORENZA BLANCHARD Amended: Links added.
--- NOTE | 2016-10-29 16:04 | NUR ---
Discharge Pt discharged at 1515. He was given discharge instructions and instructions for follow up care. An appointment had been made for him at the residency clinic. He was given medication education on 2 new prescription medications. He denied any questions. He left with hard copies of those prescriptions. Pt was walked to the exit by staff and he would be riding his bike.
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
[2016-10-30 14:09] LABS: Perinuclear (P-ANCA) <1:20 titer (Neg:<1:20)
[2016-10-31 00:08] LABS: Protein C-Functional 90 % (73-180)
[2016-10-31 01:08] LABS: dRVVT 39.5 sec (0.0-47.0)
== END 2016-10-29 15:15 | disposition home or self-care (01) | DRG 176 ==
LOC: SED 00:20 → PCC 04:27
PROVIDERS: ADMIT Hospitalist; ATTEND Internal Medicine
DX: I26.99 Other pulmonary embolism without acute cor pulmonale (principal); F10.239 Alcohol dependence with withdrawal, unspecified; Z95.5 Presence of coronary angioplasty implant and graft; I25.2 Old myocardial infarction; Z79.82 Long term (current) use of aspirin; F10.229 Alcohol dependence with intoxication, unspecified; Y90.8 Blood alcohol level of 240 mg/100 ml or more; I25.10 Atherosclerotic heart disease of native coronary artery without angina pectoris; F32.9 Major depressive disorder, single episode, unspecified; E11.9 Type 2 diabetes mellitus without complications

== ENCOUNTER 2016-11-14 18:58 | Inpatient (IN) | payer OTHER ==
[~2016-11-14] VITALS: Ht 167.6 cm; Wt 78.6 kg
[~2016-11-14 18:58] MED LIST changes: +APIX5TAB PO; +CLOT60CR TOP; -Clotrimazole TOPICAL
[2016-11-14 19:05] VITALS: BP 127/88; PULSE 97; RESP 16; O2SAT 95
--- NOTE | 2016-11-14 19:41 | ED.REPORT ---
HPI-Chest Pain 40 and Over Date of Service Nov 14, 2016 ED Provider: Gerhard Umaña PA-C Arturo is a 51-year-old male with a history of hypertension emergency department with a chief complaint of detox and chest pain. Patient admits to drinking alcohol today. He states that he has pain in his chest and it is "difficult to breathe." He can provide little additional history. Nursing Notes Stated Complaint: DETOX,CHEST PAIN Chief Complaint: Substance Abuse Nursing Notes Reviewed: Yes Allergies: Coded Allergies: No Known Allergies (Verified Allergy, Unknown, 11/14/16) Scheduled Apixaban (Eliquis) 5 Mg Tablet 5 MG PO BID Aspirin (Aspirin) 81 Mg Tablet 81 MG PO DAILY Carvedilol (Carvedilol) 3.125 Mg Tablet 3.125 MG PO BID Chlordiazepoxide (Chlordiazepoxide) 25 Mg Capsule 25 MG PO HS Citalopram (Citalopram) 20 Mg Tablet 20 MG PO DAILY Clopidogrel (Clopidogrel) 75 Mg Tablet 75 MG PO DAILY Clotrimazole (Athlete's Foot) 1 % Cream..g. 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 Patient has been diagnosed with malingering previously Past Medical History Multiple prior visits to the ED relating to EtOH abuse NSTEMI - july 2013 Alcohol abuse and alcohol dependence Anxiety Mitral regurgitation Cervical and lower back pain secondary to trauma Subdural hematoma "Self-reported PE found during an admission for TX" Alcohol related seizures Reports: Coronary artery disease, Diabetes mellitus, Hyperlipidemia, Hypertension Reports: Depression Past Surgical History Coronary stenting to mid left anterior artery and mid Left circumflex artery. Family History Patient denies any family history of heart disease or cancers. Smoking History Never Smoker Social History Patient is not and does not have any children. He denies any history of tobacco use, but admits to smoking marijuana. He also has a history of alcohol abuse. He usually drinks beer. He denies any history of drug abuse. Alcohol Use: >5 per day Drug Use: THC Other Social History: Local resident, Homeless Ambulatory Status Independent Review of Systems Unable to Obtain ROS Intoxicated Physical Exam General: Ill appearing, well developed, well nourished, moderate distress. Patient is vomiting, smells of alcohol, disheveled. Head: Atraumatic, normocephalic. Eyes: No scleral icterus or injection. No discharge. Vision grossly intact. ENT: hearing grossly intact. Respiratory: Regular rate and rhythm. Breath sounds present, clear to auscultation and equal bilaterally. No respiratory distress. No increased work of breathing Cardiovascular: Regular rate and rhythm, without murmur, gallop or rub. No pedal edema. Skin: Warm and dry. Neuro: Patient is arousable. Speech slurred. Initial Vital Signs Vital Signs (First) Date Time Temp Pulse Resp B/P Pulse Ox O2 Delivery O2 Flow Rate FiO2 11/14/16 19:05 36.6 97 16 127/88 95 Room Air Interpretation & Diagnostics Lab Results Interpretation Result Diagram: 11/14/16195311/14/161953 Test 11/14/16 19:54 White Blood Count 3.1th/mm3 (3.8-10.1) Red Blood Count 3.96mil/mm3 (4.40-5.80) Hemoglobin 12.5g/dL (13.8-17.2) Hematocrit 36.0% (41.0-50.0) Mean Corpuscular Volume 90.9fL (81-100) Mean Corpuscular Hemoglobin 31.6pg (27.0-35.0) Mean Corpuscular Hemoglobin Concent 34.7% (32.0-37.0) Red Cell Distribution Width 14.4% (12.3-15.4) Platelet Count 129bil/L (150-400) Neutrophils (%) (Auto) 49.5% (40-74) Lymphocytes (%) (Auto) 37.8% (14-46) Monocytes (%) (Auto) 9.8% (4-12) Eosinophils (%) (Auto) 1.3% (0-5) Basophils (%) (Auto) 1.6% (0-3) Prothrombin Time 9.4sec (8.1-12.5) Prothromb Time International Ratio 0.88ratio Sodium Level 143mEq/L (134-144) Potassium Level 3.6mEq/L (3.5-5.2) Chloride Level 103mEq/L (97-108) Carbon Dioxide Level 22mmol/L (18-29) Blood Urea Nitrogen 11mg/dL (6-24) Creatinine 0.77mg/dL (0.76-1.27) Estimat Glomerular Filtration Rate 113mL/min (>59) Glucose Level 121mg/dL (60-99) Calcium Level 8.5mg/dL (8.5-10.1) Magnesium Level 2.1mg/dL (1.6-2.6) Total Bilirubin 0.6mg/dL (0.0-1.2) Aspartate Amino Transf (AST/SGOT) 280U/L (0-50) Alanine Aminotransferase (ALT/SGPT) 114U/L (0-44) Alkaline Phosphatase 77U/L (25-150) Troponin T < 0.010ug/L (0.0-0.011) Total Protein 7.6g/dL (6.4-8.4) Albumin 4.3g/dL (3.4-5.0) Hold Fishman Top Tube Received (Received) Alcohols 408mg/dL (0-10) ECG Interpretation ECG Interpretation: Sinus rhythm, regular with a rate of 90. ST elevation probable normal early repol pattern. Negative for ischemic changes Time: 19:19 Interpreted by: ED physician (Dr. swanson) Re-Eval/Medical Decision Med Decision/Clinical Course 51-year-old male with a history of TX, alcohol abuse presents to the emergency department requesting detox in complaining of chest pain. He can provide little coherent history only stating that his chest hurts and is difficult to breathe. He was drinking alcohol today. He is a frequent ED visitor with many similar visits previously. This patient presents he is reclining on a gurney, vomiting. His speech is slurred, smells of alcohol. Vitals are normal. EKG, CBC, CMP, troponin, blood EtOH ordered. Provided ondansetron. CBC reveals a anemia with a hemoglobin of 12.5 and hematocrit of 36 as well as leukocytopenia with white blood cell count of 3.1. Thrombocytopenia at 129. CMP reveals elevated AST at 280, elevated ALTs at 114. Troponin is normal. INR normal. Blood alcohol was critical high at 408. EKG is reassuring. Chest x-ray is pending. Discussed the case and transferred care to Dr. Desir that shift change. Discharge & Departure Shift Change Sign-Out Patient Care Transferred: Yes (Dr Desir) Discussed Complaint(s): Yes Laboratory Evaluation: Lab evaluation discussed Imaging Studies: Done, await radiologist Primary Impression: Alcohol intoxication Complication of substance-induced condition: uncomplicated Qualified Code: F10.120 - Alcohol abuse with intoxication, uncomplicated Additional Impression: Chest pain Chest pain type: unspecified Qualified Code: R07.9 - Chest pain, unspecified Referrals: [facility] (PCP) EDSupervising Provider for APC: Manny Desir MD, Seth PA-C Nov 14, 2016 19:40
[2016-11-14] MEDS ORDERED: Ondansetron 8 mg ODT Tablet PO ONE (19:45)
[2016-11-14 20:01] VITALS: BP 115/73; PULSE 93; RESP 22; O2SAT 93
[2016-11-14 20:13] LABS: BASOPHILS % (AUTO) 1.6 % (0-3); EOSINOPHILS % (AUTO) 1.3 % (0-5); MONOCYTES % (AUTO) 9.8 % (4-12); Mean Corpuscular Hemoglobin 31.6 pg (27.0-35.0); Mean Corpuscular Volume 90.9 fL (81-100); NEUTROPHILS % (AUTO) 49.5 % (40-74); Platelet Count 129 bil/L (150-400)
[2016-11-14 20:33] LABS: INR 0.88 ratio
[2016-11-14 20:39] LABS: Magnesium 2.1 mg/dL (1.6-2.6)
[2016-11-14 20:42] LABS: TROPONIN T < 0.010 ug/L (0.0-0.011)
--- NOTE | 2016-11-14 21:40 | DRSVH ---
PROCEDURE: X-RAY CHEST ONE VIEW ([id number]) INDICATIONS: chest pain TECHNIQUE: One view of the chest was acquired. COMPARISON: None. FINDINGS: Surgical changes and devices: None. Lungs and pleura: No pleural effusions or pneumothorax. Lungs are unchanged with reduced inspirator y volume bilaterally. Mediastinum: Mediastinal contours appear normal. Heart size is normal. Bones and chest wall: No suspicious bony lesions. Overlying soft tissues appear unremarkable. Old left-sided rib fractures again noted. IMPRESSION: Source of acute chest pain is not found. Reduced inspiratory volume, old healed left po sterolateral rib fractures. Dictated by: Aung Gupta M.D. on 11/14/2016 at 21:38 Approved by: Aung Gupta M.D. on 11/14/2016 at 21:38
[2016-11-14 22:14] VITALS: BP 114/69; PULSE 90; RESP 11; O2SAT 95
[2016-11-14 23:21] VITALS: BP 110/66; PULSE 87; RESP 15; O2SAT 93
[2016-11-15] VITALS (8 sets, daily range): BP systolic 102–147; BP diastolic 53–91; PULSE 76–98; RESP 15–20; O2SAT 93–100
[2016-11-15] MEDS ORDERED: Multivitamin w/Vit K Inj 10 ML, Thiamine Inj 100 MG, Folic Acid Inj 1 MG, Magnesium Sul... IV ONE ×5 (07:20)
[2016-11-15] MEDS ORDERED: Ondansetron 2 mg/mL 2 mL Inj IVPUSH ONE (07:35)
--- NOTE | 2016-11-15 07:46 | DRSVH ---
PROCEDURE: CT BRAIN WITHOUT CONTRAST ([id number]) INDICATIONS: Trauma, anticoagulated TECHNIQUE: Noncontrast 4.5 mm thick angled axial sections acquired from the foramen magnum to the vertex, with c oronal reformats. COMPARISON: [facility], CT, head CT 06/12/2016. FINDINGS: Image quality: Excellent. CSF spaces: Basal cisterns are patent. No extra-axial fluid collections. Ventricles are normal in size and shape. Brain: Generalized cerebral and cerebellar atrophy with low-density in the subcortical and periventri cular white matter. No midline shift. No intracranial masses or hemorrhage. Blackwell-white matter inter face is normal. Skull and face: Calvarium and visualized facial bones are intact, without suspicious lesions. Sinuses: Likely previous medial maxillary sinus antrostomies. Maxillary mucosal sinus thickening. Les ser ethmoid air submucosal thickening and thickening and a right sphenoid sinus. Remaining visualized frontal sinuses and mastoid air cells are clear.. IMPRESSION: 1. No CT evidence of acute intracranial pathology. 2. Generalized cerebral and cerebellar atrophy. 3. Sinusitis. Dictated by: Geovany Mcclure M.D. on 11/15/2016 at 7:40 Approved by: Geovany Mcclure M.D. on 11/15/2016 at 7:45
[2016-11-15] MEDS ORDERED: Heparin 25K Unit/500mL 0.45 NS 25,000 UNIT in IV Premix 1 EACH IV ONE (08:00)
[2016-11-15] MEDS ORDERED: Heparin 5,000 Unit/mL Inj IVPUSH ONE (08:00)
[2016-11-15] MEDS ORDERED: Ondansetron 2 mg/mL 2 mL Inj IVPUSH PRN ×2 (08:40→09:15)
[2016-11-15] MEDS ORDERED: Alum-Mag Hydrox-Simeth 30 mL Suspension PO PRN ×2 (08:40→09:15)
[2016-11-15] MEDS ORDERED: Polyethylene Glycol (PEG) 17 Gm Powder PO PRN (09:15)
[2016-11-15 10:10] LABS: APPEARANCE,URINE HAZY (CLEAR,HAZY); COLOR,URINE YELLOW (YELLOW); OCCULT BLOOD,URINE NEGATIVE (NEGATIVE); PH,URINE 5.5 (5.0-8.0); UROBILINOGEN,URINE NORMAL (NORMAL)
[2016-11-15] MEDS: 0.9% Sodium Chloride 1,000 ML IV SCH ×2 (11:00→18:40)
--- NOTE | 2016-11-15 13:22 | PCM.HPMED ---
Subjective Date of Service Nov 15, 2016 Primary Provider: Admitting Physician: Oracio Donovan MD Primary Care Physician: [facility] Attending Physician: Oracio Donovan MD Admit Status: From the Emergency Department, Full Admit, [facility] Telemetry Chief Complaint: Alcohol withdrawal and chest pain History of Present Illness: This is a 51-year-old gentleman who presents to the ER with chest pain which increases with movement, palpation or deep breathing as well as alcohol intoxication. The patient is long history of recurrent alcohol withdrawal episodes at the hospital. He presents now about a week after being discharged. The patient was discharged with diagnosis of pulmonary embolism and given a prescription for anticoagulant was failed to use this. In the emergency department physician talked almost 400 was watched overnight and now is mild wall. The patient denies any shortness of breath because having left-sided chest pain which increases with palpation or deep breathing. No hemoptysis. No leg pain or edema. He did suffer a fall with trauma to the chest yesterday per his report. He was also noted to have facial abrasions and therefore had a CT scan in the ER which was negative for evidence of bleed. He does have a more remote history of a subdural hematoma. He denies any dyspnea with exertion nausea or diarrhea. Review of Systems: All else reviewed and otherwise unremarkable except as noted in the history of present illness Allergies Coded Allergies: No Known Allergies (Verified Allergy, Unknown, 11/15/16) Home Medications Apixaban (Eliquis) 5 Mg Tablet 5 MG PO BID Aspirin (Aspirin) 81 Mg Tablet 81 MG PO DAILY Carvedilol (Carvedilol) 3.125 Mg Tablet 3.125 MG PO BID Chlordiazepoxide (Chlordiazepoxide) 25 Mg Capsule 25 MG PO HS Citalopram (Citalopram) 20 Mg Tablet 20 MG PO DAILY Clopidogrel (Clopidogrel) 75 Mg Tablet 75 MG PO DAILY Clotrimazole (Athlete's Foot) 1 % Cream..g. 1 APPLIC TOP BID Multivits-Min/FA/Lycopene/Lut (Centrum Silver Tablet) 1 Each Tablet 1 EACH PO QAM Pravastatin (Pravastatin) 40 Mg Tablet 40 MG PO DAILY Thiamine Mononitrate (Vitamin B-1) 100 Mg Tablet 100 MG PO QAM Scheduled PRN Chlordiazepoxide (Chlordiazepoxide) 25 Mg Capsule 25-50 MG PO Q6H PRN PRN For Agitation PMH I will call lives in CAD with history of NSTEMI Chronic anxiety Chronic neck and back. Remote subdural hematoma Recent diagnosis of pulmonary embolism. Medication noncompliance. Diabetes mellitus 2. Essential hypertension Dyslipidemia Family History Denies history of CAD or cancer Social History Occupation: none Hx Alcohol Use: Yes ("A lot") Hx Substance Use: Yes ("smoke pot") Hx Tobacco Use: No Smoking Status: Never Smoker Living Arrangement: Homeless Exam Vital Signs Vital Sign - Last Date Time Temp Pulse Resp B/P Pulse Ox O2 Delivery O2 Flow Rate FiO2 11/15/16 11:23 36.9 85 18 146/91 96 Nasal Cannula 2.00 Intake and Output 11/14/16 11/14/16 11/15/16 Cumulative From/Thru 15:00 23:00 07:00 11/14/16 19:05 - 11/15/16 06:00 Intake Total 10 ml 10 ml Balance 10 ml 10 ml Intake Oral 10 ml 10 ml Exam Oriented 3. No distress. Fluent speech. Flat affect, lethargic. 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 Multiple facial abrasions. Normal skull. Normal nose and ears. Anicteric sclera, symmetric pupils and conjugate gaze Oropharynx is unremarkable, no facial droop. Neck is supple, normal thyroid. No adenopathy. Lungs are clear, normal effort rate. Heart is regular without murmur gallop or rub. Abdomen soft, nondistended or tender. Extremities are free of pedal edema. Good radial and pedal pulses. Skin is free of rash, lesions. No petechiae or ecchymosis. Joints are grossly normal. Cranial nerves are grossly normal. Motor strength is normal in all extremities. Normal muscular tone. Lab and Diagnostics Result Diagram: 11/14/16195311/14/161953 X-Rays, CTs and MRIs Brain CT unremarkable. Chest x-ray is unremarkable except for old left-sided rib fractures 12-lead ECG ECG sinus rhythm, early repolarization noted. Assessment & Plan #. Acute alcohol withdrawal syndrome, present on admission and active. Will place on the CIWA protocol and fluid resuscitated. Thiamine and folate. #. Musculoskeletal chest pain, present on admission active. Analgesia as needed. #. Pulmonary embolism, previously diagnosed present on admission and active. Heparin drip was transitioned to oral anticoagulation. #. Diabetes mellitus to, present on admission and active. Correctional lispro, at bedtime Lantus #. Essential hypertension, present on admission and active. Monitor clinically and treat as needed. #. Chronic anxiety, present on admission and active. Treat with anxiolytics as needed. Patients for resuscitation discussed the time of admission He is admitted inpatient status, 2 nights length of stay expected. Pain Evaluation: Adequate Pain Control Resuscitation Status: CPR: Attempt Resuscitation Time spent 45 minutes Oracio Donovan MD Nov 15, 2016 13:22
[2016-11-15] MEDS ORDERED: Glucose 40% Oral Gel 15 Gm Tube PO PRN ×2 (13:25→13:45)
--- NOTE | 2016-11-15 14:50 | DRSVH ---
[facility] [address] [place] [address] Echocardiogram Report Name: DEBBIE SCHULTZ Study Date: 11/15/2016 Height: 64 in Hospital Exam Location: [facility] Weight: 180 lb Gender: Male BSA: 1.9 m2 : 1965 Age: 51 yrs BP: 119/72 m mHg Reason For Study: Pulmonary- Embolism Performed By: Flavio Sands Referring Physician: SHAHID HUSSEIN Interpretation Summary 1) Grossly normal left ventricular size and function (EF 65-70%). 2) Borderline dilated right ventricle with normal function 3) Pulmonary artery pressures cannot be estimated because of the lack of a measurable TR jet velocity. 4) No pericardial effusion present. 5) Compared to the Echo done 10/28/2016, RV size has increased from normal to borderline dilated on today's study. Procedure: A two-dimensional transthoracic echocardiogram with color flow and Doppler was performed in limited views only. The study quality was technically adequate. Comparison is made with the echocardiogram of 10/28/16. The patient was in normal sinus rhythm during the exam. Left Ventricle: The left ventricle is grossly normal size. The left ventricular ejection fraction is grossly normal. The ejection fraction is estimated to be 65-70%. Right Ventricle: The right ventricle is borderline dilated. The right ventricular systolic function is normal. Tricuspid Valve: Pulmonary artery pressures cannot be estimated because of the lack of a measurable TR jet velocity. Great Vessels: The inferior vena cava was not well visualized. Reading Physician:02:49 PM
[2016-11-15] MEDS: Insulin LISPRO 300 Unit/3 mL Inj SUBQ SCH ×2 (17:30→21:22)
[2016-11-15] MEDS ORDERED: Insulin LISPRO 300 Unit/3 mL Inj SUBQ SCH (17:30)
--- NOTE | 2016-11-15 19:02 | NUR ---
Admit Pt arrived very confused. Strong alcohol odor. Not oriented to place, did not know last name or birthday. Pt slept for a bit up and then woke up more A&O. Answered all questions appropriately. Able to make needs known. Steady on feet, SBA. C/O 8/10 chest pain, MD aware. Morphine given. No further c/o pain. Ativan given X2 for CIWA score of 10. C/O tremors and hallucinations. Pt tolerated ice water and eventually a heart healthy diet. CBG 124.
[2016-11-15] MEDS: Insulin GLARgine 100 Unit/mL Syringe SUBQ SCH (21:00)
[2016-11-15] MEDS ORDERED: Insulin GLARgine 100 Unit/mL Syringe SUBQ SCH (21:00)
[2016-11-16] VITALS (8 sets, daily range): BP systolic 128–164; BP diastolic 78–110; PULSE 74–121; RESP 14–18; O2SAT 96–98
--- NOTE | 2016-11-16 02:11 | NUR ---
CIWA Uneventful night. Pt had CIWA score between 3 and 10. VSS, no pain or chest discomfort, just slight anxiety. A&Ox3 with occasional forgetfulness. Hep gtt @ 18 units/kg/hr
[2016-11-16] MEDS: 0.9% Sodium Chloride 1,000 ML IV SCH ×3 (04:36→18:24)
[2016-11-16] MEDS: Insulin LISPRO 300 Unit/3 mL Inj SUBQ SCH ×4 (09:15→21:35)
--- NOTE | 2016-11-16 11:13 | PCM.PNMED ---
Subjective Date of Service Nov 16, 2016 Subjective He is doing poorly today. He states he is hallucinating. His current CIWA scores 28. He did sleep through the night. He is somewhat nauseated but has not vomited. No diarrhea. He has ongoing chest pain which is left-sided pleuritic as well as positional. No abdominal pain. No other overnight events noted. Exam Vital Signs Vital Sign - Last Date Time Temp Pulse Resp B/P Pulse Ox O2 Delivery O2 Flow Rate FiO2 11/16/16 09:06 37.0 89 18 146/110 98 Nasal Cannula 2.00 Intake and Output 11/15/16 11/15/16 11/16/16 Cumulative From/Thru 15:00 23:00 07:00 11/14/16 19:05 - 11/16/16 06:29 Intake Total 2412 ml 1725 ml 4147 ml Output Total 925 ml 3200 ml 4125 ml Balance 1487 ml -1475 ml 22 ml Intake Oral 520 ml 300 ml 830 ml IV Total 1892 ml 1425 ml 3317 ml Output Urine Total 925 ml 3200 ml 4125 ml # Voids 7 7 # Bowel Movements 2 1 3 Exam Alert and oriented -3, no distress. Fluent speech. Patient is malodorous. Anicteric sclera. Lungs are clear with normal rate and effort Heart is regular without murmur gallop or rub Abdomen soft nontender, flat Extremities are free of edema. Skin is free of rash or lesions. IVs and Medications Medications Reviewed: Medications were reviewed in detail Lab and Diagnostics Result Diagram: 11/14/16195311/14/161953 X-Rays, CTs and MRIs Brain CT unremarkable. Chest x-ray is unremarkable except for old left-sided rib fractures 12-lead ECG ECG sinus rhythm, early repolarization noted. Assessment & Plan #. Acute alcohol withdrawal syndrome, present on admission and active. We will continue CIWA protocol. #. Musculoskeletal chest pain, present on admission active. Analgesia as needed. No other changes for today. #. Pulmonary embolism, previously diagnosed present on admission and active. Heparin drip will continue. We will come up with a discharge anticoagulation plan as we get closer to resolution I will call with fall. #. Diabetes mellitus 2, present on admission and active. Correctional lispro, at bedtime Lantus. No change in his medical regimen. #. Essential hypertension, present on admission and active. Monitor clinically and restart carvedilol 6.25 mg twice a day today. #. Chronic anxiety, present on admission and active. Treat with anxiolytics as needed. Patients for resuscitation discussed the time of admission He is admitted inpatient status, 2 nights length of stay expected. VTE Mechanical Devices: Intermittant Pneumatic CD Resuscitation Status: CPR: Attempt Resuscitation Oracio Donovan MD Nov 16, 2016 11:13
[2016-11-16] MEDS: Triamcinolone 0.1% 30 Gm Cream TOPICAL SCH ×2 (16:17→20:30)
--- NOTE | 2016-11-16 16:30 | NUR ---
Social Work- Initial Assessment/Readiness for Discharge Data: EMR reviewed. Pt is a 51 year old male admitted for etoh intoxication, withdrawal per H&P. Pt is listed as self-pay insurance. Pt's listed PCP is [facility] in [place]. Pt's readmit risk score is 3/8. Pt has no NOK listed. No order for Sub. Abuse Assessment has been received at this time. SW met with pt at bedside to discuss d/c plan, SW role explained. Pt A&O x3. Pt reports that he has [employer], no insurance is listed. SW to follow up regarding this tomorrow. Pt's CIWA 2 at this time. Pt resides in [place], has no permanent housing. Pt is on the housing waitlist for [facility] [employer] and is familiar with [facility] but there often are no beds available. Pt confirms history of etoh abuse, in brief discussion has limited insight as to the severity of his use. Pt believes that other psychosocial factors including lack of housing and employment are contributing to his etoh abuse. Pt requesting information/resources related to housing. Pt is not working at this time, states that he has no income available. Pt denies any local friends that he feels comfortable asking for assistance. Pt to be provided with employment, outpt CD, and housing resources tomorrow. Pt is agreeable to this. Pt will likely d/c to the community when medically stable. SW provided phone number on whiteboard, pt is agreeable. SW will continue to follow. Assessment: pt who is independent with ADLs and self-care with no permanent housing at this time. Plan: Pt requesting housing and employment assistance. Pt has limited insight into etoh abuse at this time. Pt to be provided with employment, outpt CD, and housing resources tomorrow. Pt will likely d/c to the community when medically stable. SW will continue to follow. KIM Arredondo
--- NOTE | 2016-11-16 16:31 | NUR ---
CIWA/Behavior/blood pressure pt CIWA improving throughout shift(28-17-2). Ativan 2mg given per md order. pt noted to be rather tremulous this morning requiring a contact guard assist to bathroom. IVF and heparin infusing per md orders. pt became agitated mid afternoon. pulling out both IVs and stating "I gotta get out here". pt calmed with discussion of situation and verbalization of needs. PIV replaced and IVF restarted. pt up in bathroom, continued to clean himself up and stated he felt better. Pt blood pressure elevated. values related to MD. blood pressure meds restarted. care continues.
[2016-11-16] MEDS: Heparin 25K Unit/500mL 0.45 NS 25,000 UNIT in IV Premix 1 EACH IV SCH (18:25)
[2016-11-16] MEDS: Insulin GLARgine 100 Unit/mL Syringe SUBQ SCH (22:03)
[2016-11-17] VITALS (10 sets, daily range): BP systolic 118–153; BP diastolic 77–110; PULSE 76–111; RESP 16–20; O2SAT 96–99
--- NOTE | 2016-11-17 04:32 | NUR ---
CIWA, mentation Vs as noted. CIWA 3 tonight without need for intervention. Melatonin given at HS for sleep with positive effect. Heparin gtt continues at 18units/kg/h. IVF NS at 100ml/h. Up and ambulating in room independently. Tele sinus tach 100s.
[2016-11-17 05:05] LABS: BASOPHILS % (AUTO) 1.2 % (0-3); EOSINOPHILS % (AUTO) 3.2 % (0-5); MONOCYTES % (AUTO) 15.8 % (4-12); Mean Corpuscular Hemoglobin 30.8 pg (27.0-35.0); Mean Corpuscular Volume 90.1 fL (81-100); NEUTROPHILS % (AUTO) 52.6 % (40-74); Platelet Count 111 bil/L (150-400)
[2016-11-17] MEDS: Insulin LISPRO 300 Unit/3 mL Inj SUBQ SCH ×4 (08:00→22:00)
[2016-11-17] MEDS: Triamcinolone 0.1% 30 Gm Cream TOPICAL SCH ×2 (08:28→20:43)
--- NOTE | 2016-11-17 09:28 | PCM.PNMED ---
Subjective Date of Service Nov 17, 2016 Subjective He is still little anxious today. Otherwise he feels well. He denies any chest pain cough or shortness of breath. Some abdominal pain. No diarrhea. He is still weak and wobbly on his feet. No events noted. Exam Vital Signs Vital Sign - Last Date Time Temp Pulse Resp B/P Pulse Ox O2 Delivery O2 Flow Rate FiO2 11/17/16 08:19 36.6 83 20 144/109 96 Room Air 11/16/16 09:06 2.00 Intake and Output 11/16/16 11/16/16 11/17/16 Cumulative From/Thru 15:00 23:00 07:00 11/14/16 19:05 - 11/17/16 05:19 Intake Total 1850 ml 1869 ml 7866 ml Output Total 2315 ml 1900 ml 8340 ml Balance -465 ml -31 ml -474 ml Intake Oral 636 ml 300 ml 1766 ml IV Total 1214 ml 1569 ml 6100 ml Output Urine Total 2315 ml 1900 ml 8340 ml # Voids 7 # Bowel Movements 2 5 Exam Alert and oriented -3, no distress. Fluent speech Anicteric sclera. Lungs are clear with normal rate and effort Heart is regular without murmur gallop or rub Abdomen soft nontender, flat Extremities are free of edema. Skin is free of rash or lesions. IVs and Medications Medications Reviewed: Medications were reviewed in detail Lab and Diagnostics Result Diagram: 11/17/165 11/14/161953 X-Rays, CTs and MRIs Brain CT unremarkable. Chest x-ray is unremarkable except for old left-sided rib fractures 12-lead ECG ECG sinus rhythm, early repolarization noted. Assessment & Plan #. Acute alcohol withdrawal syndrome, present on admission and improving. We will continue CIWA protocol. #. Musculoskeletal chest pain, present on admission and improving. Analgesia as needed. No other changes for today. #. Pulmonary embolism, previously diagnosed present on admission and active. Heparin drip will continue. We will come up with a discharge anticoagulation plan as we get closer to discharge. #. Diabetes mellitus 2, present on admission and active. Correctional lispro, at bedtime Lantus. No change in his medical regimen. Unstable #. Essential hypertension, present on admission and active. Monitor clinically and restart carvedilol 6.25 mg twice a day today. #. Chronic anxiety, present on admission and active. Treat with anxiolytics as needed. Patients for resuscitation discussed the time of admission He is admitted inpatient status, 2 nights length of stay expected. Anticipate discharge home on November 18. VTE Mechanical Devices: Intermittant Pneumatic CD Resuscitation Status: CPR: Attempt Resuscitation Oracio Donovan MD Nov 17, 2016 09:28
[2016-11-17] MEDS: 0.9% Sodium Chloride 1,000 ML IV SCH (10:40)
[2016-11-17] MEDS: Heparin 5,000 Unit/mL Inj IVPUSH PRN ×2 (12:58→18:38)
[2016-11-17] MEDS: Heparin 25K Unit/500mL 0.45 NS 25,000 UNIT in IV Premix 1 EACH IV SCH (12:58)
--- NOTE | 2016-11-17 16:24 | NUR ---
CIWA/mentation pt reported seeing shadows and being anxious about plans after discharge. CIWA score throughout day 1. pt pleasant and cooperative with care. pt alert and oriented, slight forgetful at times. heparin infusion continues per md order. pt sba to I to bathroom and tolerating diet. care continues.
--- NOTE | 2016-11-17 17:39 | NUR ---
Social Work- Substance Abuse Assessment Current Circumstances: Pt admitted for etoh withdrawal. Pt is on day three of admission, likely to d/c tomorrow. Pt is a chronic readmit for etoh withdrawal, chart review reveals three admissions in the last month. SW met with pt and SO Petrona at bedside. Pt agreeable to complete assessment with Petrona present. History of Substance Abuse: Pt started drinking at 16, reports very few prolonged periods of sobriety. Pt denies any additional illicit substances. History of Treatment: Pt has history with [facility] outpt CD treatment as well as [facility] ([place], [place]). Family History: Pt is unaware of any family history of substance abuse or mental illness. History of Sobriety: Pt reports drinking daily except for periods of time when he was in [facility], outpt CD through [facility], and SNF for rehab. History of Withdrawal Symptoms: Pt has history of seizures, anxiety, auditory and visual hallucinations, and tremors. Pt's perception of use: Pt endorses a sense of hopelessness about his situation which contributes to his excessive etoh consumption. Pt endorses that he is interested in sobriety, but also acknowledges that he has not taken the steps to complete this. Pt shows increased insight into this situation today vs. conversation yesterday. Suicide Risk: Pt has history of suicide attempt (hanging) approximately 4 months ago, consistently endorses feeling "depressed". Pt intended to follow up with an appointment with Geovany at [facility] for after previous admission. Today reports that he forgot to go to his appointment but still has the business card. Pt endorses feelings of loneliness and anxiety in addition to hopelessness related to his current housing situation. The psychosocial and emotional stressors of living without permanent housing are contributing to pt's current emotional state and etoh abuse. Pt's SO Petrona is optimistic that they will be able to find housing together and she intends to assist pt with obtaining SSI. Petrona is currently living in a home with her mother in [place], unable to temporarily house patient. Pt denies any current SI or HI, denies intent or plan at this time. Pt's thoughts are clear, linear, and goal oriented. Pt expresses hope even when describing his hardships. Recommendation for Referral: Pt provided with outpt CD and resources at bedside, encouraged to make another appointment with [facility] or [facility] (pt's SO is familiar with [facility] and offered to assist pt). Pt also provided with all housing and employment resources available. SW to follow up tomorrow to offer any support or assistance coordinating follow up on day of discharge. Pt to discharge tomorrow back to the community, appreciative of the resources. SW will continue to follow. KIM Arredondo
[2016-11-17] MEDS: Insulin GLARgine 100 Unit/mL Syringe SUBQ SCH (20:51)
[2016-11-18 03:17] VITALS: BP 127/88; PULSE 79; RESP 16; O2SAT 97
--- NOTE | 2016-11-18 04:17 | NUR ---
Heparin Gtt/CIWA Patient on heparin gtt, DVT protocol. Heparin running at 22/units/kg/hour. CIWA of 4 due to anxiety in the evening. Patient very worried about being able to sleep. Melatonin and ativan given per orders and patient sleeping well overnight.
[2016-11-18] MEDS: Heparin 25K Unit/500mL 0.45 NS 25,000 UNIT in IV Premix 1 EACH IV SCH (07:38)
[2016-11-18] MEDS: Insulin LISPRO 300 Unit/3 mL Inj SUBQ SCH ×2 (08:00→12:00)
[2016-11-18 08:42] VITALS: BP 138/95; PULSE 79; RESP 18; O2SAT 95
[2016-11-18] MEDS: Triamcinolone 0.1% 30 Gm Cream TOPICAL SCH (08:49)
[2016-11-18 10:30] VITALS: PULSE 70
--- NOTE | 2016-11-18 11:36 | PCM.DIMED ---
Discharge Instructions Date of Service Nov 18, 2016 Dates of Hospitalization Nov 15, 2016 at 07:39 Discharge Diagnosis Discharge Diagnosis #. Acute alcohol withdrawal syndrome, resolved. #. Musculoskeletal chest pain, improved. #. Pulmonary embolism, stable. #. Diabetes mellitus 2, stable. #. Essential hypertension, stable. #. Chronic anxiety, stable. Diet Discharge Diet: Diabetic Activity Discharge Activity: No restrictions Call your provider Call your provider for: Fever or Chills, Shortness of breath, Chest pain Patient Instructions Follow-up Provider: Ping Rivera MD Follow-up with PCP in: 1 week Oracio Donovan MD Nov 18, 2016 11:36
[2016-11-18] MEDS ORDERED: CARV3.122 PO (11:37)
[2016-11-18] MEDS ORDERED: APIX5TAB PO (11:37)
[2016-11-18 12:00] VITALS: BP 142/100; PULSE 102; RESP 16; O2SAT 96
--- NOTE | 2016-11-18 12:36 | PCM.DC.MED ---
Discharge Summary Date of Service Nov 18, 2016 Dates of Hospitalization Date of Hospital Admission Nov 15, 2016 at 07:39 Date of Discharge: Nov 18, 2016 Providers: Admitting Physician: Oracio Donovan MD [facility]: Oracio Donovan MD Diagnosis at Time of Discharge Diagnosis at Time of Discharge #. Acute alcohol withdrawal syndrome, resolved. #. Musculoskeletal chest pain, improved. #. Pulmonary embolism, stable. #. Diabetes mellitus 2, stable. #. Essential hypertension, stable. #. Chronic anxiety, stable. Consultations None Procedures XRay, CTs & MRIs Brain CT unremarkable. Chest x-ray is unremarkable except for old left-sided rib fractures ECG 12 Lead ECG sinus rhythm, early repolarization noted. Invasive Procedures None Brief History This is a 51-year-old gentleman who presents to the ER with chest pain which increases with movement, palpation or deep breathing as well as alcohol intoxication. The patient is long history of recurrent alcohol withdrawal episodes at the hospital. He presents now about a week after being discharged. The patient was discharged with diagnosis of pulmonary embolism and given a prescription for anticoagulant was failed to use this. In the emergency department physician talked almost 400 was watched overnight and now is mild wall. The patient denies any shortness of breath because having left-sided chest pain which increases with palpation or deep breathing. No hemoptysis. No leg pain or edema. He did suffer a fall with trauma to the chest yesterday per his report. He was also noted to have facial abrasions and therefore had a CT scan in the ER which was negative for evidence of bleed. He does have a more remote history of a subdural hematoma. He denies any dyspnea with exertion nausea or diarrhea. Hospital Course #. Acute alcohol withdrawal syndrome, present on admission and improving. We will continue CIWA protocol. #. Musculoskeletal chest pain, present on admission and improving. Analgesia as needed. No other changes for today. #. Pulmonary embolism, previously diagnosed present on admission and active. Heparin drip will continue. We will come up with a discharge anticoagulation plan as we get closer to discharge. #. Diabetes mellitus 2, present on admission and active. Correctional lispro, at bedtime Lantus. No change in his medical regimen. Unstable #. Essential hypertension, present on admission and active. Monitor clinically and restart carvedilol 6.25 mg twice a day today. #. Chronic anxiety, present on admission and active. Treat with anxiolytics as needed. Patients full resuscitation discussed the time of admission Hospital course. This patient was admitted for alcohol intoxication and consequent withdrawal. He was placed on a heparin drip for his known DVT and pulmonary embolism. The patient improved over the next 2-1/2 days. He did have muscle skeletal pain of the anterior chest as well. He had no hypoxia or evidence of hemodynamic instability. The patient was considered for placement of an IVC filter due to medication noncompliance however it was felt to be reasonable to give him one further chance to follow through with his medications. The patient understands he has to take his anticoagulant twice a day. He will be placed on Eliquis at 5 mg daily as he is very been heparinized for the last several days. The patient is asked to see his primary care doctor (Nicole) within a week. If the patient represents to the hospital again having not taken anticoagulates again, placement of IVC filter may be reasonable. The downside is of course he can only be in for a limited amount of time such as 3 months. Exam Vital Signs (Last) Date Time Temp Pulse Resp B/P Pulse Ox O2 Delivery O2 Flow Rate FiO2 11/18/16 10:30 70 11/18/16 08:42 36.5 18 138/95 95 Room Air 11/16/16 09:06 2.00 Exam Patient was seen and examined on the day of discharge Test 11/14/16 19:54 11/15/16 03:00 11/15/16 09:20 11/17/16 04:55 Prothrombin Time 9.4sec (8.1-12.5) Prothromb Time International Ratio 0.88ratio Sodium Level 143mEq/L (134-144) Potassium Level 3.6mEq/L (3.5-5.2) Chloride Level 103mEq/L (97-108) Carbon Dioxide Level 22mmol/L (18-29) Blood Urea Nitrogen 11mg/dL (6-24) Creatinine 0.77mg/dL (0.76-1.27) Estimat Glomerular Filtration Rate 113mL/min (>59) Glucose Level 121mg/dL (60-99) Calcium Level 8.5mg/dL (8.5-10.1) Magnesium Level 2.1mg/dL (1.6-2.6) Total Bilirubin 0.6mg/dL (0.0-1.2) Aspartate Amino Transf (AST/SGOT) 280U/L (0-50) Alanine Aminotransferase (ALT/SGPT) 114U/L (0-44) Alkaline Phosphatase 77U/L (25-150) Total Protein 7.6g/dL (6.4-8.4) Albumin 4.3g/dL (3.4-5.0) Hold [place] Top Tube Received (Received) Alcohols 408mg/dL (0-10) Hold Urine Received (Received) Troponin T 0.010ug/L (0.0-0.011) Urine Color Yellow (YELLOW) Urine Appearance Hazy (CLEAR,HAZY) Urine pH 5.5 (5.0-8.0) Urine Specific [place] 1.030 (1.003-1.035) Urine Protein Negativemg/dL (NEG,TRACE) Urine Glucose (UA) Negativemg/dL (NEGATIVE) Urine Ketones Negativemg/dL (NEGATIVE) Urine Occult Blood Negative (NEGATIVE) Urine Nitrite Negative (NEGATIVE) Urine Bilirubin Negative (NEGATIVE) Urine Urobilinogen Normalmg/dL (NORMAL) Urine Leukocyte Esterase Negative (NEGATIVE) Urine RBC 0-2/hpf (0-2) Urine WBC 0-5/hpf (0-5) Urine Epithelial Cells Occasional/hpf (NONE-MOD) Urine Crystals None seen (NONE SEEN) Urine Bacteria None/hpf (NONE-FEW) Urine Hyaline Casts None/lpf (NONE) Urine Granular Casts None seen (NONE SEEN) Urine Waxy Casts None seen (NONE SEEN) Urine Red Blood Cell Casts None seen (NONE SEEN) Urine White Blood Cell Casts None seen (NONE SEEN) Urine Mucus Present (None Seen) Urine Trichomonas None seen (NONE SEEN) Urine Yeast None (NONE SEEN) Urinalysis Comment None Urine Culture Reflexed Not indicated Urine Opiates Screen Negative Urine Methadone Screen Negative Urine Barbiturates Screen Negative Urine Amphetamines Screen Negative Urine Benzodiazepines Screen Negative Urine Cocaine Metabolite Screen Negative Urine Cannabinoids Screen Positive White Blood Count 3.4th/mm3 (3.8-10.1) Red Blood Count 4.25mil/mm3 (4.40-5.80) Hemoglobin 13.1g/dL (13.8-17.2) Hematocrit 38.3% (41.0-50.0) Mean Corpuscular Volume 90.1fL (81-100) Mean Corpuscular Hemoglobin 30.8pg (27.0-35.0) Mean Corpuscular Hemoglobin Concent 34.2% (32.0-37.0) Red Cell Distribution Width 14.0% (12.3-15.4) Platelet Count 111bil/L (150-400) Neutrophils (%) (Auto) 52.6% (40-74) Lymphocytes (%) (Auto) 26.9% (14-46) Monocytes (%) (Auto) 15.8% (4-12) Eosinophils (%) (Auto) 3.2% (0-5) Basophils (%) (Auto) 1.2% (0-3) Test 11/18/16 06:40 Activated Partial Thromboplast Time 62.7sec (22.8-33.0) Discharge Medications Discharge Medications Apixaban (Eliquis) 5 Mg Tablet 5 MG PO BID Prescribed by: ORACIO DONOVAN MD Carvedilol (Carvedilol) 3.125 Mg Tablet 3.125 MG PO BIDWM Prescribed by: ORACIO DONOVAN MD Followup Plan Disposition: Home Discharge Diet: Diabetic Discharge Activity: No restrictions Follow-up Provider: Ping Rivera MD Follow-up with PCP in: 1 week Time spent 40 minutes Oracio Donovan MD Nov 18, 2016 12:36
--- NOTE | 2016-11-18 13:20 | NUR ---
discharge pt ordered for discharge to community and self. pt aware and agreeable. discharge instructions and medications reviewed with patient. prescriptions given to patient. pt escorted with steady gait and all belongings to front lobby about 1315.
== END 2016-11-18 13:10 | disposition home or self-care (01) | DRG 896 ==
LOC: SED 18:58 → PCC 11-15 07:39
PROVIDERS: ADMIT Hospitalist; ATTEND Hospitalist
DX: F10.239 Alcohol dependence with withdrawal, unspecified (principal); I26.99 Other pulmonary embolism without acute cor pulmonale; Y90.8 Blood alcohol level of 240 mg/100 ml or more; F12.90 Cannabis use, unspecified, uncomplicated; I10 Essential (primary) hypertension; E78.5 Hyperlipidemia, unspecified; E11.9 Type 2 diabetes mellitus without complications; I25.10 Atherosclerotic heart disease of native coronary artery without angina pectoris; F41.9 Anxiety disorder, unspecified; Z91.5 Personal history of self-harm; Z95.5 Presence of coronary angioplasty implant and graft; Z79.82 Long term (current) use of aspirin; Z59.0 Homelessness; Z91.19 Patient's noncompliance with other medical treatment and regimen